=== PATIENT | male | born 1980 | race Caucasian/White ===

== ENCOUNTER 2017-11-06 16:05 | Emergency (ER) | payer SELFPAY ==
[2017-11-06] MEDS ORDERED: Lidocaine 1% 20 ML MDV INJECT ONE (16:51)
--- NOTE | 2017-11-06 16:56 | EDM.PDOC ---
ED HPI GENERAL MEDICAL PROBLEM - General Chief Complaint: Laceration Stated Complaint: CUT TO LEFT HAND Time Seen by Provider: 11/06/17 16:52 Source of Information: Reports: Patient History Limitations: Reports: No Limitations - History of Present Illness INITIAL COMMENTS - FREE TEXT/NARRATIVE: HISTORY AND PHYSICAL: []37-year-old male presenting with a laceration to the next finger on his left hand History of Present Illness: []This morning this patient was cutting something lacerated his finger there is a L flap. has full range of motion present. Gaping of wound is present when he has any movement Review of Systems: As per history of present illness and below otherwise all systems reviewed and negative. Past medical history: As per history of present illness and as reviewed below otherwise noncontributory. Surgical history: As per history of present illness and as reviewed below otherwise noncontributory. Social history: No reported history of drug or alcohol abuse. Family history: As per history of present illness and as reviewed below otherwise noncontributory. Physical exam: Alert and oriented. properly in full sentences without any shortness breath is nontoxic in appearance. HEENT: Atraumatic, normocehpalic, pupils reactive, negative for conjunctival pallor or scleral icterus, mucous membranes moist, throat clear, neck supple, nontender, trachea midline. Lungs: Clear to auscultation, breath sounds equal bilaterally, chest non tender. Heart: S1S2, regular, negative for clicks, rubs, or JVD. Abdomen: Soft, nondistended, nontender. Negative for masses or hepatossplenmegaly. Negative for costovertebral tenderness. Pelvis: Stable nontender. Genitourinary: Deferred. Rectal: Deferred Extremities: Atraumatic, negative for cords or calf pain. Neurovascular unremarkable. Neuro: Awake, alert, oriented. Cranial nerves II through XII unremarkable. Cerebellum unremarkable. Motor and sensory unremarkable throughout. Exam nonfocal. Diagnostics: [] Therapeutics: []Sutures placed Impression: []Laceration Plan: []Discharged home Keflex 500 3 times a day 7 days Sutures may be removed follow up with Dr. Mcgraw/ [facility] Building [address] [place] [address], [address] [place] [address] Definitive disposition and diagnosis as appropriate pending reevaluation and review of above. 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: Dressing(s) Left 2-Index finger Pain Score (Numeric/FACES): 9 - Related Data Allergies Allergy/AdvReac Type Severity Reaction Status Date / Time No Known Allergies Allergy Verified 11/06/17 16:17 Home Meds: Home Meds Cephalexin [Keflex] 500 mg PO Q8HR #21 capsule 11/06/17 [Rx] Past Medical History - Past Health History Medical/Surgical History: Denies Medical/Surgical History - Infectious Disease History Infectious Disease History: Reports: None Social & Family History - Family History Family Medical History: Noncontributory - Tobacco Use Smoking Status *Q: Current Every Day Smoker Years of Tobacco use: 20 Packs/Tins Daily: 1 - Caffeine Use Caffeine Use: Reports: None - Recreational Drug Use Recreational Drug Use: No ED ROS GENERAL - Review of Systems Review Of Systems: ROS reveals no pertinent complaints other than HPI. ED EXAM, SKIN/RASH Exam: See Below (See dictation) ED SKIN PROCEDURES - Laceration/Wound Repair Left Lateral Finger Lac/Wound length In cm: 3 Appearance: Subcutaneous, Mildly Contaminated Distal NVT: Neuro & Vascular Intact, No Tendon Injury Anesthetic Type: Local Local Anesthesia - Lidocaine (Xylocaine): 1% Plain Local Anesthetic Volume: Other (12) Skin Prep: Chlorhexidine (Hibiciens), Saline Exploration/Debridement/Repair: Wound Explored, Explored to Base Closed with: Sutures Suture Size: 4-0 # of Sutures: 8 Suture Type: Nylon, Interrupted, Simple Drain Placement: No Sterile Dressing Applied: Nurse Tetanus Status Addressed: Other (had 1 year ago) Complications: No Course - Vital Signs Last Recorded V/S: Last Vital Signs Temp 37.2 C 11/06/17 16:18 Pulse 105 H 11/06/17 16:18 Resp 16 11/06/17 16:18 BP 146/83 H 11/06/17 16:18 Pulse Ox 99 11/06/17 16:18 - Orders/Labs/Meds Meds: Medications Discontinued Medications Generic Name Dose Route Start Last Admin Trade Name Tata PRN Reason Stop Dose Admin Lidocaine HCl Confirm 11/06/17 16:57 Xylocaine-Mpf 1% Administered 11/06/17 16:58 Dose 15 mls @ as directed .ROUTE .STK-MED ONE Lidocaine HCl 20 ml 11/06/17 16:51 Xylocaine 1% INJECT 11/06/17 16:52 ONETIME ONE Lidocaine HCl 15 ml 11/06/17 16:59 Xylocaine-Mpf 1% INJECT 11/06/17 17:00 ONETIME ONE Departure - Departure Time of Disposition: 17:43 Disposition: Home, Self-Care 01 Condition: Good Clinical Impression: Laceration of finger of left hand Qualifiers: Encounter type: initial encounter Finger: index finger Damage to nail status: without damage Foreign body presence: unspecified Qualified Code(s): S61.211A - Laceration without foreign body of left index finger without damage to nail, initial encounter - Discharge Information Prescriptions: Cephalexin [Keflex] 500 mg PO Q8HR #21 capsule Instructions: Wound Care, Adult, Stitches, [place], or Adhesive Wound Closure, [id number] Referrals: PCP,None [Primary Care Provider] - Yancy Mcgraw MD [Physician] - Forms: ED Department Discharge Additional Instructions: The following information is given to patients seen in the emergency department who are being discharged to home. This information is to outline your options for follow-up care. We provide all patients seen in our emergency department with a follow-up referral. The need for follow-up, as well as the timing and circumstances, are variable depending upon the specifics of your emergency department visit. If you don't have a primary care physician on staff, we will provide you with a referral. We always advise you to contact your personal physician following an emergency department visit to inform them of the circumstance of the visit and for follow-up with them and/or the need for any referrals to a consulting specialist. The emergency department will also refer you to a specialist when appropriate. This referral assures that you have the opportunity for followup care with a specialist. All of these measure are taken in an effort to provide you with optimal care, which includes your followup. Under all circumstances we always encourage you to contact your private physician who remains a resource for coordinating your care. When calling for followup care, please make the office aware that this follow-up is from your recent emergency room visit. If for any reason you are refused follow-up, please contact the [facility] emergency department at and asked to speak to the emergency department charge nurse. Follow-up with Dr. Safia Felder for an appointment [facility] Professional [address], [address] [place] [address]
[2017-11-06] MEDS ORDERED: LIDOCAINE 1% ONE (16:57)
[2017-11-06] MEDS ORDERED: Bacitracin Oint 1 GM U/D Packet TOP ONE (17:43)
== END 2017-11-06 18:04 | disposition home or self-care (01) ==
LOC: MW.ED 16:05
DX: S61.211A Laceration without foreign body of left index finger without damage to nail, initial encounter (principal); F17.210 Nicotine dependence, cigarettes, uncomplicated; W26.9XXA Contact with unspecified sharp object(s), initial encounter
CPT/HCPCS: 99282

== ENCOUNTER 2021-03-16 22:01 | Inpatient (IN) | payer SELFPAY ==
[2021-03-16] MEDS ORDERED: Sodium Chloride 0.9% 1,000 ML IV SCH (23:30)
[2021-03-16 23:48] LABS: BLOOD UREA NITROGEN,BUN 8 mg/dL (7.0-18.0); CARBON DIOXIDE,CO2 33.1 mmol/L (21.0-32.0); CHLORIDE,CL 93 mmol/L (98-107); GLUCOSE RANDOM 109 mg/dL (74-106); POTASSIUM,K 5.4 mmol/L (3.5-5.1); SODIUM,NA 130 mmol/L (136-148)
[2021-03-16 23:49] LABS: ACETAMINOPHEN <2.0 ug/mL
[2021-03-17] MEDS ORDERED: Iopamidol 755 MG/ML 500 ML Multipack Bottle IVPUSH STA (00:22)
--- NOTE | 2021-03-17 01:19 | CT ---
Indication: Right upper quadrant pain and distension Technique: Contrast enhanced axial CT imaging through the abdomen and pelvis. 100 mL Isovue 370 contrast agent was administered intravenously. Sagittal and coronal reconstructions are provided. Comparison: None Findings: Hepatic cirrhosis. Moderate ascites. Splenomegaly. Gastric varices. Cholelithiasis. Unremarkable pancreas, adrenal glands, and kidneys. Patent portal vein, hepatic veins, IVC, and renal veins. Normal caliber abdominal aorta. No significant lymphadenopathy. Unremarkable stomach. Normal caliber small bowel. No colonic wall thickening. Normal appendix. Unremarkable urinary bladder. No significant osseous abnormality. Partially visualized left pleural effusion adjacent compressive atelectasis. Impression: 1. Hepatic cirrhosis with sequela of portal hypertension, including moderate ascites. 2. Partially visualized left pleural effusion. 3. Cholelithiasis. Please note that all CT scans at this facility use dose modulation, iterative reconstruction, and/or weight-based dosing when appropriate to reduce radiation dose to as low as reasonably achievable. Dictated by Johnny Valadez MD @ 03/17/2021 1:18:02 AM (Electronically Signed)
--- NOTE | 2021-03-17 04:10 | EDM.PDOC ---
ED HPI GENERAL MEDICAL PROBLEM - General Chief Complaint: Abdominal Pain Stated Complaint: ABDOMINAL PAIN, STOMACH FEELS HARD Time Seen by Provider: 03/16/21 23:07 - History of Present Illness INITIAL COMMENTS - FREE TEXT/NARRATIVE: CHIEF COMPLAINT(S): Abdominal distention HISTORY OF PRESENT ILLNESS: This is a 40-year-old man without any reported past medical history who comes to the emergency department with a chief complaint of abdominal distention. The patient states over the last 3 weeks he has noticed that his abdomen has gotten big and hard. He describes diffuse abdominal pain which is rated 2-3 out of 10. He denies any nausea, vomiting, diarrhea, melena, hematochezia, hematemesis or bilious emesis. He states that this is never happened before. He denies any chest pain, shortness of breath, fever or chills . He denies any dysuria hematuria. He denies any travel. He states that he has taken Marylou which did not help with the pain and denies any excessive alcohol use. REVIEW OF SYSTEMS: Constitutional: Denies fever, chills. Eyes: Denies eye pain Ears, Nose, Mouth, & Throat: Denies earache Cardiovascular: Denies chest pain Respiratory: Denies shortness of breath Gastrointestinal: Positive for abdominal pain and distention. Denies nausea, vomiting, diarrhea, hematochezia, hematemesis, bilious emesis Genitourinary: Denies hematuria Skin:Denies a rash MSK: Denies joint pain Neurological: Denies blurred vision Psychiatric: Denies depression PAST MEDICAL HISTORY: As per history of present illness and as reviewed below otherwise noncontributory. SURGICAL HISTORY: As per history of present illness and as reviewed below otherwise noncontributory. SOCIAL HISTORY: As per history of present illness and as reviewed below otherwise noncontributory. FAMILY HISTORY: As per history of present illness and as reviewed below otherwise noncontributory. EXAMINATION OF ORGAN SYSTEMS/BODY AREAS: Constitutional: Blood pressure is 135/79, heart rate 120, respiratory rate 20 with an oxygen saturation of 95% on room air. Temperature 36.8 General: Young man who does not appear to be in acute distress Psychiatric: Appropriate mood and affect. Eyes: Scleral icterus is present. No conjunctival erythema. Vertical or horizontal nystagmus is not present. Extraocular movements are intact. ENMT: Moist mucous membranes. No pharyngeal erythema Cardiovascular: Regular, rate, and rhythm. No gallops, murmurs, or rubs. Bilateral upper extremity pulses symmetric and intact. No peripheral edema. No JVD. Respiratory: Lungs clear to auscultation bilaterally. No wheezes, rales, or rhonchi. Gastrointestinal: Soft, distended, positive fluid wave, tenderness to palpation throughout the abdomen. No rebound or guarding. Normoactive bowel sounds Genitourinary: No suprapubic tenderness Musculoskeletal: Normal range of motion. Skin: Jaundice is present Neurological: Alert, GCS 15 MEDICAL DECISION MAKING AND COURSE IN THE ED WITH INTERPRETATION/REVIEW OF DIAGNOSTIC STUDIES: This is a 40-year-old man without any significant reported past medical history who comes to the emergency department with jaundice and diffuse abdominal pain and distention. At this time I did have a discussion w ith the patient regarding his alcohol use. He states that he has not had alcohol in the last 3 weeks. He states that prior to this he would drink every other day an unknown amount. He denies any history of alcohol withdraw or hepatitis or cirrhosis. At this time given his abdominal pain will obtain a CT abdomen pelvis with IV contrast for further evaluation. Will obtain labs including CBC, CMP, INR, serum drug screen including Tylenol and a Covid swab. We will provide the patient with 1 L of normal saline given the tachycardia and reevaluate after this. We did obtain an EKG which not reveal any acute signs of ischemia or peaked T waves. DDx includes: alcoholic hepatitis, liver failure, cholecystitis, choledocholithiasis. Laboratory: CBC reveals a leukocytosis 11.61, macrocytic anemia with an MCV of 102, hemoglobin of 12.7 and hematocrit of 35.5. Thrombocytopenia with a platelet count of 148. CMP reveals hyponatremia at 130, hyperkalemia at 5.4, hypochloremia at 93, metabolic alkalosis with a bicarbonate of 33.1 with a normal kidney function. Hyperglycemia at 109, hypocalcemia at 7.5, hypomagnesemia at 1.5, hyperbilirubinemia with a bilirubin of 8.2, AST of 154, ALT of 29 otherwise unremarkable. Albumin is low at 2.0. Serum alcohol, serum Tylenol and serum salicylates are negative. Covid is negative. The radiological images were viewed by myself along with reading the report from the radiologist. CT abdomen pelvis with contrast reveals hepatic cirrhosis with sequelae of portal hypertension including moderate ascites. Partially visualized left pleural effusion. Cholelithiasis. After imaging I did have a discussion with the patient. At this time on cardiac monitoring his pulse oximetry was 98% on room air and was sinus rhythm on the monitor at heart rate of 90. At this time given his abdominal pain, ascites I did discuss that I would like to perform a paracentesis to evaluate for spontaneous bacterial peritonitis. At this time the patient does not meet any septic criteria other than tachycardia the patient does not have a respiratory rate greater than 20 white blood cell count greater than 12, and the patient is not febrile or hypothermic. Written consent was obtained and placed in the chart. PARACENTESIS PROCEDURE NOTE Performed by: Myself Consent: Written consent obtained. Risks and benefits: risks, benefits and alternatives were discussed Consent given by: patient Patient understanding: patient states understanding of the procedure being performed Patient consent: the patient's understanding of the procedure matches consent given Procedure consent: procedure consent matches procedure scheduled Required items: required blood products, implants, devices, and special equipment available Patient identity confirmed: arm band and verbally with patient Time out: Immediately prior to procedure a "time out" was called to verify the correct patient, procedure, equipment, office support clerk and site/side marked as required. Utilizing ultrasound the best fluid pocket was identified as llq Preparation: Patient was prepped and draped in the usual sterile fashion. Local anesthesia used: yes Anesthesia: local infiltration Local anesthetic: lidocaine 1% without epinephrine Anesthetic total: 4 ml Patient sedated: no Patient tolerance: Patient tolerated the procedure well with no immediate complications. Comments: 2 liters removed without complication and studies were sent to lab. Laboratory: Fluid cell count reveals a white blood cell count of 158 with polymorphonuclear cells of 19, fluid glucose was 106 and total protein of 1.6. This does not indicate spontaneous bacterial peritonitis. Given the include liver failure I did discuss admission with the patient. I discussed that I would like to admit him to the hospital. He was amenable to this plan. I contacted Dr. Shoemaker who recommended consultation with GI specialist regarding further recommendations and possible transfer given his meld score. I contacted [facility] in [place] and spoke with Dr. Willson who stated that at this time he recommends supportive care. He recommends a serum CRP and if it is elevated to start antibiotics. He recommended vitamin K and she rechecking his INR. He states that he recommends getting a hepatitis panel and to evaluate for autoimmune hepatitis. In addition rule out other causes of infection. I ordered a chest x-ray and a urinalysis. I ordered a CRP. Laboratory: CRP is 6 and ammonia is 84. The radiological images were viewed by myself along with reading the report from the radiologist. Chest x-ray does not reveal any acute cardiopulmonary process. There is a tiny left pleural effusion. At this time given the elevated CRP I did obtain blood cultures and started the patient on Zosyn. The patient's had still not yet provided a urinalysis at this time. Therefore I contacted Dr. Shoemaker and she accepted the patient for admission. DISPOSITION: The patient was admitted to the hospital in stable condition CONDITION: Serious PROCEDURES: Cardiac monitoring interpretation, pulse oximetry interpretation, paracentesis FINAL IMPRESSION(S)/DIAGNOSES: 1. Acute liver failure secondary to alcoholic hepatitis 2. Acute alcoholic hepatitis 3. Acute thrombocytopenia likely secondary to #1 and #2. 4. Acute hyperammonemia likely secondary to #1 5. Acute hypoalbuminemia secondary to #1 Critical Care Procedure Note Authorized and performed by: Ricardo Grayson M.D. Critical Care Time: 85 minutes Due to a high probability of clinically significant, life threatening deterioration, the patient required my highest level of preparedness to intervene emergently and I personally spent this critical care time directly and personally managing the patient. This critical care time included obtaining a history, examining the patient, pulse oximetry; ordering and review of studies; arranging urgent treatment with development of a management plan; evaluation of a patients reponse to treatment; frequent assessment; and discussions with other providers. This critical care time was performed to assess and manage the high probability of imminent, life threatening deterioration that could result in mul tiorgan failure. It was exclusive of separate billable procedures and treating other patients. Please see MDM section and rest of the note for further information on patient assessment and treatment. Please see MDM section and rest of the note for further information on patient assessment and treatment. Ricardo Grayson M.D. Upper Abdomen Pain Score (Numeric/FACES): 6 - Related Data Allergies Allergy/AdvReac Type Severity Reaction Status Date / Time No Known Allergies Allergy Verified 03/16/21 22:50 Home Meds: Home Meds . [No Known Home Meds] 03/16/21 [History] Past Medical History - Past Health History Medical/Surgical History: Denies Medical/Surgical History Genitourinary History: Reports: Acute Renal Failure, Other (See Below) Other Genitourinary History: states was put on abx 4 or 5 yrs ago that put him in kidney failure Musculoskeletal History: Reports: Other (See Below) Other Musculoskeletal History: chronic left hip pain Endocrine/Metabolic History: Reports: Obesity/BMI 30+ Dermatologic History: Reports: Other (See Below) Other Dermatologic History: infection of left butt cheek several years ago and still drains - Infectious Disease History Infectious Disease History: Reports: Chicken Pox - Past Surgical History Dermatological Surgical History: Reports: Other (See Below) Social & Family History - Family History Family Medical History: No Pertinent Family History - Caffeine Use Caffeine Use: Reports: None - Recreational Drug Use Recreational Drug Use: No ED ROS GENERAL - Review of Systems Review Of Systems: See Below ED EXAM, GENERAL - Physical Exam Exam: See Below Course - Vital Signs Last Recorded V/S: Last Vital Signs Temp 36.8 C 03/16/21 22:47 Pulse 101 H 03/17/21 04:27 Resp 16 03/17/21 04:27 BP 109/61 03/17/21 04:27 Pulse Ox 94 L 03/17/21 04:27 - Orders/Labs/Meds Orders: Active Orders 24 hr Category Date Time Status Admission Status [Patient Status] [ADT] Stat ADT 03/17/21 05:16 Active Ambulate [RC] ASDIRECTED Care 03/17/21 05:20 Active Antiembolic Devices [RC] PER UNIT ROUTINE Care 03/17/21 05:21 Active CIWAA Assessment [RC] ASDIRECTED Care 03/17/21 05:31 Active Oxygen Therapy [RC] PRN Care 03/17/21 05:20 Active Pulse Oximetry [RC] PRN Care 03/17/21 05:20 Active RT Aerosol Therapy [RC] ASDIRECTED Care 03/17/21 05:21 Active VTE/DVT Education [RC] PER UNIT ROUTINE Care 03/17/21 05:20 Active Vital Signs [RC] Q4H Care 03/17/21 05:20 Active CULTURE BLOOD [BC] Stat Lab 03/17/21 04:33 Received CULTURE BLOOD [BC] Stat Lab 03/17/21 05:18 Received HEPATITIS PANEL (4) [REF] Stat Lab 03/17/21 03:55 Received MISCELLANEOUS CULT [MREF] Stat Lab 03/17/21 02:15 Received UA W/MAHOGANY RFLX IF INDICATED [URIN] Stat Lab 03/17/21 03:44 Ordered Albuterol/Ipratropium [DuoNeb 3.0-0.5 MG/3 ML] Med 03/17/21 05:20 Active 3 ml NEB Q4HRRT PRN LORazepam [Ativan] Med 03/17/21 05:31 Active See Protocol IVPUSH Q4H PRN Lactated Ringers [Ringers, Lactated] 1,000 ml Med 03/17/21 05:30 Active IV ASDIRECTED Ondansetron [Zofran] Med 03/17/21 05:20 Active 4 mg IVPUSH Q4H PRN Pantoprazole [ProTONIX IV] 40 mg Med 03/18/21 09:00 Active Sodium Chloride 0.9% [Normal Saline] 10 ml IV Q24H Piperacillin/Tazobactam [Piperacil-Tazobact] 3.375 gm Med 03/17/21 13:00 Active Sodium Chloride 0.9% [Normal Saline AdvBag] 50 ml IV Q8H Piperacillin/Tazobactam [Piperacil-Tazobact] 4.5 gm Med 03/17/21 04:34 Active Sodium Chloride 0.9% [Normal Saline AdvBag] 100 ml IV ONETIME Sodium Chloride 0.9% [Normal Saline] 1,000 ml Med 03/16/21 23:30 Active IV ASDIRECTED Spironolactone [Aldactone] Med 03/17/21 09:00 Active 25 mg PO DAILY Blood Culture x2 Reflex Set [OM.PC] Stat Oth 03/17/21 04:33 Ordered Sequential Compression Device [OM.PC] Per Unit Routine Oth 03/17/21 05:20 Ordered Resuscitation Status Routine Resus Stat 03/17/21 05:20 Ordered Medication Orders Albuterol/Ipratropium (Albuterol/Ipratropium 3.0-0.5 Mg/3 Ml Neb Soln) 3 ml NEB Q4HRRT PRN PRN Reason: Shortness Of Breath/wheezing Sodium Chloride (Normal Saline) 1,000 mls @ 999 mls/hr IV ASDIRECTED [facility] Last Admin: 03/17/21 00:28 Dose: 999 mls/hr Documented by: SEAGMIC Lactated Ringer's (Ringers, Lactated) 1,000 mls @ 125 mls/hr IV ASDIRECTED [facility] Pantoprazole Sodium 40 mg/ (Sodium Chloride) 10 mls @ 300 mls/hr IV Q24H GEORGE Piperacillin Sod/Tazobactam (Sod 3.375 gm/ Sodium Chloride) 50 mls @ 100 mls/hr IV Q8H GEORGE Lorazepam (Lorazepam 2 Mg/Ml Sdv) 0 mg IVPUSH Q4H PRN; Protocol PRN Reason: Withdrawal Symptoms Ondansetron HCl (Ondansetron 4 Mg/2 Ml Sdv) 4 mg IVPUSH Q4H PRN PRN Reason: Nausea/Vomiting Spironolactone (Spironolactone 25 Mg Tab) 25 mg PO DAILY [facility] Labs: Laboratory Tests 03/16/21 03/16/21 03/16/21 Range/Units 23:25 23:25 23:25 WBC 11.61 H (4.0-11.0) K/uL RBC 3.48 L (4.50-5.90) M/uL Hgb 12.7 L (13.0-17.0) g/dL Hct 35.5 L (38.0-50.0) % MCV 102.0 H (80.0-98.0) fL MCH 36.5 H (27.0-32.0) pg MCHC 35.8 (31.0-37.0) g/dL RDW Std Deviation 57.5 (28.0-62.0) fl RDW Coeff of Briseida 16 H (11.0-15.0) % Plt Count 148 L (150-400) K/uL MPV 12.50 H (7.40-12.00) fL Neut % (Auto) 74.9 (48.0-80.0) % Lymph % (Auto) 15.0 L (16.0-40.0) % Rhea % (Auto) 9.3 (0.0-15.0) % Eos % (Auto) 0.3 (0.0-7.0) % Baso % (Auto) 0.5 (0.0-1.5) % Neut # (Auto) 8.7 H (1.4-5.7) K/uL Lymph # (Auto) 1.7 (0.6-2.4) K/uL Rhea # (Auto) 1.1 H (0.0-0.8) K/uL Eos # (Auto) 0.0 (0.0-0.7) K/uL Baso # (Auto) 0.1 (0.0-0.1) K/uL Nucleated RBC % 0.0 /100WBC Nucleated RBCs # 0 K/uL INR 2.08 Sodium 130 L (136-148) mmol/L Potassium 5.4 H (3.5-5.1) mmol/L Chloride 93 L (98-107) mmol/L Carbon Dioxide 33.1 H (21.0-32.0) mmol/L BUN 8 (7.0-18.0) mg/dL Creatinine 0.8 (0.8-1.3) mg/dL Est Cr Clr Drug Dosing 152.20 mL/min Estimated GFR (MDRD) > 60.0 ml/min Glucose 109 H (74-106) mg/dL Lactic Acid (0.4-2.0) mmol/L Calcium 7.5 L (8.5-10.1) mg/dL Magnesium 1.5 L (1.8-2.4) mg/dL Total Bilirubin 8.2 H (0.2-1.0) mg/dL AST 154 H (15-37) IU/L ALT 29 (14-63) IU/L Alkaline Phosphatase 102 (46-116) U/L Ammonia (19-54) ug/dL Creatine Kinase 291 (26-308) U/L C-Reactive Protein (0.00-0.90) mg/dL Total Protein 8.9 H (6.4-8.2) g/dL Albumin 2.0 L (3.4-5.0) g/dL Globulin 6.9 H (2.6-4.0) g/dL Albumin/Globulin Ratio 0.3 L (0.9-1.6) Fluid Type Fluid Color Fluid Appearance Fluid WBC /uL Fluid RBC /uL Fluid Mononuclear Cell % Fl Polymorphonucl Cell % Fluid Glucose mg/dL Fluid Total Protein g/dL Salicylates (0-20) mg/dL Acetaminophen ug/mL Ethyl Alcohol <3 mg/dL Hep Bs Antigen Index (<1.0) INDEX Hep Bs Antibody Index mIU/mL Hep C Ab Index (LAURA) (<0.8) INDEX SARS-CoV-2 RNA (JESÚS) (NEGATIVE) 03/16/21 03/16/21 03/16/21 Range/Units 23:25 23:25 23:30 WBC (4.0-11.0) K/uL RBC (4.50-5.90) M/uL Hgb (13.0-17.0) g/dL Hct (38.0-50.0) % MCV (80.0-98.0) fL MCH (27.0-32.0) pg MCHC (31.0-37.0) g/dL RDW Std Deviation (28.0-62.0) fl RDW Coeff of Briseida (11.0-15.0) % Plt Count (150-400) K/uL MPV (7.40-12.00) fL Neut % (Auto) (48.0-80.0) % Lymph % (Auto) (16.0-40.0) % Rhea % (Auto) (0.0-15.0) % Eos % (Auto) (0.0-7.0) % Baso % (Auto) (0.0-1.5) % Neut # (Auto) (1.4-5.7) K/uL Lymph # (Auto) (0.6-2.4) K/uL Rhea # (Auto) (0.0-0.8) K/uL Eos # (Auto) (0.0-0.7) K/uL Baso # (Auto) (0.0-0.1) K/uL Nucleated RBC % /100WBC Nucleated RBCs # K/uL INR Sodium (136-148) mmol/L Potassium (3.5-5.1) mmol/L Chloride (98-107) mmol/L Carbon Dioxide (21.0-32.0) mmol/L BUN (7.0-18.0) mg/dL Creatinine (0.8-1.3) mg/dL Est Cr Clr Drug Dosing mL/min Estimated GFR (MDRD) ml/min Glucose (74-106) mg/dL Lactic Acid 1.6 (0.4-2.0) mmol/L Calcium (8.5-10.1) mg/dL Magnesium (1.8-2.4) mg/dL Total Bilirubin (0.2-1.0) mg/dL AST (15-37) IU/L ALT (14-63) IU/L Alkaline Phosphatase (46-116) U/L Ammonia (19-54) ug/dL Creatine Kinase (26-308) U/L C-Reactive Protein (0.00-0.90) mg/dL Total Protein (6.4-8.2) g/dL Albumin (3.4-5.0) g/dL Globulin (2.6-4.0) g/dL Albumin/Globulin Ratio (0.9-1.6) Fluid Type Fluid Color Fluid Appearance Fluid WBC /uL Fluid RBC /uL Fluid Mononuclear Cell % Fl Polymorphonucl Cell % Fluid Glucose mg/dL Fluid Total Protein g/dL Salicylates <0.2 (0-20) mg/dL Acetaminophen <2.0 ug/mL Ethyl Alcohol mg/dL Hep Bs Antigen Index (<1.0) INDEX Hep Bs Antibody Index mIU/mL Hep C Ab Index (LAURA) (<0.8) INDEX SARS-CoV-2 RNA (JESÚS) NEGATIVE (NEGATIVE) 03/17/21 03/17/21 03/17/21 Range/Units 02:15 02:47 03:55 WBC (4.0-11.0) K/uL RBC (4.50-5.90) M/uL Hgb (13.0-17.0) g/dL Hct (38.0-50.0) % MCV (80.0-98.0) fL MCH (27.0-32.0) pg MCHC (31.0-37.0) g/dL RDW Std Deviation (28.0-62.0) fl RDW Coeff of Briseida (11.0-15.0) % Plt Count (150-400) K/uL MPV (7.40-12.00) fL Neut % (Auto) (48.0-80.0) % Lymph % (Auto) (16.0-40.0) % Rhea % (Auto) (0.0-15.0) % Eos % (Auto) (0.0-7.0) % Baso % (Auto) (0.0-1.5) % Neut # (Auto) (1.4-5.7) K/uL Lymph # (Auto) (0.6-2.4) K/uL Rhea # (Auto) (0.0-0.8) K/uL Eos # (Auto) (0.0-0.7) K/uL Baso # (Auto) (0.0-0.1) K/uL Nucleated RBC % /100WBC Nucleated RBCs # K/uL INR Sodium (136-148) mmol/L Potassium (3.5-5.1) mmol/L Chloride (98-107) mmol/L Carbon Dioxide (21.0-32.0) mmol/L BUN (7.0-18.0) mg/dL Creatinine (0.8-1.3) mg/dL Est Cr Clr Drug Dosing mL/min Estimated GFR (MDRD) ml/min Glucose (74-106) mg/dL Lactic Acid (0.4-2.0) mmol/L Calcium (8.5-10.1) mg/dL Magnesium (1.8-2.4) mg/dL Total Bilirubin (0.2-1.0) mg/dL AST (15-37) IU/L ALT (14-63) IU/L Alkaline Phosphatase (46-116) U/L Ammonia 84 H (19-54) ug/dL Creatine Kinase (26-308) U/L C-Reactive Protein 6.00 H (0.00-0.90) mg/dL Total Protein (6.4-8.2) g/dL Albumin (3.4-5.0) g/dL Globulin (2.6-4.0) g/dL Albumin/Globulin Ratio (0.9-1.6) Fluid Type PER Fluid Color YELLOW Fluid Appearance CLEAR Fluid WBC 158 /uL Fluid RBC < 3000 /uL Fluid Mononuclear Cell 81 % Fl Polymorphonucl Cell 19 % Fluid Glucose 106 mg/dL Fluid Total Protein 1.6 g/dL Salicylates (0-20) mg/dL Acetaminophen ug/mL Ethyl Alcohol mg/dL Hep Bs Antigen Index 0.2 (<1.0) INDEX Hep Bs Antibody Index < 3.1 mIU/mL Hep C Ab Index (LAURA) 0.23 (<0.8) INDEX SARS-CoV-2 RNA (JESÚS) (NEGATIVE) Meds: Medications Generic Name Dose Route Start Last Admin Trade Name Tata PRN Reason Stop Dose Admin Albuterol/Ipratropium 3 ml 03/17/21 05:20 Albuterol/Ipratropium 3.0-0.5 Mg/3 Ml Neb Soln NEB Q4HRRT PRN Shortness Of Breath/wheezing Sodium Chloride 1,000 mls @ 999 mls/hr 03/16/21 23:30 03/17/21 00:28 Normal Saline IV 999 mls/hr ASDIRECTED GEORGE Administration Lactated Ringer's 1,000 mls @ 125 mls/hr 03/17/21 05:30 Ringers, Lactated IV ASDIRECTED GEORGE Pantoprazole Sodium 40 mg/ 10 mls @ 300 mls/hr 03/18/21 09:00 Sodium Chloride IV Q24H GEORGE Piperacillin Sod/Tazobactam 50 mls @ 100 mls/hr 03/17/21 13:00 Sod 3.375 gm/ Sodium Chloride IV Q8H GEORGE Lorazepam 0 mg 03/17/21 05:31 Lorazepam 2 Mg/Ml Sdv IVPUSH Q4H PRN Withdrawal Symptoms Protocol Ondansetron HCl 4 mg 03/17/21 05:20 Ondansetron 4 Mg/2 Ml Sdv IVPUSH Q4H PRN Nausea/Vomiting Spironolactone 25 mg 03/17/21 09:00 Spironolactone 25 Mg Tab PO DAILY GEORGE Discontinued Medications Generic Name Dose Route Start Last Admin Trade Name Tata PRN Reason Stop Dose Admin Piperacillin Sod/Tazobactam 100 mls @ 100 mls/hr 03/17/21 04:34 03/17/21 04:42 Sod 4.5 gm/ Sodium Chloride IV 03/17/21 05:33 100 mls/hr ONETIME ONE Administration Pantoprazole Sodium 80 mg/ 20 mls @ 420 mls/hr 03/17/21 05:15 Sodium Chloride IVPUSH 03/17/21 05:17 ONETIME ONE Iopamidol 100 ml 03/17/21 00:22 03/17/21 00:23 Iopamidol 755 Mg/Ml 500 Ml Multipack Bottle IVPUSH 03/17/21 00:23 100 ml ONETIME STA Administration Phytonadione 5 mg 03/17/21 05:15 Phytonadione 5 Mg Tab PO 03/17/21 05:16 ONETIME ONE Departure - Departure Time of Disposition: 05:16 Disposition: Admitted As Inpatient 67 Condition: Serious Clinical Impression: Liver failure, acute - Discharge Information Referrals: PCP,None [Primary Care Provider] - Forms: ED Department Discharge Sepsis Event Note (ED) - Evaluation Sepsis Screening Result: No Definite Risk - Focused Exam Vital Signs: Vital Signs Temp Pulse Resp BP Pulse Ox 03/17/21 04:27 101 H 16 109/61 94 L 03/17/21 02:37 104 H 18 126/61 95 03/17/21 00:28 104 H 19 127/72 96 03/16/21 22:47 36.8 C 120 H 20 135/79 95 - My Orders Last 24 Hours: My Active Orders 03/16/21 23:30 Sodium Chloride 0.9% [Normal Saline] 1,000 ml IV ASDIRECTED 03/17/21 02:15 MISCELLANEOUS CULT [MREF] Stat 03/17/21 03:44 UA W/MAHOGANY RFLX IF INDICATED [URIN] Stat 03/17/21 03:55 HEPATITIS PANEL (4) [REF] Stat 03/17/21 04:33 CULTURE BLOOD [BC] Stat Blood Culture x2 Reflex Set [OM.PC] Stat 03/17/21 05:16 Admission Status [Patient Status] [ADT] Stat 03/17/21 05:18 CULTURE BLOOD [BC] Stat - Assessment/Plan Last 24 Hours: My Active Orders 03/16/21 23:30 Sodium Chloride 0.9% [Normal Saline] 1,000 ml IV ASDIRECTED 03/17/21 02:15 MISCELLANEOUS CULT [MREF] Stat 03/17/21 03:44 UA W/MAHOGANY RFLX IF INDICATED [URIN] Stat 03/17/21 03:55 HEPATITIS PANEL (4) [REF] Stat 03/17/21 04:33 CULTURE BLOOD [BC] Stat Blood Culture x2 Reflex Set [OM.PC] Stat 03/17/21 05:16 Admission Status [Patient Status] [ADT] Stat 03/17/21 05:18 CULTURE BLOOD [BC] Stat
--- NOTE | 2021-03-17 04:11 | PCM.EKG ---
#1 Interpretation EKG Date: 03/17/21 Time: 03:21 Rhythm: NSR Rate (Beats/Min): 100 [place]: Normal P-Wave: Present QRS: Normal ST-T: Normal QT: Normal Comparison: NA - No Prior EKG EKG Interpretation Comments: Sinus Rhythm with nonspecific T wave inversions.
[2021-03-17] MEDS ORDERED: Piperacillin/Tazobactam 4.5 GM in Sodium Chloride 0.9% 100 ML IV ONE (04:34)
--- NOTE | 2021-03-17 05:13 | CR ---
HISTORY: Pleural effusion. COMPARISON: CT of the abdomen and pelvis from earlier today at 00 27 hours FINDINGS: A portable erect AP view of the chest was obtained at 0400 hours. A small left pleural effusion is seen, consistent with the appearance on CT. There is mild linear atelectasis in the left lateral lung base, similar in appearance to the previous CT. The rest of the chest is clear. The heart remains normal in size. The mediastinum is normal in appearance. The osseous structures are normal in appearance for the patient`s age. IMPRESSION: Tiny left pleural effusion, nearly is evident as on the previous CT. Mild linear atelectasis in the left lung base. Dictated by Fadi Sheehan MD @ 03/17/2021 5:12:31 AM (Electronically Signed)
[2021-03-17] MEDS ORDERED: Phytonadione 5 MG Tab PO ONE (05:15)
[2021-03-17] MEDS ORDERED: Pantoprazole 80 MG in Sodium Chloride 0.9% 20 ML IVPUSH ONE (05:15)
[2021-03-17] MEDS ORDERED: Ondansetron 4 MG/2 ML SDV IVPUSH PRN (05:20)
[2021-03-17] MEDS ORDERED: Albuterol/Ipratropium 3.0-0.5 MG/3 ML Neb Soln NEB PRN (05:20)
[2021-03-17] MEDS ORDERED: LORazepam 2 MG/ML SDV IVPUSH PRN (05:31)
[2021-03-17] MEDS: Lactated Ringers 1,000 ML IV SCH ×2 (07:54→17:25)
--- NOTE | 2021-03-17 08:09 | PCM.HP.2 ---
<Mirta Goddard - Last Filed: 03/17/21 19:31> H&P History of Present Illness - General Date of Service: 03/17/21 Admit Problem/Dx: Admission Diagnosis/Problem Admission Diagnosis/Problem Acute liver failure - History of Present Illness Initial Comments - Free Text/Narative: 40-year-old male with history of alcohol abuse presents to the ER complaining of abdominal distention. Patient states he has cut down on his alcohol use to 3 drinks per day from previously 7-10 drinks per day. As per patient, the distention has worsened over the last 3 weeks and is now become tense and diffuse. Patient has associated abdominal pain but denies exquisite tenderness. Denies fever, chills, nausea, vomiting, diarrhea, hematemesis. Patient denies previous episodes of ascites or SBP. No history of withdrawals or seizures. Denies history of alcoholic hepatitis or cirrhosis. ER course: Patient presents with scleral icterus, jaundice and pulse of 120. Distended, soft abdomen with positive fluid wave. Generalized tenderness throughout the abdomen. Negative for rebound. EKG was negative for ischemia. CXR negative for acute cardiopulmonary process. Tiny left pleural effusion. CT abdomen pelvis shows hepatic cirrhosis with sequelae of portal hypertension and moderate ascites. Left pleural effusion. Cholelithiasis. Paracentesis performed by ER physician, 2 L fluid removed, negative for SBP. Fluid cell count WBC 158 with PMN 19, glucose 106, protein 1.6. Patient was started on IV Zosyn. Patient blood work revealed WBC 11.6, Hgb 12.7, MCV 102, platelet count 148. INR 2.08. Sodium 130. Potassium 5.4. Chloride 93. Bicarb 33. BUN 8. Creatinine 0.8. Glucose 109. Magnesium 1.5. Total bili 8.2. AST 154. ALT 29. Alk phos 102. Creatine kinase 291. Total protein 8.9. Albumin 2.0. Lactic acid 1.6. Ammonia 84. CRP 6. EtOH level less than 3, salicylate less than 0.2, acetaminophen less than 2.0. Past medical history: Patient denies. Medications: None. Allergies: NKDA. Social History: Heavy alcohol use x5-6 years. 7-10 drinks daily of vodka. Last 1 month has used 3 drinks/day. Smokes 1/2 PPD. Denies illicit drug use. Patient is . He has 3 children. Upper Abdomen Pain Score (Numeric/FACES): 6 - Related Data Allergies/Adverse Reactions: Allergies Allergy/AdvReac Type Severity Reaction Status Date / Time No Known Allergies Allergy Verified 03/16/21 22:50 Home Medications: Home Meds . [No Known Home Meds] 03/16/21 [History] Past Medical History - Past Health History Medical/Surgical History: Denies Medical/Surgical History Genitourinary History: Reports: Acute Renal Failure, Other (See Below) Other Genitourinary History: states was put on abx 4 or 5 yrs ago that put him in kidney failure Musculoskeletal History: Reports: Other (See Below) Other Musculoskeletal History: chronic left hip pain Endocrine/Metabolic History: Reports: Obesity/BMI 30+ Dermatologic History: Reports: Other (See Below) Other Dermatologic History: infection of left butt cheek several years ago and still drains - Infectious Disease History Infectious Disease History: Reports: Chicken Pox - Past Surgical History Dermatological Surgical History: Reports: Other (See Below) Social & Family History - Family History Family Medical History: No Pertinent Family History - Tobacco Use Tobacco Use Status *Q: Current Every Day Tobacco User Years of Tobacco use: 25 Packs/Tins Daily: 0.5 - Caffeine Use Caffeine Use: Reports: Soda - Alcohol Use Days Per Week of Alcohol Use: 3 Number of Drinks Per Day: 2 Total Drinks Per Week: 6 - Recreational Drug Use Recreational Drug Use: No H&P Review of Systems - Review of Systems: Review Of Systems: See Below General: Reports: Malaise, Weakness. Denies: Fever, Chills HEENT: Denies: Vertigo, Visual Changes Pulmonary: Denies: Shortness of Breath, Wheezing, Cough, Hemoptysis Cardiovascular: Reports: Edema, Lightheadedness. Denies: Chest Pain, Palpitations, Syncope Gastrointestinal: Reports: Abdominal Pain, Anorexia, Decreased Appetite, Distension. Denies: Black Stool, Bloody Stool, Constipation, Diarrhea, Difficulty Swallowing, Hematemesis, Hematochezia, Melena, Nausea, Vomiting Genitourinary: Denies: Dysuria, Flank Pain Musculoskeletal: Denies: Leg Pain, Joint Swelling Skin: Reports: Jaundice Neurological: Reports: Headache. Denies: Confusion, Dizziness, Trouble Sp eaking, Gait Disturbance Exam - Exam Exam: See Below - Vital Signs Vital Signs: Last Vital Signs Temp 98.2 F 03/17/21 06:49 Pulse 96 03/17/21 06:49 Resp 18 03/17/21 06:49 BP 125/68 03/17/21 06:49 Pulse Ox 95 03/17/21 06:49 Weight: 103.419 kg - Exam General: Alert, Oriented, Cooperative HEENT: EOMI, Mucosa Moist & [place], Scleral Icterus Neck: Supple, Trachea Midline. No: JVD Lungs: Decreased Breath Sounds. No: Wheezing Cardiovascular: Regular Rate, Regular Rhythm GI/Abdominal Exam: Soft, Distended, Hepatomegaly. No: Guarding, Rigid, Rebound, Tender Back Exam: Normal Inspection. No: CVA Tenderness (L), CVA Tenderness (R) Extremities: Pedal Edema Peripheral Pulses: 2+: Dorsalis Pedis (L), Dorsalis Pedis (R) Skin: Other (Jaundice). No: Ecchymosis Neurological: No: Focal Deficit, Clonus Neuro Extensive - Mental Status: Alert, Oriented x3 - Patient Data Lab Results Last 24 hrs: Laboratory Results - last 24 hr 03/16/21 03/16/21 03/16/21 Range/Units 23:25 23:25 23:25 WBC 11.61 H (4.0-11.0) K/uL RBC 3.48 L (4.50-5.90) M/uL Hgb 12.7 L (13.0-17.0) g/dL Hct 35.5 L (38.0-50.0) % MCV 102.0 H (80.0-98.0) fL MCH 36.5 H (27.0-32.0) pg MCHC 35.8 (31.0-37.0) g/dL RDW Std Deviation 57.5 (28.0-62.0) fl RDW Coeff of Briseida 16 H (11.0-15.0) % Plt Count 148 L (150-400) K/uL MPV 12.50 H (7.40-12.00) fL Neut % (Auto) 74.9 (48.0-80.0) % Lymph % (Auto) 15.0 L (16.0-40.0) % [place] % (Auto) 9.3 (0.0-15.0) % Eos % (Auto) 0.3 (0.0-7.0) % Baso % (Auto) 0.5 (0.0-1.5) % Neut # (Auto) 8.7 H (1.4-5.7) K/uL Lymph # (Auto) 1.7 (0.6-2.4) K/uL [place] # (Auto) 1.1 H (0.0-0.8) K/uL Eos # (Auto) 0.0 (0.0-0.7) K/uL Baso # (Auto) 0.1 (0.0-0.1) K/uL Nucleated RBC % 0.0 /100WBC Nucleated RBCs # 0 K/uL INR 2.08 Sodium 130 L (136-148) mmol/L Potassium 5.4 H (3.5-5.1) mmol/L Chloride 93 L (98-107) mmol/L Carbon Dioxide 33.1 H (21.0-32.0) mmol/L BUN 8 (7.0-18.0) mg/dL Creatinine 0.8 (0.8-1.3) mg/dL Est Cr Clr Drug Dosing 152.20 mL/min Estimated GFR (MDRD) > 60.0 ml/min Glucose 109 H (74-106) mg/dL Lactic Acid (0.4-2.0) mmol/L Calcium 7.5 L (8.5-10.1) mg/dL Magnesium 1.5 L (1.8-2.4) mg/dL Total Bilirubin 8.2 H (0.2-1.0) mg/dL AST 154 H (15-37) IU/L ALT 29 (14-63) IU/L Alkaline Phosphatase 102 (46-116) U/L Ammonia (19-54) ug/dL Creatine Kinase 291 (26-308) U/L C-Reactive Protein (0.00-0.90) mg/dL Total Protein 8.9 H (6.4-8.2) g/dL Albumin 2.0 L (3.4-5.0) g/dL Globulin 6.9 H (2.6-4.0) g/dL Albumin/Globulin Ratio 0.3 L (0.9-1.6) Fluid Type Fluid Color Fluid Appearance Fluid WBC /uL Fluid RBC /uL Fluid Mononuclear Cell % Fl Polymorphonucl Cell % Fluid Glucose mg/dL Fluid Total Protein g/dL Salicylates (0-20) mg/dL Acetaminophen ug/mL Ethyl Alcohol <3 mg/dL Hep Bs Antigen Index (<1.0) INDEX Hep Bs Antibody Index mIU/mL Hep C Ab Index (LAURA) (<0.8) INDEX SARS-CoV-2 RNA (JESÚS) (NEGATIVE) 03/16/21 03/16/21 03/16/21 Range/Units 23:25 23:25 23:30 WBC (4.0-11.0) K/uL RBC (4.50-5.90) M/uL Hgb (13.0-17.0) g/dL Hct (38.0-50.0) % MCV (80.0-98.0) fL MCH (27.0-32.0) pg MCHC (31.0-37.0) g/dL RDW Std Deviation (28.0-62.0) fl RDW Coeff of Briseida (11.0-15.0) % Plt Count (150-400) K/uL MPV (7.40-12.00) fL Neut % (Auto) (48.0-80.0) % Lymph % (Auto) (16.0-40.0) % [place] % (Auto) (0.0-15.0) % Eos % (Auto) (0.0-7.0) % Baso % (Auto) (0.0-1.5) % Neut # (Auto) (1.4-5.7) K/uL Lymph # (Auto) (0.6-2.4) K/uL [place] # (Auto) (0.0-0.8) K/uL Eos # (Auto) (0.0-0.7) K/uL Baso # (Auto) (0.0-0.1) K/uL Nucleated RBC % /100WBC Nucleated RBCs # K/uL INR Sodium (136-148) mmol/L Potassium (3.5-5.1) mmol/L Chloride (98-107) mmol/L Carbon Dioxide (21.0-32.0) mmol/L BUN (7.0-18.0) mg/dL Creatinine (0.8-1.3) mg/dL Est Cr Clr Drug Dosing mL/min Estimated GFR (MDRD) ml/min Glucose (74-106) mg/dL Lactic Acid 1.6 (0.4-2.0) mmol/L Calcium (8.5-10.1) mg/dL Magnesium (1.8-2.4) mg/dL Total Bilirubin (0.2-1.0) mg/dL AST (15-37) IU/L ALT (14-63) IU/L Alkaline Phosphatase (46-116) U/L Ammonia (19-54) ug/dL Creatine Kinase (26-308) U/L C-Reactive Protein (0.00-0.90) mg/dL Total Protein (6.4-8.2) g/dL Albumin (3.4-5.0) g/dL Globulin (2.6-4.0) g/dL Albumin/Globulin Ratio (0.9-1.6) Fluid Type Fluid Color Fluid Appearance Fluid WBC /uL Fluid RBC /uL Fluid Mononuclear Cell % Fl Polymorphonucl Cell % Fluid Glucose mg/dL Fluid Total Protein g/dL Salicylates <0.2 (0-20) mg/dL Acetaminophen <2.0 ug/mL Ethyl Alcohol mg/dL Hep Bs Antigen Index (<1.0) INDEX Hep Bs Antibody Index mIU/mL Hep C Ab Index (LAURA) (<0.8) INDEX SARS-CoV-2 RNA (JESÚS) NEGATIVE (NEGATIVE) 03/17/21 03/17/21 03/17/21 Range/Units 02:15 02:47 03:55 WBC (4.0-11.0) K/uL RBC (4.50-5.90) M/uL Hgb (13.0-17.0) g/dL Hct (38.0-50.0) % MCV (80.0-98.0) fL MCH (27.0-32.0) pg MCHC (31.0-37.0) g/dL RDW Std Deviation (28.0-62.0) fl RDW Coeff of Briseida (11.0-15.0) % Plt Count (150-400) K/uL MPV (7.40-12.00) fL Neut % (Auto) (48.0-80.0) % Lymph % (Auto) (16.0-40.0) % [place] % (Auto) (0.0-15.0) % Eos % (Auto) (0.0-7.0) % Baso % (Auto) (0.0-1.5) % Neut # (Auto) (1.4-5.7) K/uL Lymph # (Auto) (0.6-2.4) K/uL [place] # (Auto) (0.0-0.8) K/uL Eos # (Auto) (0.0-0.7) K/uL Baso # (Auto) (0.0-0.1) K/uL Nucleated RBC % /100WBC Nucleated RBCs # K/uL INR Sodium (136-148) mmol/L Potassium (3.5-5.1) mmol/L Chloride (98-107) mmol/L Carbon Dioxide (21.0-32.0) mmol/L BUN (7.0-18.0) mg/dL Creatinine (0.8-1.3) mg/dL Est Cr Clr Drug Dosing mL/min Estimated GFR (MDRD) ml/min Glucose (74-106) mg/dL Lactic Acid (0.4-2.0) mmol/L Calcium (8.5-10.1) mg/dL Magnesium (1.8-2.4) mg/dL Total Bilirubin (0.2-1.0) mg/dL AST (15-37) IU/L ALT (14-63) IU/L Alkaline Phosphatase (46-116) U/L Ammonia 84 H (19-54) ug/dL Creatine Kinase (26-308) U/L C-Reactive Protein 6.00 H (0.00-0.90) mg/dL Total Protein (6.4-8.2) g/dL Albumin (3.4-5.0) g/dL Globulin (2.6-4.0) g/dL Albumin/Globulin Ratio (0.9-1.6) Fluid Type PER Fluid Color YELLOW Fluid Appearance CLEAR Fluid WBC 158 /uL Fluid RBC < 3000 /uL Fluid Mononuclear Cell 81 % Fl Polymorphonucl Cell 19 % Fluid Glucose 106 mg/dL Fluid Total Protein 1.6 g/dL Salicylates (0-20) mg/dL Acetaminophen ug/mL Ethyl Alcohol mg/dL Hep Bs Antigen Index 0.2 (<1.0) INDEX Hep Bs Antibody Index < 3.1 mIU/mL Hep C Ab Index (LAURA) 0.23 (<0.8) INDEX SARS-CoV-2 RNA (JESÚS) (NEGATIVE) Result Diagrams: 03/16/21 23:25 03/16/21 23:25 Sepsis Event Note - Evaluation Sepsis Screening Result: No Definite Risk - Focused Exam Vital Signs: Vital Signs Temp Pulse Resp BP Pulse Ox Pulse Ox 03/17/21 06:49 98.2 F 96 18 125/68 95 03/17/21 06:00 94 L 94 L 03/17/21 04:27 101 H 16 109/61 94 L 03/17/21 02:37 104 H 18 126/61 95 03/17/21 00:28 104 H 19 127/72 96 03/16/21 22:47 98.2 F 120 H 20 135/79 95 - Problem List (1) Ascites SNOMED Code(s): 021558270 ICD Code: R18.8 - OTHER ASCITES Status: Acute Current Visit: Yes (2) Alcohol abuse SNOMED Code(s): 22771182 ICD Code: F10.10 - ALCOHOL ABUSE, UNCOMPLICATED Status: Acute Current Visit: Yes (3) Alcoholic hepatitis SNOMED Code(s): 824365321 ICD Code: K70.10 - ALCOHOLIC HEPATITIS WITHOUT ASCITES Status: Acute Current Visit: Yes (4) Liver failure, acute SNOMED Code(s): 305613133 ICD Code: K72.00 - ACUTE AND SUBACUTE HEPATIC FAILURE WITHOUT COMA Status: Acute Current Visit: Yes Problem List Initiated/Reviewed/Updated: Yes Orders Last 24hrs: Active Orders 24 hr Category Date Time Status Admission Status [Patient Status] [ADT] Stat ADT 03/17/21 05:16 Active Ambulate [RC] ASDIRECTED Care 03/17/21 05:20 Active Antiembolic Devices [RC] PER UNIT ROUTINE Care 03/17/21 05:21 Active CIWAA Assessment [RC] Q4H Care 03/17/21 05:31 Active Oxygen Therapy [RC] PRN Care 03/17/21 05:20 Active Pulse Oximetry [RC] PRN Care 03/17/21 05:20 Active RT Aerosol Therapy [RC] ASDIRECTED Care 03/17/21 05:21 Active VTE/DVT Education [RC] PER UNIT ROUTINE Care 03/17/21 05:20 Active Vital Signs [RC] Q4H Care 03/17/21 05:20 Active CULTURE BLOOD [BC] Stat Lab 03/17/21 04:33 Received CULTURE BLOOD [BC] Stat Lab 03/17/21 05:18 Received HEPATITIS PANEL (4) [REF] Stat Lab 03/17/21 03:55 Received MISCELLANEOUS CULT [MREF] Stat Lab 03/17/21 02:15 Received UA W/MAHOGANY RFLX IF INDICATED [URIN] Stat Lab 03/17/21 03:44 Ordered Albuterol/Ipratropium [DuoNeb 3.0-0.5 MG/3 ML] Med 03/17/21 05:20 Active 3 ml NEB Q4HRRT PRN LORazepam [Ativan] Med 03/17/21 05:31 Active See Protocol IVPUSH Q4H PRN Lactated Ringers [Ringers, Lactated] 1,000 ml Med 03/17/21 05:30 Active IV ASDIRECTED Ondansetron [Zofran] Med 03/17/21 05:20 Active 4 mg IVPUSH Q4H PRN Pantoprazole [ProTONIX IV] 40 mg Med 03/18/21 09:00 Active Sodium Chloride 0.9% [Normal Saline] 10 ml IV Q24H Piperacillin/Tazobactam [Piperacil-Tazobact] 3.375 gm Med 03/17/21 13:00 Active Sodium Chloride 0.9% [Normal Saline AdvBag] 50 ml IV Q8H Sodium Chloride 0.9% [Normal Saline] 1,000 ml Med 03/16/21 23:30 Active IV ASDIRECTED Spironolactone [Aldactone] Med 03/17/21 09:00 Active 25 mg PO DAILY Blood Culture x2 Reflex Set [OM.PC] Stat Oth 03/17/21 04:33 Ordered Sequential Compression Device [OM.PC] Per Unit Routine Oth 03/17/21 05:20 Ordered Resuscitation Status Routine Resus Stat 03/17/21 05:20 Ordered Medication Orders Albuterol/Ipratropium (Albuterol/Ipratropium 3.0-0.5 Mg/3 Ml Neb Soln) 3 ml NEB Q4HRRT PRN PRN Reason: Shortness Of Breath/wheezing Sodium Chloride (Normal Saline) 1,000 mls @ 999 mls/hr IV ASDIRECTED GEORGE Last Admin: 03/17/21 00:28 Dose: 999 mls/hr Documented by: ROSI Lactated Ringer's (Ringers, Lactated) 1,000 mls @ 125 mls/hr IV ASDIRECTED GEORGE Last Admin: 03/17/21 07:54 Dose: 125 mls/hr Documented by: DEYSI Pantoprazole Sodium 40 mg/ (Sodium Chloride) 10 mls @ 300 mls/hr IV Q24H GEORGE Piperacillin Sod/Tazobactam (Sod 3.375 gm/ Sodium Chloride) 50 mls @ 100 mls/hr IV Q8H GEORGE Lorazepam (Lorazepam 2 Mg/Ml Sdv) 0 mg IVPUSH Q4H PRN; Protocol PRN Reason: Withdrawal Symptoms Ondansetron HCl (Ondansetron 4 Mg/2 Ml Sdv) 4 mg IVPUSH Q4H PRN PRN Reason: Nausea/Vomiting Spironolactone (Spironolactone 25 Mg Tab) 25 mg PO DAILY [facility] Assessment/Plan Comment:: Alcoholic Cirrhosis, Ascites: CIWA protocol for Ativan. Lactated Ringer's at 125 ml/h. Spironolactone 25 mg. IV Zosyn. Zofran. Protonix. Replete electrolytes as needed. Autoimmune hepatitis panel. Infectious hepatitis panel. <Chel Shoemaker - Last Filed: 03/22/21 16:41> H&P History of Present Illness - General Admit Problem/Dx: Admission Diagnosis/Problem Admission Diagnosis/Problem Acute liver failure Exam - Vital Signs Vital Signs: Last Vital Signs Temp 36.4 C 03/22/21 12:00 Pulse 100 03/22/21 12:00 Resp 17 03/22/21 12:00 BP 110/80 03/22/21 12:00 Pulse Ox 93 L 03/22/21 12:00 - Patient Data Lab Results Last 24 hrs: Laboratory Results - last 24 hr 03/18/21 03/18/21 03/18/21 Range/Units 05:50 05:50 05:50 WBC (4.0-11.0) K/uL RBC (4.50-5.90) M/uL Hgb (13.0-17.0) g/dL Hct (38.0-50.0) % MCV (80.0-98.0) fL MCH (27.0-32.0) pg MCHC (31.0-37.0) g/dL RDW Std Deviation (28.0-62.0) fl RDW Coeff of Briseida (11.0-15.0) % Plt Count (150-400) K/uL MPV (7.40-12.00) fL Neut % (Auto) (48.0-80.0) % Lymph % (Auto) (16.0-40.0) % [place] % (Auto) (0.0-15.0) % Eos % (Auto) (0.0-7.0) % Baso % (Auto) (0.0-1.5) % Neut # (Auto) (1.4-5.7) K/uL Lymph # (Auto) (0.6-2.4) K/uL [place] # (Auto) (0.0-0.8) K/uL Eos # (Auto) (0.0-0.7) K/uL Baso # (Auto) (0.0-0.1) K/uL Nucleated RBC % /100WBC Nucleated RBCs # K/uL Sodium (136-148) mmol/L Potassium (3.5-5.1) mmol/L Chloride (98-107) mmol/L Carbon Dioxide (21.0-32.0) mmol/L BUN (7.0-18.0) mg/dL Creatinine (0.8-1.3) mg/dL Est Cr Clr Drug Dosing mL/min Estimated GFR (MDRD) ml/min Glucose (74-106) mg/dL Calcium (8.5-10.1) mg/dL Total Bilirubin (0.2-1.0) mg/dL AST (15-37) IU/L ALT (14-63) IU/L Alkaline Phosphatase (46-116) U/L Total Protein (6.4-8.2) g/dL Albumin (3.4-5.0) g/dL Globulin (2.6-4.0) g/dL Albumin/Globulin Ratio (0.9-1.6) Fluid Type Fluid Color Fluid Appearance Fluid WBC /uL Fluid RBC /uL Fluid Mononuclear Cell % Fl Polymorphonucl Cell % Fluid Glucose mg/dL Fluid Total Protein g/dL Fluid Albumin g/dL Fluid LDH U/L Fluid Amylase U/L Fluid Triglycerides mg/dL PETAR Screen Negative (Negative) Double Strand DNA Ab 5 (0-9) IU/mL Anti-Smooth Muscle Ab 18 (0-19) Units 03/22/21 03/22/21 03/22/21 Range/Units 05:30 05:30 14:05 WBC 7.25 (4.0-11.0) K/uL RBC 3.31 L (4.50-5.90) M/uL Hgb 11.8 L (13.0-17.0) g/dL Hct 35.5 L (38.0-50.0) % MCV 107.3 H (80.0-98.0) fL MCH 35.6 H (27.0-32.0) pg MCHC 33.2 (31.0-37.0) g/dL RDW Std Deviation 62.9 H (28.0-62.0) fl RDW Coeff of Briseida 16 H (11.0-15.0) % Plt Count 122 L (150-400) K/uL MPV 10.80 (7.40-12.00) fL Neut % (Auto) 60.3 (48.0-80.0) % Lymph % (Auto) 24.8 (16.0-40.0) % [place] % (Auto) 12.7 (0.0-15.0) % Eos % (Auto) 1.2 (0.0-7.0) % Baso % (Auto) 1.0 (0.0-1.5) % Neut # (Auto) 4.4 (1.4-5.7) K/uL Lymph # (Auto) 1.8 (0.6-2.4) K/uL [place] # (Auto) 0.9 H (0.0-0.8) K/uL Eos # (Auto) 0.1 (0.0-0.7) K/uL Baso # (Auto) 0.1 (0.0-0.1) K/uL Nucleated RBC % 0.0 /100WBC Nucleated RBCs # 0 K/uL Sodium 136 (136-148) mmol/L Potassium 4.5 (3.5-5.1) mmol/L Chloride 99 (98-107) mmol/L Carbon Dioxide 33.3 H (21.0-32.0) mmol/L BUN 5 L (7.0-18.0) mg/dL Creatinine 1.1 (0.8-1.3) mg/dL Est Cr Clr Drug Dosing 110.69 mL/min Estimated GFR (MDRD) > 60.0 ml/min Glucose 97 (74-106) mg/dL Calcium 7.6 L (8.5-10.1) mg/dL Total Bilirubin 4.7 H (0.2-1.0) mg/dL AST 70 H (15-37) IU/L ALT 20 (14-63) IU/L Alkaline Phosphatase 83 (46-116) U/L Total Protein 8.0 (6.4-8.2) g/dL Albumin 1.9 L (3.4-5.0) g/dL Globulin 6.1 H (2.6-4.0) g/dL Albumin/Globulin Ratio 0.3 L (0.9-1.6) Fluid Type PER Fluid Color YELLOW Fluid Appearance CLEAR Fluid WBC 158 /uL Fluid RBC 0 /uL Fluid Mononuclear Cell 82 % Fl Polymorphonucl Cell 18 % Fluid Glucose 109 mg/dL Fluid Total Protein 1.6 g/dL Fluid Albumin 0.4 g/dL Fluid LDH 38 U/L Fluid Amylase 18 U/L Fluid Triglycerides 21 mg/dL PETAR Screen (Negative) Double Strand DNA Ab (0-9) IU/mL Anti-Smooth Muscle Ab (0-19) Units Result Diagrams: 03/22/21 05:30 03/22/21 05:30 [place] Results Last 24 hrs: Microbiology 03/17/21 02:15 Miscellaneous Reference Culture - Final Peritoneal Fluid Gram Stain - Final 03/17/21 05:18 Aerobic Blood Culture - Final Blood - Venous - Lab Draw NO GROWTH AFTER 5 DAYS Anaerobic Blood Culture - Final NO GROWTH AFTER 5 DAYS 03/16/21 23:35 Aerobic Blood Culture - Final Blood - Venous NO GROWTH AFTER 5 DAYS Anaerobic Blood Culture - Final NO GROWTH AFTER 5 DAYS Sepsis Event Note - Focused Exam Vital Signs: Vital Signs Temp Pulse Resp BP Pulse Ox Pulse Ox 03/22/21 12:00 36.4 C 100 17 110/80 93 L 03/22/21 08:00 36.2 C 97 15 120/66 93 L 03/22/21 06:00 94 L 94 L Orders Last 24hrs: Active Orders 24 hr Category Date Time Status Soft Diet [DIET] Diet 03/22/21 Lunch Active BODY FLUID, TOTAL BILIRUBIN Routine Lab 03/22/21 14:32 Ordered CBC WITH AUTO DIFF [HEME] AM Lab 03/23/21 05:11 Ordered CBC WITH AUTO DIFF [HEME] AM Lab 03/24/21 05:11 Ordered CMP [COMPREHENSIVE METABOLIC PN,CMP] [CHEM] AM Lab 03/23/21 05:11 Ordered CMP [COMPREHENSIVE METABOLIC PN,CMP] [CHEM] AM Lab 03/24/21 05:11 Ordered CULTURE AFB AND SMEAR [MREF] Routine Lab 03/22/21 14:22 Ordered MISCELLANEOUS CULT [MREF] Routine Lab 03/22/21 14:34 Ordered Medication Orders Acetaminophen (Acetaminophen 325 Mg Tab) 325 mg PO Q6H PRN PRN Reason: Pain Last Admin: 03/18/21 04:01 Dose: 325 mg Documented by: DEYSI Albuterol/Ipratropium (Albuterol/Ipratropium 3.0-0.5 Mg/3 Ml Neb Soln) 3 ml NEB Q4HRRT PRN PRN Reason: Shortness Of Breath/wheezing Furosemide (Furosemide 40 Mg/4 Ml Vial) 40 mg IVPUSH BID [facility] Last Admin: 03/22/21 09:03 Dose: 40 mg Documented by: SDAIE Cosigned by: KARYN Admin: 03/21/21 20:49 Dose: 40 mg Documented by: Admin: 03/21/21 09:34 Dose: 40 mg Documented by: Admin: 03/20/21 20:09 Dose: 40 mg Documented by: BRENDA Pantoprazole Sodium 40 mg/ (Sodium Chloride) 10 mls @ 300 mls/hr IV DAILY [facility] Last Admin: 03/22/21 09:04 Dose: 300 mls/hr Documented by: SADIE Cosigned by: KARYN Infusion: 03/21/21 09:35 Dose: 300 mls/hr Documented by: SADIE Jolleyigned by: KARYN Admin: 03/21/21 09:33 Dose: 300 mls/hr Documented by: Infusion: 03/20/21 08:49 Dose: 300 mls/hr Documented by: Admin: 03/20/21 08:47 Dose: 300 mls/hr Documented by: Infusion: 03/19/21 09:03 Dose: 300 mls/hr Documented by: Admin: 03/19/21 09:01 Dose: 300 mls/hr Documented by: Infusion: 03/18/21 09:59 Dose: 300 mls/hr Documented by: Admin: 03/18/21 09:57 Dose: 300 mls/hr Documented by: Infusion: 03/17/21 10:02 Dose: 300 mls/hr Documented by: Admin: 03/17/21 10:00 Dose: 300 mls/hr Documented by: [email or web address] Cosigned by: [id number] Piperacillin Sod/Tazobactam (Sod 3.375 gm/ Sodium Chloride) 50 mls @ 100 mls/hr IV Q8H [facility] Admin: 03/22/21 12:23 Dose: 100 mls/hr Documented by: Infusion: 03/22/21 04:41 Dose: 100 mls/hr Documented by: Admin: 03/22/21 04:11 Dose: 100 mls/hr Documented by: Infusion: 03/21/21 21:20 Dose: 100 mls/hr Documented by: Admin: 03/21/21 20:50 Dose: 100 mls/hr Documented by: Infusion: 03/21/21 13:30 Dose: 100 mls/hr Documented by: Admin: 03/21/21 13:00 Dose: 100 mls/hr Documented by: Infusion: 03/21/21 05:00 Dose: 100 mls/hr Documented by: Admin: 03/21/21 04:30 Dose: 100 mls/hr Documented by: Infusion: 03/20/21 20:33 Dose: 100 mls/hr Documented by: Admin: 03/20/21 20:03 Dose: 100 mls/hr Documented by: Infusion: 03/20/21 13:17 Dose: 100 mls/hr Documented by: Admin: 03/20/21 12:47 Dose: 100 mls/hr Documented by: Infusion: 03/20/21 05:34 Dose: 100 mls/hr Documented by: Admin: 03/20/21 05:04 Dose: 100 mls/hr Documented by: Infusion: 03/19/21 21:53 Dose: 100 mls/hr Documented by: Admin: 03/19/21 21:23 Dose: 100 mls/hr Documented by: Infusion: 03/19/21 12:40 Dose: 100 mls/hr Documented by: Admin: 03/19/21 12:10 Dose: 100 mls/hr Documented by: Infusion: 03/19/21 05:50 Dose: 100 mls/hr Documented by: Admin: 03/19/21 05:20 Dose: 100 mls/hr Documented by: Infusion: 03/18/21 21:31 Dose: 100 mls/hr Documented by: Admin: 03/18/21 21:01 Dose: 100 mls/hr Documented by: Infusion: 03/18/21 13:46 Dose: 100 mls/hr Documented by: Admin: 03/18/21 13:16 Dose: 100 mls/hr Documented by: Infusion: 03/18/21 04:32 Dose: 100 mls/hr Documented by: Admin: 03/18/21 04:02 Dose: 100 mls/hr Documented by: Infusion: 03/17/21 20:47 Dose: 100 mls/hr Documented by: Admin: 03/17/21 20:17 Dose: 100 mls/hr Documented by: Infusion: 03/17/21 14:21 Dose: 100 mls/hr Documented by: Admin: 03/17/21 13:51 Dose: 100 mls/hr Documented by: [email or web address] Lactulose (Lactulose Soln 10 Gm/15 Ml 15 Ml Ud Cup) 10 gm PO BID GEORGE Last Admin: 03/22/21 12:43 Dose: Not Given Documented by: Admin: 03/21/21 20:49 Dose: 10 gm Documented by: Admin: 03/21/21 09:34 Dose: 10 gm Documented by: Admin: 03/20/21 20:01 Dose: 10 gm Documented by: Admin: 03/20/21 08:48 Dose: 10 gm Documented by: Admin: 03/19/21 21:24 Dose: 10 gm Documented by: Admin: 03/19/21 10:51 Dose: 10 gm Documented by: YADY Lorazepam (Lorazepam 2 Mg/Ml Sdv) 0 mg IVPUSH Q4H PRN; Protocol PRN Reason: Withdrawal Symptoms Ondansetron HCl (Ondansetron 4 Mg/2 Ml Sdv) 4 mg IVPUSH Q4H PRN PRN Reason: Nausea/Vomiting Oxycodone HCl (Oxycodone 5 Mg Tab) 5 mg PO Q6H PRN PRN Reason: Pain Last Admin: 03/22/21 15:14 Dose: 5 mg Documented by: Admin: 03/22/21 09:02 Dose: 5 mg Documented by: SADIE Cosigned by: KARYN Admin: 03/21/21 23:25 Dose: 5 mg Documented by: Admin: 03/21/21 17:15 Dose: 5 mg Documented by: Admin: 03/21/21 11:06 Dose: 5 mg Documented by: Admin: 03/21/21 04:28 Dose: 5 mg Documented by: Admin: 03/20/21 22:16 Dose: 5 mg Documented by: Admin: 03/20/21 16:02 Dose: 5 mg Documented by: Admin: 03/20/21 08:48 Dose: 5 mg Documented by: Admin: 03/19/21 23:46 Dose: 5 mg Documented by: Admin: 03/19/21 17:26 Dose: 5 mg Documented by: Admin: 03/19/21 08:28 Dose: 5 mg Documented by: Admin: 03/18/21 21:02 Dose: 5 mg Documented by: [email or web address] Potassium Chloride (Potassium Chloride 20 Meq Tab.Er) 40 meq PO BID GEORGE Last Admin: 03/22/21 12:43 Dose: Not Given Documented by: Admin: 03/21/21 20:49 Dose: 40 meq Documented by: Admin: 03/21/21 09:34 Dose: 40 meq Documented by: Admin: 03/20/21 20:01 Dose: 40 meq Documented by: Admin: 03/20/21 08:48 Dose: 40 meq Documented by: Admin: 03/19/21 21:24 Dose: 40 meq Documented by: Admin: 03/19/21 10:51 Dose: 40 meq Documented by: YADY Spironolactone (Spironolactone 25 Mg Tab) 25 mg PO DAILY [facility] Last Admin: 03/22/21 09:02 Dose: 25 mg Documented by: SADIE Cosigned by: KARYN Admin: 03/21/21 09:34 Dose: 25 mg Documented by: Admin: 03/20/21 08:48 Dose: 25 mg Documented by: Admin: 03/19/21 09:01 Dose: 25 mg Documented by: Admin: 03/18/21 09:57 Dose: 25 mg Documented by: Admin: 03/17/21 09:57 Dose: 25 mg Documented by: VINCENZO Cosigned by: DAVID Thiamine HCl (Thiamine 100 Mg Tab) 100 mg PO BEDTIME [facility] Admin: 03/21/21 20:50 Dose: 100 mg Documented by: Admin: 03/20/21 20:08 Dose: 100 mg Documented by: Admin: 03/19/21 21:24 Dose: 100 mg Documented by: BRENDA Assessment/Plan Comment:: I performed a history and physical exam of the patient and discussed management with resident. I have reviewed the residents note and agree with documented findings and plan unless otherwise specified in my note.
[2021-03-17] MEDS: Spironolactone 25 MG Tab PO SCH (09:57)
[2021-03-17] MEDS: Pantoprazole 40 MG in Sodium Chloride 0.9% 10 ML IV SCH (10:00)
[2021-03-17] MEDS: Piperacillin/Tazobactam 3.375 GM in Sodium Chloride 0.9% 50 ML IV SCH ×2 (13:51→20:17)
[2021-03-17] MEDS ORDERED: Magnesium Sulfate/Water 2 GM in Premix Bag 1 BAG IV ONE (20:11)
[2021-03-18] MEDS ORDERED: Acetaminophen 325 MG Tab PO PRN (03:50)
[2021-03-18] MEDS: Piperacillin/Tazobactam 3.375 GM in Sodium Chloride 0.9% 50 ML IV SCH ×3 (04:02→21:01)
[2021-03-18 06:43] LABS: BLOOD UREA NITROGEN,BUN 6 mg/dL (7.0-18.0); CARBON DIOXIDE,CO2 30.7 mmol/L (21.0-32.0); CHLORIDE,CL 96 mmol/L (98-107); GLUCOSE RANDOM 107 mg/dL (74-106); POTASSIUM,K 2.7 mmol/L (3.5-5.1); SODIUM,NA 135 mmol/L (136-148)
--- NOTE | 2021-03-18 07:04 | PCM.PN ---
- General Info Date of Service: 03/18/21 Admission Dx/Problem (Free Text): Admission Diagnosis/Problem Admission Diagnosis/Problem Acute liver failure Subjective Update: Patient seen at bedside this morning. Complains of abdominal discomfort from the ascites. Denies tenderness. Patient did not sleep well last night. Denies diaphoresis, tremors, hallucinations. Patient has an appetite and ordered breakfast. Patient denies fever, chills, nausea, vomiting, diarrhea, chest pain, palpitations, dizziness, confusion, headaches, or difficulty ambulating. - Review of Systems General: Reports: Weakness, Fatigue. Denies: Fever HEENT: Denies: Headaches, Visual Changes Pulmonary: Denies: Shortness of Breath, Pleuritic Chest Pain, Cough, Sputum, Hemoptysis Cardiovascular: Reports: Edema. Denies: Chest Pain, Palpitations Gastrointestinal: Reports: Abdominal Pain. Denies: Constipation, Decreased Appetite, Diarrhea, Hematochezia, Melena, Nausea, Vomiting Genitourinary: Denies: Dysuria Musculoskeletal: Denies: Leg Pain Skin: Reports: Jaundice Neurological: Reports: Weakness. Denies: Confusion, Dizziness, Seizure, Tingl ing, Tremors - Patient Data Vitals - Most Recent: Last Vital Signs Temp 97.7 F 03/18/21 04:00 Pulse 83 03/18/21 04:00 Resp 18 03/18/21 04:00 BP 123/64 03/18/21 04:00 Pulse Ox 92 L 03/18/21 06:00 Weight - Most Recent: 228 lb I&O - Last 24 Hours: Intake & Output 03/17/21 03/18/21 03/18/21 22:59 06:59 14:59 Intake Total 1204 680 Output Total 450 750 Balance 754 -70 Lab Results Last 24 Hours: Laboratory Results - last 24 hr 03/17/21 03/18/21 03/18/21 Range/Units 12:40 05:50 05:50 WBC 7.44 (4.0-11.0) K/uL RBC 3.09 L (4.50-5.90) M/uL Hgb 11.1 L (13.0-17.0) g/dL Hct 31.8 L (38.0-50.0) % MCV 102.9 H (80.0-98.0) fL MCH 35.9 H (27.0-32.0) pg MCHC 34.9 (31.0-37.0) g/dL RDW Std Deviation 59.2 (28.0-62.0) fl RDW Coeff of Briseida 16 H (11.0-15.0) % Plt Count 147 L (150-400) K/uL MPV 9.90 (7.40-12.00) fL Neut % (Auto) 63.0 (48.0-80.0) % Lymph % (Auto) 24.2 (16.0-40.0) % Beckham % (Auto) 10.8 (0.0-15.0) % Eos % (Auto) 1.3 (0.0-7.0) % Baso % (Auto) 0.7 (0.0-1.5) % Neut # (Auto) 4.7 (1.4-5.7) K/uL Lymph # (Auto) 1.8 (0.6-2.4) K/uL Beckham # (Auto) 0.8 (0.0-0.8) K/uL Eos # (Auto) 0.1 (0.0-0.7) K/uL Baso # (Auto) 0.1 (0.0-0.1) K/uL Nucleated RBC % 0.0 /100WBC Nucleated RBCs # 0 K/uL INR Sodium 135 L (136-148) mmol/L Potassium 2.7 L (3.5-5.1) mmol/L Chloride 96 L (98-107) mmol/L Carbon Dioxide 30.7 (21.0-32.0) mmol/L BUN 6 L (7.0-18.0) mg/dL Creatinine 1.0 (0.8-1.3) mg/dL Est Cr Clr Drug Dosing 121.76 mL/min Estimated GFR (MDRD) > 60.0 ml/min Glucose 107 H (74-106) mg/dL Calcium 7.4 L (8.5-10.1) mg/dL Phosphorus 2.6 (2.6-4.7) mg/dL Magnesium 1.7 L (1.8-2.4) mg/dL Total Bilirubin 7.4 H (0.2-1.0) mg/dL AST 62 H (15-37) IU/L ALT 18 (14-63) IU/L Alkaline Phosphatase 84 (46-116) U/L Ammonia (19-54) ug/dL Total Protein 7.3 (6.4-8.2) g/dL Albumin 1.8 L (3.4-5.0) g/dL Globulin 5.5 H (2.6-4.0) g/dL Albumin/Globulin Ratio 0.3 L (0.9-1.6) Urine Color DARK YELLOW Urine Appearance CLEAR Urine pH 5.5 (5.0-8.0) Ur Specific [place] 1.010 (1.001-1.035) Urine Protein NEGATIVE (NEGATIVE) mg/dL Urine Glucose (UA) NEGATIVE (NEGATIVE) mg/dL Urine Ketones 15 H (NEGATIVE) mg/dL Urine Occult Blood NEGATIVE (NEGATIVE) Urine Nitrite NEGATIVE (NEGATIVE) Urine Bilirubin MODERATE H (NEGATIVE) Urine Ictotest POSITIVE Urine Urobilinogen >=8.0 H (<2.0) EU/dL Ur Leukocyte Esterase TRACE H (NEGATIVE) Urine RBC NONE SEEN (0-2/HPF) Urine WBC 0-5 (0-5/HPF) Ur Epithelial Cells RARE (NONE-FEW) Urine Bacteria NOT SEEN (NEGATIVE) 03/18/21 03/18/21 Range/Units 05:50 05:50 WBC (4.0-11.0) K/uL RBC (4.50-5.90) M/uL Hgb (13.0-17.0) g/dL Hct (38.0-50.0) % MCV (80.0-98.0) fL MCH (27.0-32.0) pg MCHC (31.0-37.0) g/dL RDW Std Deviation (28.0-62.0) fl RDW Coeff of Briseida (11.0-15.0) % Plt Count (150-400) K/uL MPV (7.40-12.00) fL Neut % (Auto) (48.0-80.0) % Lymph % (Auto) (16.0-40.0) % Beckham % (Auto) (0.0-15.0) % Eos % (Auto) (0.0-7.0) % Baso % (Auto) (0.0-1.5) % Neut # (Auto) (1.4-5.7) K/uL Lymph # (Auto) (0.6-2.4) K/uL Beckham # (Auto) (0.0-0.8) K/uL Eos # (Auto) (0.0-0.7) K/uL Baso # (Auto) (0.0-0.1) K/uL Nucleated RBC % /100WBC Nucleated RBCs # K/uL INR 1.75 Sodium (136-148) mmol/L Potassium (3.5-5.1) mmol/L Chloride (98-107) mmol/L Carbon Dioxide (21.0-32.0) mmol/L BUN (7.0-18.0) mg/dL Creatinine (0.8-1.3) mg/dL Est Cr Clr Drug Dosing mL/min Estimated GFR (MDRD) ml/min Glucose (74-106) mg/dL Calcium (8.5-10.1) mg/dL Phosphorus (2.6-4.7) mg/dL Magnesium (1.8-2.4) mg/dL Total Bilirubin (0.2-1.0) mg/dL AST (15-37) IU/L ALT (14-63) IU/L Alkaline Phosphatase (46-116) U/L Ammonia 68 H (19-54) ug/dL Total Protein (6.4-8.2) g/dL Albumin (3.4-5.0) g/dL Globulin (2.6-4.0) g/dL Albumin/Globulin Ratio (0.9-1.6) Urine Color Urine Appearance Urine pH (5.0-8.0) Ur Specific [place] (1.001-1.035) Urine Protein (NEGATIVE) mg/dL Urine Glucose (UA) (NEGATIVE) mg/dL Urine Ketones (NEGATIVE) mg/dL Urine Occult Blood (NEGATIVE) Urine Nitrite (NEGATIVE) Urine Bilirubin (NEGATIVE) Urine Ictotest Urine Urobilinogen (<2.0) EU/dL Ur Leukocyte Esterase (NEGATIVE) Urine RBC (0-2/HPF) Urine WBC (0-5/HPF) Ur Epithelial Cells (NONE-FEW) Urine Bacteria (NEGATIVE) [place] Results Last 24 Hours: Microbiology 03/17/21 05:18 Aerobic Blood Culture - Preliminary Blood - Venous - Lab Draw NO GROWTH AFTER 1 DAY Anaerobic Blood Culture - Preliminary NO GROWTH AFTER 1 DAY 03/16/21 23:35 Aerobic Blood Culture - Preliminary Blood - Venous NO GROWTH AFTER 1 DAY Anaerobic Blood Culture - Preliminary NO GROWTH AFTER 1 DAY Med Orders - Current: Current Medications Acetaminophen (Acetaminophen 325 Mg Tab) 325 mg PO Q6H PRN PRN Reason: Pain Last Admin: 03/18/21 04:01 Dose: 325 mg Documented by: Albuterol/Ipratropium (Albuterol/Ipratropium 3.0-0.5 Mg/3 Ml Neb Soln) 3 ml NEB Q4HRRT PRN PRN Reason: Shortness Of Breath/wheezing Sodium Chloride (Normal Saline) 1,000 mls @ 999 mls/hr IV ASDIRECTED [facility] Last Admin: 03/17/21 00:28 Dose: 999 mls/hr Documented by: Pantoprazole Sodium 40 mg/ (Sodium Chloride) 10 mls @ 300 mls/hr IV DAILY [facility] Last Admin: 03/17/21 10:00 Dose: 300 mls/hr Documented by: Piperacillin Sod/Tazobactam (Sod 3.375 gm/ Sodium Chloride) 50 mls @ 100 mls/hr IV Q8H [facility] Last Admin: 03/18/21 04:02 Dose: 100 mls/hr Documented by: Lorazepam (Lorazepam 2 Mg/Ml Sdv) 0 mg IVPUSH Q4H PRN; Protocol PRN Reason: Withdrawal Symptoms Ondansetron HCl (Ondansetron 4 Mg/2 Ml Sdv) 4 mg IVPUSH Q4H PRN PRN Reason: Nausea/Vomiting Spironolactone (Spironolactone 25 Mg Tab) 25 mg PO DAILY [facility] Last Admin: 03/17/21 09:57 Dose: 25 mg Documented by: Discontinued Medications Piperacillin Sod/Tazobactam (Sod 4.5 gm/ Sodium Chloride) 100 mls @ 100 mls/hr IV ONETIME ONE Stop: 03/17/21 05:33 Last Admin: 03/17/21 04:42 Dose: 100 mls/hr Documented by: Pantoprazole Sodium 80 mg/ (Sodium Chloride) 20 mls @ 420 mls/hr IVPUSH ONETIME ONE Stop: 03/17/21 05:17 Last Admin: 03/17/21 06:26 Dose: 420 mls/hr Documented by: Lactated Ringer's (Ringers, Lactated) 1,000 mls @ 125 mls/hr IV ASDIRECTED [facility] Stop: 03/17/21 23:00 Last Admin: 03/17/21 17:25 Dose: 125 mls/hr Documented by: Magnesium Sulfate 2 gm/ Premix 50 mls @ 200 mls/hr IV ONETIME ONE Stop: 03/17/21 20:25 Last Admin: 03/17/21 20:17 Dose: 200 mls/hr Documented by: Iopamidol (Iopamidol 755 Mg/Ml 500 Ml Multipack Bottle) 100 ml IVPUSH ONETIME [facility] Stop: 03/17/21 00:23 Last Admin: 03/17/21 00:23 Dose: 100 ml Documented by: Phytonadione (Phytonadione 5 Mg Tab) 5 mg PO ONETIME ONE Stop: 03/17/21 05:16 Last Admin: 03/17/21 07:34 Dose: Not Given Documented by: Phytonadione (Phytonadione 10 Mg/1 Ml Amp) 5 mg PO ONETIME ONE Stop: 03/17/21 07:16 Last Admin: 03/17/21 07:32 Dose: 5 mg Documented by: Phytonadione (Phytonadione 10 Mg/1 Ml Amp) 5 mg PO ONETIME ONE Stop: 03/18/21 09:01 - Exam General: Alert, Oriented, Cooperative, No Acute Distress HEENT: Scleral Icterus Neck: Supple Lungs: Decreased Breath Sounds. No: Crackles Cardiovascular: Regular Rate, Regular Rhythm GI/Abdominal Exam: Distended. No: Guarding, Rigid, Rebound, Tender Extremities: Normal Inspection. No: Ramirez's Sign, Leg Pain Peripheral Pulses: 2+: Dorsalis Pedis (L), Dorsalis Pedis (R) Neurological: No New Focal Deficit - Patient Data Lab Results Last 24 hrs: Laboratory Results - last 24 hr 03/17/21 03/18/21 03/18/21 Range/Units 12:40 05:50 05:50 WBC 7.44 (4.0-11.0) K/uL RBC 3.09 L (4.50-5.90) M/uL Hgb 11.1 L (13.0-17.0) g/dL Hct 31.8 L (38.0-50.0) % MCV 102.9 H (80.0-98.0) fL MCH 35.9 H (27.0-32.0) pg MCHC 34.9 (31.0-37.0) g/dL RDW Std Deviation 59.2 (28.0-62.0) fl RDW Coeff of Briseida 16 H (11.0-15.0) % Plt Count 147 L (150-400) K/uL MPV 9.90 (7.40-12.00) fL Neut % (Auto) 63.0 (48.0-80.0) % Lymph % (Auto) 24.2 (16.0-40.0) % Beckham % (Auto) 10.8 (0.0-15.0) % Eos % (Auto) 1.3 (0.0-7.0) % Baso % (Auto) 0.7 (0.0-1.5) % Neut # (Auto) 4.7 (1.4-5.7) K/uL Lymph # (Auto) 1.8 (0.6-2.4) K/uL Beckham # (Auto) 0.8 (0.0-0.8) K/uL Eos # (Auto) 0.1 (0.0-0.7) K/uL Baso # (Auto) 0.1 (0.0-0.1) K/uL Nucleated RBC % 0.0 /100WBC Nucleated RBCs # 0 K/uL INR Sodium 135 L (136-148) mmol/L Potassium 2.7 L (3.5-5.1) mmol/L Chloride 96 L (98-107) mmol/L Carbon Dioxide 30.7 (21.0-32.0) mmol/L BUN 6 L (7.0-18.0) mg/dL Creatinine 1.0 (0.8-1.3) mg/dL Est Cr Clr Drug Dosing 121.76 mL/min Estimated GFR (MDRD) > 60.0 ml/min Glucose 107 H (74-106) mg/dL Calcium 7.4 L (8.5-10.1) mg/dL Phosphorus 2.6 (2.6-4.7) mg/dL Magnesium 1.7 L (1.8-2.4) mg/dL Total Bilirubin 7.4 H (0.2-1.0) mg/dL AST 62 H (15-37) IU/L ALT 18 (14-63) IU/L Alkaline Phosphatase 84 (46-116) U/L Ammonia (19-54) ug/dL Total Protein 7.3 (6.4-8.2) g/dL Albumin 1.8 L (3.4-5.0) g/dL Globulin 5.5 H (2.6-4.0) g/dL Albumin/Globulin Ratio 0.3 L (0.9-1.6) Urine Color DARK YELLOW Urine Appearance CLEAR Urine pH 5.5 (5.0-8.0) Ur Specific [place] 1.010 (1.001-1.035) Urine Protein NEGATIVE (NEGATIVE) mg/dL Urine Glucose (UA) NEGATIVE (NEGATIVE) mg/dL Urine Ketones 15 H (NEGATIVE) mg/dL Urine Occult Blood NEGATIVE (NEGATIVE) Urine Nitrite NEGATIVE (NEGATIVE) Urine Bilirubin MODERATE H (NEGATIVE) Urine Ictotest POSITIVE Urine Urobilinogen >=8.0 H (<2.0) EU/dL Ur Leukocyte Esterase TRACE H (NEGATIVE) Urine RBC NONE SEEN (0-2/HPF) Urine WBC 0-5 (0-5/HPF) Ur Epithelial Cells RARE (NONE-FEW) Urine Bacteria NOT SEEN (NEGATIVE) 03/18/21 03/18/21 Range/Units 05:50 05:50 WBC (4.0-11.0) K/uL RBC (4.50-5.90) M/uL Hgb (13.0-17.0) g/dL Hct (38.0-50.0) % MCV (80.0-98.0) fL MCH (27.0-32.0) pg MCHC (31.0-37.0) g/dL RDW Std Deviation (28.0-62.0) fl RDW Coeff of Briseida (11.0-15.0) % Plt Count (150-400) K/uL MPV (7.40-12.00) fL Neut % (Auto) (48.0-80.0) % Lymph % (Auto) (16.0-40.0) % Beckham % (Auto) (0.0-15.0) % Eos % (Auto) (0.0-7.0) % Baso % (Auto) (0.0-1.5) % Neut # (Auto) (1.4-5.7) K/uL Lymph # (Auto) (0.6-2.4) K/uL [place] # (Auto) (0.0-0.8) K/uL Eos # (Auto) (0.0-0.7) K/uL Baso # (Auto) (0.0-0.1) K/uL Nucleated RBC % /100WBC Nucleated RBCs # K/uL INR 1.75 Sodium (136-148) mmol/L Potassium (3.5-5.1) mmol/L Chloride (98-107) mmol/L Carbon Dioxide (21.0-32.0) mmol/L BUN (7.0-18.0) mg/dL Creatinine (0.8-1.3) mg/dL Est Cr Clr Drug Dosing mL/min Estimated GFR (MDRD) ml/min Glucose (74-106) mg/dL Calcium (8.5-10.1) mg/dL Phosphorus (2.6-4.7) mg/dL Magnesium (1.8-2.4) mg/dL Total Bilirubin (0.2-1.0) mg/dL AST (15-37) IU/L ALT (14-63) IU/L Alkaline Phosphatase (46-116) U/L Ammonia 68 H (19-54) ug/dL Total Protein (6.4-8.2) g/dL Albumin (3.4-5.0) g/dL Globulin (2.6-4.0) g/dL Albumin/Globulin Ratio (0.9-1.6) Urine Color Urine Appearance Urine pH (5.0-8.0) Ur Specific [place] (1.001-1.035) Urine Protein (NEGATIVE) mg/dL Urine Glucose (UA) (NEGATIVE) mg/dL Urine Ketones (NEGATIVE) mg/dL Urine Occult Blood (NEGATIVE) Urine Nitrite (NEGATIVE) Urine Bilirubin (NEGATIVE) Urine Ictotest Urine Urobilinogen (<2.0) EU/dL Ur Leukocyte Esterase (NEGATIVE) Urine RBC (0-2/HPF) Urine WBC (0-5/HPF) Ur Epithelial Cells (NONE-FEW) Urine Bacteria (NEGATIVE) Result Diagrams: 03/18/21 05:50 03/18/21 05:50 [place]ilan Results Last 24 hrs: Microbiology 03/17/21 05:18 Aerobic Blood Culture - Preliminary Blood - Venous - Lab Draw NO GROWTH AFTER 1 DAY Anaerobic Blood Culture - Preliminary NO GROWTH AFTER 1 DAY 03/16/21 23:35 Aerobic Blood Culture - Preliminary Blood - Venous NO GROWTH AFTER 1 DAY Anaerobic Blood Culture - Preliminary NO GROWTH AFTER 1 DAY Sepsis Event Note - Evaluation Sepsis Screening Result: No Definite Risk - Focused Exam Vital Signs: Vital Signs Temp Pulse Resp BP Pulse Ox Pulse Ox 03/18/21 06:00 92 L 92 L 03/18/21 04:00 97.7 F 83 18 123/64 92 L 03/18/21 00:00 96.9 F 90 18 117/67 92 L 03/17/21 20:00 98.1 F 90 20 111/58 L 94 L - Problem List & Annotations (1) Ascites SNOMED Code(s): 232334362 Code(s): R18.8 - OTHER ASCITES Status: Acute Current Visit: Yes (2) Alcohol abuse SNOMED Code(s): 35449910 Code(s): F10.10 - ALCOHOL ABUSE, UNCOMPLICATED Status: Acute Current Visit: Yes (3) Alcoholic hepatitis SNOMED Code(s): 735413701 Code(s): K70.10 - ALCOHOLIC HEPATITIS WITHOUT ASCITES Status: Acute Current Visit: Yes (4) Liver failure, acute SNOMED Code(s): 389861559 Code(s): K72.00 - ACUTE AND SUBACUTE HEPATIC FAILURE WITHOUT COMA Status: Acute Current Visit: Yes - Problem List Review Problem List Initiated/Reviewed/Updated: Yes - My Orders Last 24 Hours: My Active Orders 03/17/21 Dinner Regular Diet [DIET] - Plan Plan:: Alcoholic Cirrhosis, Ascites: [facility] protocol for Ativan. Lactated Ringer's at 125 ml/h. Ammonia levels improving. Ammonia 68. INR 1.75. Total bili 1.75. Hepatitis B negative. Hepatitis C negative. Repleted potassium IV n.p.o. Repleted magnesium. Spironolactone 25 mg. IV Zosyn. Zofran. Protonix.
[2021-03-18] MEDS ORDERED: Potassium Chloride 20 MEQ Tab.ER PO ONE ×3 (08:26→21:00)
[2021-03-18] MEDS ORDERED: Potassium Chloride Riders 40 MEQ in Premix Bag 1 BAG IV ONE (08:26)
[2021-03-18] MEDS ORDERED: Magnesium Oxide 400 MG Tab PO ONE (08:28)
[2021-03-18] MEDS ORDERED: Sodium Chloride 0.9% with KCl 1,000 ML IV ONE (09:45)
[2021-03-18] MEDS: Pantoprazole 40 MG in Sodium Chloride 0.9% 10 ML IV SCH (09:57)
[2021-03-18] MEDS: Spironolactone 25 MG Tab PO SCH (09:57)
[2021-03-18] MEDS ORDERED: oxyCODONE 5 MG Tab PO PRN (12:29)
[2021-03-18 20:03] LABS: BLOOD UREA NITROGEN,BUN 6 mg/dL (7.0-18.0); CARBON DIOXIDE,CO2 28.7 mmol/L (21.0-32.0); CHLORIDE,CL 97 mmol/L (98-107); GLUCOSE RANDOM 149 mg/dL (74-106); POTASSIUM,K 3.3 mmol/L (3.5-5.1); SODIUM,NA 133 mmol/L (136-148)
[2021-03-18] MEDS: oxyCODONE 5 MG Tab PO PRN (21:02)
[2021-03-19] MEDS ORDERED: Magnesium Sulfate/Water 2 GM/50 ML Premix Bag IV ONE (00:19)
[2021-03-19] MEDS ORDERED: Potassium Chloride 20 MEQ Tab.ER PO ONE (00:19)
[2021-03-19] MEDS ORDERED: Magnesium Sulfate/Water 50 ML IV ONE (00:30)
[2021-03-19] MEDS: Piperacillin/Tazobactam 3.375 GM in Sodium Chloride 0.9% 50 ML IV SCH ×3 (05:20→21:23)
--- NOTE | 2021-03-19 07:09 | PCM.PN ---
- General Info Date of Service: 03/19/21 Admission Dx/Problem (Free Text): Admission Diagnosis/Problem Admission Diagnosis/Problem Acute liver failure Subjective Update: Patient seen at bedside this morning. Ascites increased slightly. Patient complains of abdominal discomfort from the ascites, controlled by oxycodone. Denies tenderness. Denies diaphoresis, tremors, hallucinations. Patient had a yogurt this morning. Tolerating small amounts of food. Patient denies fever, chills, nausea, vomiting, diarrhea, chest pain, palpitations, dizziness, confusion, headaches, or difficulty ambulating. - Review of Systems General: Reports: Weakness, Fatigue. Denies: Fever, Chills HEENT: Denies: Visual Changes Pulmonary: Denies: Shortness of Breath, Pleuritic Chest Pain, Cough Cardiovascular: Denies: Chest Pain, Palpitations, Dyspnea on Exertion, L ightheadedness Gastrointestinal: Reports: Abdominal Pain, Decreased Appetite, Flatus. Denies: Constipation, Diarrhea, Difficulty Swallowing, Hematochezia, Melena, Nausea, Vom iting Genitourinary: Denies: Dysuria Musculoskeletal: Denies: Arm Pain, Leg Pain Skin: Reports: Jaundice Neurological: Denies: Confusion, Dizziness, Headache, Numbness, Paresthesia - Patient Data Vitals - Most Recent: Last Vital Signs Temp 97.1 F 03/19/21 04:00 Pulse 89 03/19/21 04:00 Resp 17 03/19/21 04:00 BP 116/63 03/19/21 04:00 Pulse Ox 92 L 03/19/21 04:00 Weight - Most Recent: 228 lb I&O - Last 24 Hours: Intake & Output 03/18/21 03/19/21 03/19/21 22:59 06:59 14:59 Intake Total 910 640 Output Total 700 350 Balance 210 290 Lab Results Last 24 Hours: Laboratory Results - last 24 hr 03/18/21 Range/Units 19:36 Sodium 133 L (136-148) mmol/L Potassium 3.3 L (3.5-5.1) mmol/L Chloride 97 L (98-107) mmol/L Carbon Dioxide 28.7 (21.0-32.0) mmol/L BUN 6 L (7.0-18.0) mg/dL Creatinine 0.9 (0.8-1.3) mg/dL Est Cr Clr Drug Dosing 135.29 mL/min Estimated GFR (MDRD) > 60.0 ml/min Glucose 149 H (74-106) mg/dL Calcium 6.9 L (8.5-10.1) mg/dL Magnesium 1.5 L (1.8-2.4) mg/dL [place] Results Last 24 Hours: Microbiology 03/17/21 05:18 Aerobic Blood Culture - Preliminary Blood - Venous - Lab Draw NO GROWTH AFTER 2 DAYS Anaerobic Blood Culture - Preliminary NO GROWTH AFTER 2 DAYS 03/16/21 23:35 Aerobic Blood Culture - Preliminary Blood - Venous NO GROWTH AFTER 2 DAYS Anaerobic Blood Culture - Preliminary NO GROWTH AFTER 2 DAYS 03/17/21 02:15 Gram Stain - Final Peritoneal Fluid Med Orders - Current: Current Medications Acetaminophen (Acetaminophen 325 Mg Tab) 325 mg PO Q6H PRN PRN Reason: Pain Last Admin: 03/18/21 04:01 Dose: 325 mg Documented by: Albuterol/Ipratropium (Albuterol/Ipratropium 3.0-0.5 Mg/3 Ml Neb Soln) 3 ml NEB Q4HRRT PRN PRN Reason: Shortness Of Breath/wheezing Pantoprazole Sodium 40 mg/ (Sodium Chloride) 10 mls @ 300 mls/hr IV DAILY [facility] Last Admin: 03/18/21 09:57 Dose: 300 mls/hr Documented by: Piperacillin Sod/Tazobactam (Sod 3.375 gm/ Sodium Chloride) 50 mls @ 100 mls/hr IV Q8H [facility] Last Admin: 03/19/21 05:20 Dose: 100 mls/hr Documented by: Lorazepam (Lorazepam 2 Mg/Ml Sdv) 0 mg IVPUSH Q4H PRN; Protocol PRN Reason: Withdrawal Symptoms Ondansetron HCl (Ondansetron 4 Mg/2 Ml Sdv) 4 mg IVPUSH Q4H PRN PRN Reason: Nausea/Vomiting Oxycodone HCl (Oxycodone 5 Mg Tab) 5 mg PO Q6H PRN PRN Reason: Pain Last Admin: 03/18/21 21:02 Dose: 5 mg Documented by: Spironolactone (Spironolactone 25 Mg Tab) 25 mg PO DAILY [facility] Last Admin: 03/18/21 09:57 Dose: 25 mg Documented by: Discontinued Medications Sodium Chloride (Normal Saline) 1,000 mls @ 999 mls/hr IV ASDIRECTED [facility] Last Admin: 03/17/21 00:28 Dose: 999 mls/hr Documented by: Piperacillin Sod/Tazobactam (Sod 4.5 gm/ Sodium Chloride) 100 mls @ 100 mls/hr IV ONETIME ONE Stop: 03/17/21 05:33 Last Admin: 03/17/21 04:42 Dose: 100 mls/hr Documented by: Pantoprazole Sodium 80 mg/ (Sodium Chloride) 20 mls @ 420 mls/hr IVPUSH ONETIME ONE Stop: 03/17/21 05:17 Last Admin: 03/17/21 06:26 Dose: 420 mls/hr Documented by: Lactated Ringer's (Ringers, Lactated) 1,000 mls @ 125 mls/hr IV ASDIRECTED [facility] Stop: 03/17/21 23:00 Last Admin: 03/17/21 17:25 Dose: 125 mls/hr Documented by: Magnesium Sulfate 2 gm/ Premix 50 mls @ 200 mls/hr IV ONETIME ONE Stop: 03/17/21 20:25 Last Admin: 03/17/21 20:17 Dose: 200 mls/hr Documented by: Potassium Chloride/Sodium Chloride (Normal Saline With 40 Meq Kcl) 1,000 mls @ 250 mls/hr IV ONETIME ONE Stop: 03/18/21 13:44 Last Admin: 03/18/21 10:15 Dose: 250 mls/hr Documented by: Magnesium Sulfate (Magnesium Sulfate In Water 2 Gm/50 Ml) 50 mls @ 50 mls/hr IV NOW ONE Stop: 03/19/21 01:29 Last Admin: 03/19/21 00:52 Dose: 50 mls/hr Documented by: Iopamidol (Iopamidol 755 Mg/Ml 500 Ml Multipack Bottle) 100 ml IVPUSH ONETIME [facility] Stop: 03/17/21 00:23 Last Admin: 03/17/21 00:23 Dose: 100 ml Documented by: Magnesium Oxide (Magnesium Oxide 400 Mg Tab) 800 mg PO ONETIME ONE Stop: 03/18/21 08:29 Last Admin: 03/18/21 09:58 Dose: 800 mg Documented by: Magnesium Sulfate (Magnesium Sulfate/Water 2 Gm/50 Ml Premix Bag) 2 gm IV ONETIME ONE Stop: 03/19/21 00:20 Oxycodone HCl (Oxycodone 5 Mg Tab) 5 mg PO Q8H PRN PRN Reason: Pain Last Admin: 03/18/21 13:16 Dose: 5 mg Documented by: Phytonadione (Phytonadione 5 Mg Tab) 5 mg PO ONETIME ONE Stop: 03/17/21 05:16 Last Admin: 03/17/21 07:34 Dose: Not Given Documented by: Phytonadione (Phytonadione 10 Mg/1 Ml Amp) 5 mg PO ONETIME ONE Stop: 03/17/21 07:16 Last Admin: 03/17/21 07:32 Dose: 5 mg Documented by: Phytonadione (Phytonadione 10 Mg/1 Ml Amp) 5 mg PO ONETIME ONE Stop: 03/18/21 09:01 Potassium Chloride (Potassium Chloride 20 Meq Tab.Er) 40 meq PO ONETIME ONE Stop: 03/18/21 08:27 Last Admin: 03/18/21 09:57 Dose: 40 meq Documented by: Potassium Chloride (Potassium Chloride 20 Meq Tab.Er) 40 meq PO ONETIME ONE Stop: 03/18/21 11:01 Last Admin: 03/18/21 11:37 Dose: Not Given Documented by: Potassium Chloride (Potassium Chloride 20 Meq Tab.Er) 40 meq PO ONETIME ONE Stop: 03/18/21 21:01 Last Admin: 03/18/21 21:01 Dose: 40 meq Documented by: Potassium Chloride (Potassium Chloride 20 Meq Tab.Er) 40 meq PO ONETIME ONE Stop: 03/19/21 00:20 Last Admin: 03/19/21 01:21 Dose: Not Given Documented by: - Exam Quality Assessment: No: Supplemental Oxygen General: Alert, Oriented, Cooperative, Mild Distress HEENT: Pupils Equal, Scleral Icterus Neck: Supple, Trachea Midline, No JVD Lungs: Clear to Auscultation Cardiovascular: Regular Rate, Regular Rhythm GI/Abdominal Exam: Soft, Distended. No: Guarding, Rigid, Rebound, Tender Back Exam: Normal Inspection Extremities: Normal Inspection, No Pedal Edema. No: Ramirez's Sign Peripheral Pulses: 2+: Dorsalis Pedis (L), Dorsalis Pedis (R) Neurological: No New Focal Deficit - Patient Data Lab Results Last 24 hrs: Laboratory Results - last 24 hr 03/18/21 Range/Units 19:36 Sodium 133 L (136-148) mmol/L Potassium 3.3 L (3.5-5.1) mmol/L Chloride 97 L (98-107) mmol/L Carbon Dioxide 28.7 (21.0-32.0) mmol/L BUN 6 L (7.0-18.0) mg/dL Creatinine 0.9 (0.8-1.3) mg/dL Est Cr Clr Drug Dosing 135.29 mL/min Estimated GFR (MDRD) > 60.0 ml/min Glucose 149 H (74-106) mg/dL Calcium 6.9 L (8.5-10.1) mg/dL Magnesium 1.5 L (1.8-2.4) mg/dL Result Diagrams: 03/19/21 06:21 03/19/21 06:21 [place] Results Last 24 hrs: Microbiology 03/17/21 05:18 Aerobic Blood Culture - Preliminary Blood - Venous - Lab Draw NO GROWTH AFTER 2 DAYS Anaerobic Blood Culture - Preliminary NO GROWTH AFTER 2 DAYS 03/16/21 23:35 Aerobic Blood Culture - Preliminary Blood - Venous NO GROWTH AFTER 2 DAYS Anaerobic Blood Culture - Preliminary NO GROWTH AFTER 2 DAYS 03/17/21 02:15 Gram Stain - Final Peritoneal Fluid Sepsis Event Note - Evaluation Sepsis Screening Result: No Definite Risk - Focused Exam Vital Signs: Vital Signs Temp Pulse Resp BP Pulse Ox 03/19/21 04:00 97.1 F 89 17 116/63 92 L 03/19/21 00:00 97.7 F 84 19 113/64 95 03/18/21 20:00 98.6 F 93 17 91 L - Problem List & Annotations (1) Ascites SNOMED Code(s): 845547046 Code(s): R18.8 - OTHER ASCITES Status: Acute Current Visit: Yes (2) Alcohol abuse SNOMED Code(s): 69979800 Code(s): F10.10 - ALCOHOL ABUSE, UNCOMPLICATED Status: Acute Current Visit: Yes (3) Alcoholic hepatitis SNOMED Code(s): 761877240 Code(s): K70.10 - ALCOHOLIC HEPATITIS WITHOUT ASCITES Status: Acute Current Visit: Yes (4) Liver failure, acute SNOMED Code(s): 984381897 Code(s): K72.00 - ACUTE AND SUBACUTE HEPATIC FAILURE WITHOUT COMA Status: Acute Current Visit: Yes - Problem List Review Problem List Initiated/Reviewed/Updated: Yes - My Orders Last 24 Hours: My Active Orders 03/19/21 05:11 CBC W/O DIFF,HEMOGRAM [HEME] AM COMPREHENSIVE METABOLIC PN,CMP [CHEM] AM MAGNESIUM [CHEM] AM PHOSPHORUS [CHEM] AM 03/20/21 05:11 CBC W/O DIFF,HEMOGRAM [HEME] AM COMPREHENSIVE METABOLIC PN,CMP [CHEM] AM MAGNESIUM [CHEM] AM PHOSPHORUS [CHEM] AM - Plan Plan:: Alcoholic Cirrhosis, Ascites: [facility] protocol for Ativan. Total bilirubin improving. Abdominal distention worsening., Remains soft and nontender. Repleted potassium. Repleted magnesium. Lactulose. Spironolactone 25 mg. IV Zosyn. Zofran. Protonix.
[2021-03-19 08:04] LABS: BLOOD UREA NITROGEN,BUN 6 mg/dL (7.0-18.0); CHLORIDE,CL 98 mmol/L (98-107); GLUCOSE RANDOM 92 mg/dL (74-106); POTASSIUM,K 3.5 mmol/L (3.5-5.1); SODIUM,NA 133 mmol/L (136-148)
[2021-03-19] MEDS: oxyCODONE 5 MG Tab PO PRN ×3 (08:28→23:46)
[2021-03-19] MEDS: Spironolactone 25 MG Tab PO SCH (09:01)
[2021-03-19] MEDS: Pantoprazole 40 MG in Sodium Chloride 0.9% 10 ML IV SCH (09:01)
[2021-03-19] MEDS ORDERED: Furosemide 40 MG/4 ML VIAL IVPUSH ONE (09:52)
[2021-03-19] MEDS: Lactulose Soln 10 GM/15 ML 15 ML UD Cup PO SCH ×2 (10:51→21:24)
[2021-03-19] MEDS: Phosphorus #1 250 MG Tab PO SCH ×4 (10:51→23:46)
[2021-03-19] MEDS: Potassium Chloride 20 MEQ Tab.ER PO SCH ×2 (10:51→21:24)
[2021-03-19] MEDS: Thiamine 100 MG Tab PO SCH (21:24)
[2021-03-20] MEDS: Piperacillin/Tazobactam 3.375 GM in Sodium Chloride 0.9% 50 ML IV SCH ×3 (05:04→20:03)
[2021-03-20] MEDS: Phosphorus #1 250 MG Tab PO SCH ×4 (05:08→23:38)
[2021-03-20 07:05] LABS: BLOOD UREA NITROGEN,BUN 6 mg/dL (7.0-18.0); CARBON DIOXIDE,CO2 32.3 mmol/L (21.0-32.0); CHLORIDE,CL 98 mmol/L (98-107); GLUCOSE RANDOM 95 mg/dL (74-106); POTASSIUM,K 3.9 mmol/L (3.5-5.1); SODIUM,NA 134 mmol/L (136-148)
[2021-03-20] MEDS: Pantoprazole 40 MG in Sodium Chloride 0.9% 10 ML IV SCH (08:47)
[2021-03-20] MEDS: Spironolactone 25 MG Tab PO SCH (08:48)
[2021-03-20] MEDS: oxyCODONE 5 MG Tab PO PRN ×3 (08:48→22:16)
[2021-03-20] MEDS: Lactulose Soln 10 GM/15 ML 15 ML UD Cup PO SCH ×2 (08:48→20:01)
[2021-03-20] MEDS: Potassium Chloride 20 MEQ Tab.ER PO SCH ×2 (08:48→20:01)
[2021-03-20] MEDS ORDERED: Magnesium Sulfate/Water 2 GM/50 ML Premix Bag IV ONE (10:24)
[2021-03-20] MEDS ORDERED: Magnesium Sulfate/Water 2 GM in Premix Bag 1 BAG IV ONE (10:45)
--- NOTE | 2021-03-20 13:00 | PCM.PN ---
- General Info Date of Service: 03/20/21 - Review of Systems Systems Review Comment:: reports abdominal distention, no fevers, - Patient Data Vitals - Most Recent: Last Vital Signs Temp 36.6 C 03/20/21 12:00 Pulse 101 H 03/20/21 12:00 Resp 19 03/20/21 12:00 BP 129/71 03/20/21 12:00 Pulse Ox 92 L 03/20/21 12:00 Weight - Most Recent: 103.419 kg I&O - Last 24 Hours: Intake & Output 03/19/21 03/20/21 03/20/21 22:59 06:59 14:59 Intake Total 750 950 Output Total 1300 0 Balance -550 950 Lab Results Last 24 Hours: Laboratory Results - last 24 hr 03/17/21 03/20/21 03/20/21 Range/Units 03:55 06:10 06:10 WBC 7.42 (4.0-11.0) K/uL RBC 3.23 L (4.50-5.90) M/uL Hgb 11.6 L (13.0-17.0) g/dL Hct 34.1 L (38.0-50.0) % MCV 105.6 H (80.0-98.0) fL MCH 35.9 H (27.0-32.0) pg MCHC 34.0 (31.0-37.0) g/dL RDW Std Deviation 62.0 (28.0-62.0) fl RDW Coeff of Briseida 16 H (11.0-15.0) % Plt Count 129 L (150-400) K/uL MPV 10.60 (7.40-12.00) fL Nucleated RBC % 0.0 /100WBC Nucleated RBCs # 0 K/uL INR 1.65 Sodium (136-148) mmol/L Potassium (3.5-5.1) mmol/L Chloride (98-107) mmol/L Carbon Dioxide (21.0-32.0) mmol/L BUN (7.0-18.0) mg/dL Creatinine (0.8-1.3) mg/dL Est Cr Clr Drug Dosing mL/min Estimated GFR (MDRD) ml/min Glucose (74-106) mg/dL Calcium (8.5-10.1) mg/dL Phosphorus (2.6-4.7) mg/dL Magnesium (1.8-2.4) mg/dL Total Bilirubin (0.2-1.0) mg/dL AST (15-37) IU/L ALT (14-63) IU/L Alkaline Phosphatase (46-116) U/L Total Protein (6.4-8.2) g/dL Albumin (3.4-5.0) g/dL Globulin (2.6-4.0) g/dL Albumin/Globulin Ratio (0.9-1.6) Hepatitis A IgM Ab Negative (Negative) Hep Bs Antigen Negative (Negative) Hep B Core IgM Ab Negative (Negative) Hepatitis C Antibody 0.2 (0.0-0.9) s/co ratio 03/20/21 Range/Units 06:10 WBC (4.0-11.0) K/uL RBC (4.50-5.90) M/uL Hgb (13.0-17.0) g/dL Hct (38.0-50.0) % MCV (80.0-98.0) fL MCH (27.0-32.0) pg MCHC (31.0-37.0) g/dL RDW Std Deviation (28.0-62.0) fl RDW Coeff of Briseida (11.0-15.0) % Plt Count (150-400) K/uL MPV (7.40-12.00) fL Nucleated RBC % /100WBC Nucleated RBCs # K/uL INR Sodium 134 L (136-148) mmol/L Potassium 3.9 (3.5-5.1) mmol/L Chloride 98 (98-107) mmol/L Carbon Dioxide 32.3 H (21.0-32.0) mmol/L BUN 6 L (7.0-18.0) mg/dL Creatinine 1.0 (0.8-1.3) mg/dL Est Cr Clr Drug Dosing 121.76 mL/min Estimated GFR (MDRD) > 60.0 ml/min Glucose 95 (74-106) mg/dL Calcium 7.5 L (8.5-10.1) mg/dL Phosphorus 3.3 (2.6-4.7) mg/dL Magnesium 1.6 L (1.8-2.4) mg/dL Total Bilirubin 4.9 H (0.2-1.0) mg/dL AST 73 H (15-37) IU/L ALT 20 (14-63) IU/L Alkaline Phosphatase 83 (46-116) U/L Total Protein 7.6 (6.4-8.2) g/dL Albumin 1.7 L (3.4-5.0) g/dL Globulin 5.9 H (2.6-4.0) g/dL Albumin/Globulin Ratio 0.3 L (0.9-1.6) Hepatitis A IgM Ab (Negative) Hep Bs Antigen (Negative) Hep B Core IgM Ab (Negative) Hepatitis C Antibody (0.0-0.9) s/co ratio [place]ilan Results Last 24 Hours: Microbiology 03/17/21 12:40 Urine Culture - Final Urine 03/17/21 05:18 Aerobic Blood Culture - Preliminary Blood - Venous - Lab Draw NO GROWTH AFTER 3 DAYS Anaerobic Blood Culture - Preliminary NO GROWTH AFTER 3 DAYS 03/16/21 23:35 Aerobic Blood Culture - Preliminary Blood - Venous NO GROWTH AFTER 3 DAYS Anaerobic Blood Culture - Preliminary NO GROWTH AFTER 3 DAYS 03/17/21 02:15 Miscellaneous Reference Culture - Preliminary Peritoneal Fluid Gram Stain - Final Med Orders - Current: Current Medications Acetaminophen (Acetaminophen 325 Mg Tab) 325 mg PO Q6H PRN PRN Reason: Pain Last Admin: 03/18/21 04:01 Dose: 325 mg Documented by: Albuterol/Ipratropium (Albuterol/Ipratropium 3.0-0.5 Mg/3 Ml Neb Soln) 3 ml NEB Q4HRRT PRN PRN Reason: Shortness Of Breath/wheezing Furosemide (Furosemide 40 Mg/4 Ml Vial) 40 mg IVPUSH BID [facility] Pantoprazole Sodium 40 mg/ (Sodium Chloride) 10 mls @ 300 mls/hr IV DAILY [facility] Last Admin: 03/20/21 08:47 Dose: 300 mls/hr Documented by: Piperacillin Sod/Tazobactam (Sod 3.375 gm/ Sodium Chloride) 50 mls @ 100 mls/hr IV Q8H [facility] Last Admin: 03/20/21 12:47 Dose: 100 mls/hr Documented by: Lactulose (Lactulose Soln 10 Gm/15 Ml 15 Ml Ud Cup) 10 gm PO BID [facility] Last Admin: 03/20/21 08:48 Dose: 10 gm Documented by: Lorazepam (Lorazepam 2 Mg/Ml Sdv) 0 mg IVPUSH Q4H PRN; Protocol PRN Reason: Withdrawal Symptoms Ondansetron HCl (Ondansetron 4 Mg/2 Ml Sdv) 4 mg IVPUSH Q4H PRN PRN Reason: Nausea/Vomiting Oxycodone HCl (Oxycodone 5 Mg Tab) 5 mg PO Q6H PRN PRN Reason: Pain Last Admin: 03/20/21 08:48 Dose: 5 mg Documented by: Potassium Chloride (Potassium Chloride 20 Meq Tab.Er) 40 meq PO BID [facility] Last Admin: 03/20/21 08:48 Dose: 40 meq Documented by: Sodium Phosphate (Phosphorus #1 250 Mg Tab) 250 mg PO QID [facility] Stop: 03/21/21 09:00 Last Admin: 03/20/21 12:31 Dose: 250 mg Documented by: Spironolactone (Spironolactone 25 Mg Tab) 25 mg PO DAILY [facility] Last Admin: 03/20/21 08:48 Dose: 25 mg Documented by: Thiamine HCl (Thiamine 100 Mg Tab) 100 mg PO BEDTIME [facility] Last Admin: 03/19/21 21:24 Dose: 100 mg Documented by: Discontinued Medications Furosemide (Furosemide 40 Mg/4 Ml Vial) 40 mg IVPUSH NOW ONE Stop: 03/19/21 09:53 Last Admin: 03/19/21 10:51 Dose: 40 mg Documented by: Sodium Chloride (Normal Saline) 1,000 mls @ 999 mls/hr IV ASDIRECTED [facility] Last Admin: 03/17/21 00:28 Dose: 999 mls/hr Documented by: Piperacillin Sod/Tazobactam (Sod 4.5 gm/ Sodium Chloride) 100 mls @ 100 mls/hr IV ONETIME ONE Stop: 03/17/21 05:33 Last Admin: 03/17/21 04:42 Dose: 100 mls/hr Documented by: Pantoprazole Sodium 80 mg/ (Sodium Chloride) 20 mls @ 420 mls/hr IVPUSH ONETIME ONE Stop: 03/17/21 05:17 Last Admin: 03/17/21 06:26 Dose: 420 mls/hr Documented by: Lactated Ringer's (Ringers, Lactated) 1,000 mls @ 125 mls/hr IV ASDIRECTED [facility] Stop: 03/17/21 23:00 Last Admin: 03/17/21 17:25 Dose: 125 mls/hr Documented by: Magnesium Sulfate 2 gm/ Premix 50 mls @ 200 mls/hr IV ONETIME ONE Stop: 03/17/21 20:25 Last Admin: 03/17/21 20:17 Dose: 200 mls/hr Documented by: Potassium Chloride/Sodium Chloride (Normal Saline With 40 Meq Kcl) 1,000 mls @ 250 mls/hr IV ONETIME ONE Stop: 03/18/21 13:44 Last Admin: 03/18/21 10:15 Dose: 250 mls/hr Documented by: Magnesium Sulfate (Magnesium Sulfate In Water 2 Gm/50 Ml) 50 mls @ 50 mls/hr IV NOW ONE Stop: 03/19/21 01:29 Last Admin: 03/19/21 00:52 Dose: 50 mls/hr Documented by: Magnesium Sulfate 2 gm/ Premix 50 mls @ 25 mls/hr IV ONETIME ONE Stop: 03/20/21 12:44 Last Admin: 03/20/21 10:49 Dose: 25 mls/hr Documented by: Iopamidol (Iopamidol 755 Mg/Ml 500 Ml Multipack Bottle) 100 ml IVPUSH ONETIME STA Stop: 03/17/21 00:23 Last Admin: 03/17/21 00:23 Dose: 100 ml Documented by: Magnesium Oxide (Magnesium Oxide 400 Mg Tab) 800 mg PO ONETIME ONE Stop: 03/18/21 08:29 Last Admin: 03/18/21 09:58 Dose: 800 mg Documented by: Magnesium Sulfate (Magnesium Sulfate/Water 2 Gm/50 Ml Premix Bag) 2 gm IV ONETIME ONE Stop: 03/19/21 00:20 Oxycodone HCl (Oxycodone 5 Mg Tab) 5 mg PO Q8H PRN PRN Reason: Pain Last Admin: 03/18/21 13:16 Dose: 5 mg Documented by: Phytonadione (Phytonadione 5 Mg Tab) 5 mg PO ONETIME ONE Stop: 03/17/21 05:16 Last Admin: 03/17/21 07:34 Dose: Not Given Documented by: Phytonadione (Phytonadione 10 Mg/1 Ml Amp) 5 mg PO ONETIME ONE Stop: 03/17/21 07:16 Last Admin: 03/17/21 07:32 Dose: 5 mg Documented by: Phytonadione (Phytonadione 10 Mg/1 Ml Amp) 5 mg PO ONETIME ONE Stop: 03/18/21 09:01 Potassium Chloride (Potassium Chloride 20 Meq Tab.Er) 40 meq PO ONETIME ONE Stop: 03/18/21 08:27 Last Admin: 03/18/21 09:57 Dose: 40 meq Documented by: Potassium Chloride (Potassium Chloride 20 Meq Tab.Er) 40 meq PO ONETIME ONE Stop: 03/18/21 11:01 Last Admin: 03/18/21 11:37 Dose: Not Given Documented by: Potassium Chloride (Potassium Chloride 20 Meq Tab.Er) 40 meq PO ONETIME ONE Stop: 03/18/21 21:01 Last Admin: 03/18/21 21:01 Dose: 40 meq Documented by: Potassium Chloride (Potassium Chloride 20 Meq Tab.Er) 40 meq PO ONETIME ONE Stop: 03/19/21 00:20 Last Admin: 03/19/21 01:21 Dose: Not Given Documented by: - Exam General: Alert, Oriented Lungs: Clear to Auscultation, Normal Respiratory Effort Cardiovascular: Regular Rate, Regular Rhythm GI/Abdominal Exam: Normal Bowel Sounds, Soft, Non-Tender Extremities: Non-Tender, No Pedal Edema Skin: Warm, Dry, Intact Neurological: No New Focal Deficit - Patient Data Lab Results Last 24 hrs: Laboratory Results - last 24 hr 03/17/21 03/20/21 03/20/21 Range/Units 03:55 06:10 06:10 WBC 7.42 (4.0-11.0) K/uL RBC 3.23 L (4.50-5.90) M/uL Hgb 11.6 L (13.0-17.0) g/dL Hct 34.1 L (38.0-50.0) % MCV 105.6 H (80.0-98.0) fL MCH 35.9 H (27.0-32.0) pg MCHC 34.0 (31.0-37.0) g/dL RDW Std Deviation 62.0 (28.0-62.0) fl RDW Coeff of Briseida 16 H (11.0-15.0) % Plt Count 129 L (150-400) K/uL MPV 10.60 (7.40-12.00) fL Nucleated RBC % 0.0 /100WBC Nucleated RBCs # 0 K/uL INR 1.65 Sodium (136-148) mmol/L Potassium (3.5-5.1) mmol/L Chloride (98-107) mmol/L Carbon Dioxide (21.0-32.0) mmol/L BUN (7.0-18.0) mg/dL Creatinine (0.8-1.3) mg/dL Est Cr Clr Drug Dosing mL/min Estimated GFR (MDRD) ml/min Glucose (74-106) mg/dL Calcium (8.5-10.1) mg/dL Phosphorus (2.6-4.7) mg/dL Magnesium (1.8-2.4) mg/dL Total Bilirubin (0.2-1.0) mg/dL AST (15-37) IU/L ALT (14-63) IU/L Alkaline Phosphatase (46-116) U/L Total Protein (6.4-8.2) g/dL Albumin (3.4-5.0) g/dL Globulin (2.6-4.0) g/dL Albumin/Globulin Ratio (0.9-1.6) Hepatitis A IgM Ab Negative (Negative) Hep Bs Antigen Negative (Negative) Hep B Core IgM Ab Negative (Negative) Hepatitis C Antibody 0.2 (0.0-0.9) s/co ratio 03/20/21 Range/Units 06:10 WBC (4.0-11.0) K/uL RBC (4.50-5.90) M/uL Hgb (13.0-17.0) g/dL Hct (38.0-50.0) % MCV (80.0-98.0) fL MCH (27.0-32.0) pg MCHC (31.0-37.0) g/dL RDW Std Deviation (28.0-62.0) fl RDW Coeff of Briseida (11.0-15.0) % Plt Count (150-400) K/uL MPV (7.40-12.00) fL Nucleated RBC % /100WBC Nucleated RBCs # K/uL INR Sodium 134 L (136-148) mmol/L Potassium 3.9 (3.5-5.1) mmol/L Chloride 98 (98-107) mmol/L Carbon Dioxide 32.3 H (21.0-32.0) mmol/L BUN 6 L (7.0-18.0) mg/dL Creatinine 1.0 (0.8-1.3) mg/dL Est Cr Clr Drug Dosing 121.76 mL/min Estimated GFR (MDRD) > 60.0 ml/min Glucose 95 (74-106) mg/dL Calcium 7.5 L (8.5-10.1) mg/dL Phosphorus 3.3 (2.6-4.7) mg/dL Magnesium 1.6 L (1.8-2.4) mg/dL Total Bilirubin 4.9 H (0.2-1.0) mg/dL AST 73 H (15-37) IU/L ALT 20 (14-63) IU/L Alkaline Phosphatase 83 (46-116) U/L Total Protein 7.6 (6.4-8.2) g/dL Albumin 1.7 L (3.4-5.0) g/dL Globulin 5.9 H (2.6-4.0) g/dL Albumin/Globulin Ratio 0.3 L (0.9-1.6) Hepatitis A IgM Ab (Negative) Hep Bs Antigen (Negative) Hep B Core IgM Ab (Negative) Hepatitis C Antibody (0.0-0.9) s/co ratio Result Diagrams: 03/20/21 06:10 03/20/21 06:10 [place] Results Last 24 hrs: Microbiology 03/17/21 12:40 Urine Culture - Final Urine 03/17/21 05:18 Aerobic Blood Culture - Preliminary Blood - Venous - Lab Draw NO GROWTH AFTER 3 DAYS Anaerobic Blood Culture - Preliminary NO GROWTH AFTER 3 DAYS 03/16/21 23:35 Aerobic Blood Culture - Preliminary Blood - Venous NO GROWTH AFTER 3 DAYS Anaerobic Blood Culture - Preliminary NO GROWTH AFTER 3 DAYS 03/17/21 02:15 Miscellaneous Reference Culture - Preliminary Peritoneal Fluid Gram Stain - Final Sepsis Event Note - Evaluation Sepsis Screening Result: No Definite Risk - Focused Exam Vital Signs: Vital Signs Temp Pulse Resp BP Pulse Ox 03/20/21 12:00 36.6 C 101 H 19 129/71 92 L 03/20/21 08:00 36.4 C 92 18 118/63 94 L 03/20/21 03:32 36.6 C 92 16 109/62 93 L - Problem List Review Problem List Initiated/Reviewed/Updated: Yes - My Orders Last 24 Hours: My Active Orders 03/20/21 Lunch Fluid Restriction [DIET] 03/20/21 21:00 Furosemide [Lasix] 40 mg IVPUSH BID - Plan Plan:: Alcoholic Cirrhosis, Ascites: [facility] protocol for Ativan. Total bilirubin improving. abdomen not tense, nontender Will increase lasix to BID, continue potassium replacement Spironolactone 25 mg. IV Zosyn. Zofran. Protonix. anticipate discharge home tomorrow.
[2021-03-20] MEDS: Thiamine 100 MG Tab PO SCH (20:08)
[2021-03-20] MEDS: Furosemide 40 MG/4 ML VIAL IVPUSH SCH (20:09)
[2021-03-21] MEDS: oxyCODONE 5 MG Tab PO PRN ×4 (04:28→23:25)
[2021-03-21] MEDS: Piperacillin/Tazobactam 3.375 GM in Sodium Chloride 0.9% 50 ML IV SCH ×3 (04:30→20:50)
[2021-03-21] MEDS: Phosphorus #1 250 MG Tab PO SCH (05:28)
[2021-03-21 06:35] LABS: BLOOD UREA NITROGEN,BUN 5 mg/dL (7.0-18.0); CHLORIDE,CL 98 mmol/L (98-107); GLUCOSE RANDOM 86 mg/dL (74-106); POTASSIUM,K 3.7 mmol/L (3.5-5.1); SODIUM,NA 136 mmol/L (136-148)
[2021-03-21] MEDS: Pantoprazole 40 MG in Sodium Chloride 0.9% 10 ML IV SCH (09:33)
[2021-03-21] MEDS: Potassium Chloride 20 MEQ Tab.ER PO SCH ×2 (09:34→20:49)
[2021-03-21] MEDS: Spironolactone 25 MG Tab PO SCH (09:34)
[2021-03-21] MEDS: Lactulose Soln 10 GM/15 ML 15 ML UD Cup PO SCH ×2 (09:34→20:49)
[2021-03-21] MEDS: Furosemide 40 MG/4 ML VIAL IVPUSH SCH ×2 (09:34→20:49)
[2021-03-21] MEDS ORDERED: Magnesium Sulfate/Water 4 GM in Premix Bag 1 BAG IV ONE (14:42)
--- NOTE | 2021-03-21 15:18 | PCM.PN ---
<Cristo Abarca - Last Filed: 03/21/21 15:13> - General Info Date of Service: 03/21/21 Subjective Update: The patient is a 40-year-old male, on day 5 of service, with a significant past medical history of obesity with a BMI over 30, who was admitted due to alcoholic cirrhosis with ascites. Upon interview with the patient today he has diffuse abdominal pain in all quadrants which is 8 out of 10 in intensity, gnawing and pressure-like in nature, and nonradiating. He admits that the pain significantly decreases with oxycodone pain medication however he must lay on his back otherwise the pain is aggravated with movement and lying on his side. Over the past couple days the patient's bilirubin levels have been improving and are 4.5 today. The patient is also complaining of sleep dis turbances due to the pain and admits he gets an hour to two here and there when he does receive pain medication. Due to the patient's worsening pain we will have a CT of the abdomen with and without contrast done today for better visualization of his internal structures. The patient has no other complaints at this time. - Review of Systems General: Reports: Fatigue. Denies: Fever HEENT: Denies: Headaches Pulmonary: Denies: Shortness of Breath, Pleuritic Chest Pain, Cough Cardiovascular: Denies: Chest Pain, Palpitations Gastrointestinal: Reports: Abdominal Pain. Denies: Nausea, Vomiting Genitourinary: Denies: Dysuria - Patient Data Vitals - Most Recent: Last Vital Signs Temp 97.5 F 03/21/21 12:00 Pulse 91 03/21/21 12:00 Resp 16 03/21/21 12:00 BP 122/63 03/21/21 12:00 Pulse Ox 94 L 03/21/21 12:00 Weight - Most Recent: 103.419 kg I&O - Last 24 Hours: Intake & Output 03/21/21 03/21/21 03/21/21 06:59 14:59 22:59 Intake Total 650 Output Total 850 Balance -200 Lab Results Last 24 Hours: Laboratory Results - last 24 hr 03/21/21 03/21/21 Range/Units 05:05 05:05 WBC 6.75 (4.0-11.0) K/uL RBC 3.25 L (4.50-5.90) M/uL Hgb 11.4 L (13.0-17.0) g/dL Hct 34.8 L (38.0-50.0) % MCV 107.1 H (80.0-98.0) fL MCH 35.1 H (27.0-32.0) pg MCHC 32.8 (31.0-37.0) g/dL RDW Std Deviation 63.3 H (28.0-62.0) fl RDW Coeff of Briseida 16 H (11.0-15.0) % Plt Count 132 L (150-400) K/uL MPV 11.00 (7.40-12.00) fL Neut % (Auto) 61.2 (48.0-80.0) % Lymph % (Auto) 25.3 (16.0-40.0) % Sutter % (Auto) 11.0 (0.0-15.0) % Eos % (Auto) 1.6 (0.0-7.0) % Baso % (Auto) 0.9 (0.0-1.5) % Neut # (Auto) 4.1 (1.4-5.7) K/uL Lymph # (Auto) 1.7 (0.6-2.4) K/uL Sutter # (Auto) 0.7 (0.0-0.8) K/uL Eos # (Auto) 0.1 (0.0-0.7) K/uL Baso # (Auto) 0.1 (0.0-0.1) K/uL Nucleated RBC % 0.0 /100WBC Nucleated RBCs # 0 K/uL Sodium 136 (136-148) mmol/L Potassium 3.7 (3.5-5.1) mmol/L Chloride 98 (98-107) mmol/L Carbon Dioxide 33.0 H (21.0-32.0) mmol/L BUN 5 L (7.0-18.0) mg/dL Creatinine 1.0 (0.8-1.3) mg/dL Est Cr Clr Drug Dosing 121.76 mL/min Estimated GFR (MDRD) > 60.0 ml/min Glucose 86 (74-106) mg/dL Calcium 7.2 L (8.5-10.1) mg/dL Phosphorus 3.2 (2.6-4.7) mg/dL Magnesium 1.6 L (1.8-2.4) mg/dL Total Bilirubin 4.5 H (0.2-1.0) mg/dL AST 71 H (15-37) IU/L ALT 21 (14-63) IU/L Alkaline Phosphatase 84 (46-116) U/L Total Protein 7.8 (6.4-8.2) g/dL Albumin 1.8 L (3.4-5.0) g/dL Globulin 6.0 H (2.6-4.0) g/dL Albumin/Globulin Ratio 0.3 L (0.9-1.6) Froilan Results Last 24 Hours: Microbiology 03/17/21 05:18 Aerobic Blood Culture - Preliminary Blood - Venous - Lab Draw NO GROWTH AFTER 4 DAYS Anaerobic Blood Culture - Preliminary NO GROWTH AFTER 4 DAYS 03/16/21 23:35 Aerobic Blood Culture - Preliminary Blood - Venous NO GROWTH AFTER 4 DAYS Anaerobic Blood Culture - Preliminary NO GROWTH AFTER 4 DAYS Med Orders - Current: Current Medications Acetaminophen (Acetaminophen 325 Mg Tab) 325 mg PO Q6H PRN PRN Reason: Pain Last Admin: 03/18/21 04:01 Dose: 325 mg Documented by: Albuterol/Ipratropium (Albuterol/Ipratropium 3.0-0.5 Mg/3 Ml Neb Soln) 3 ml NEB Q4HRRT PRN PRN Reason: Shortness Of Breath/wheezing Furosemide (Furosemide 40 Mg/4 Ml Vial) 40 mg IVPUSH BID [facility] Last Admin: 03/21/21 09:34 Dose: 40 mg Documented by: Pantoprazole Sodium 40 mg/ (Sodium Chloride) 10 mls @ 300 mls/hr IV DAILY [facility] Last Admin: 03/21/21 09:33 Dose: 300 mls/hr Documented by: Piperacillin Sod/Tazobactam (Sod 3.375 gm/ Sodium Chloride) 50 mls @ 100 mls/hr IV Q8H [facility] Last Admin: 03/21/21 13:00 Dose: 100 mls/hr Documented by: Magnesium Sulfate 4 gm/ Premix 100 mls @ 50 mls/hr IV ONETIME ONE Stop: 03/21/21 16:41 Lactulose (Lactulose Soln 10 Gm/15 Ml 15 Ml Ud Cup) 10 gm PO BID [facility] Last Admin: 03/21/21 09:34 Dose: 10 gm Documented by: Lorazepam (Lorazepam 2 Mg/Ml Sdv) 0 mg IVPUSH Q4H PRN; Protocol PRN Reason: Withdrawal Symptoms Ondansetron HCl (Ondansetron 4 Mg/2 Ml Sdv) 4 mg IVPUSH Q4H PRN PRN Reason: Nausea/Vomiting Oxycodone HCl (Oxycodone 5 Mg Tab) 5 mg PO Q6H PRN PRN Reason: Pain Last Admin: 03/21/21 11:06 Dose: 5 mg Documented by: Potassium Chloride (Potassium Chloride 20 Meq Tab.Er) 40 meq PO BID [facility] Last Admin: 03/21/21 09:34 Dose: 40 meq Documented by: Spironolactone (Spironolactone 25 Mg Tab) 25 mg PO DAILY [facility] Last Admin: 03/21/21 09:34 Dose: 25 mg Documented by: Thiamine HCl (Thiamine 100 Mg Tab) 100 mg PO BEDTIME [facility] Last Admin: 03/20/21 20:08 Dose: 100 mg Documented by: Discontinued Medications Furosemide (Furosemide 40 Mg/4 Ml Vial) 40 mg IVPUSH NOW ONE Stop: 03/19/21 09:53 Last Admin: 03/19/21 10:51 Dose: 40 mg Documented by: Sodium Chloride (Normal Saline) 1,000 mls @ 999 mls/hr IV ASDIRECTED [facility] Last Admin: 03/17/21 00:28 Dose: 999 mls/hr Documented by: Piperacillin Sod/Tazobactam (Sod 4.5 gm/ Sodium Chloride) 100 mls @ 100 mls/hr IV ONETIME ONE Stop: 03/17/21 05:33 Last Admin: 03/17/21 04:42 Dose: 100 mls/hr Documented by: Pantoprazole Sodium 80 mg/ (Sodium Chloride) 20 mls @ 420 mls/hr IVPUSH ONETIME ONE Stop: 03/17/21 05:17 Last Admin: 03/17/21 06:26 Dose: 420 mls/hr Documented by: Lactated Ringer's (Ringers, Lactated) 1,000 mls @ 125 mls/hr IV ASDIRECTED [facility] Stop: 03/17/21 23:00 Last Admin: 03/17/21 17:25 Dose: 125 mls/hr Documented by: Magnesium Sulfate 2 gm/ Premix 50 mls @ 200 mls/hr IV ONETIME ONE Stop: 03/17/21 20:25 Last Admin: 03/17/21 20:17 Dose: 200 mls/hr Documented by: Potassium Chloride/Sodium Chloride (Normal Saline With 40 Meq Kcl) 1,000 mls @ 250 mls/hr IV ONETIME ONE Stop: 03/18/21 13:44 Last Admin: 03/18/21 10:15 Dose: 250 mls/hr Documented by: Magnesium Sulfate (Magnesium Sulfate In Water 2 Gm/50 Ml) 50 mls @ 50 mls/hr IV NOW ONE Stop: 03/19/21 01:29 Last Admin: 03/19/21 00:52 Dose: 50 mls/hr Documented by: Magnesium Sulfate 2 gm/ Premix 50 mls @ 25 mls/hr IV ONETIME ONE Stop: 03/20/21 12:44 Last Admin: 03/20/21 10:49 Dose: 25 mls/hr Documented by: Iopamidol (Iopamidol 755 Mg/Ml 500 Ml Multipack Bottle) 100 ml IVPUSH ONETIME STA Stop: 03/17/21 00:23 Last Admin: 03/17/21 00:23 Dose: 100 ml Documented by: Magnesium Oxide (Magnesium Oxide 400 Mg Tab) 800 mg PO ONETIME ONE Stop: 03/18/21 08:29 Last Admin: 03/18/21 09:58 Dose: 800 mg Documented by: Magnesium Sulfate (Magnesium Sulfate/Water 2 Gm/50 Ml Premix Bag) 2 gm IV ONETIME ONE Stop: 03/19/21 00:20 Oxycodone HCl (Oxycodone 5 Mg Tab) 5 mg PO Q8H PRN PRN Reason: Pain Last Admin: 03/18/21 13:16 Dose: 5 mg Documented by: Phytonadione (Phytonadione 5 Mg Tab) 5 mg PO ONETIME ONE Stop: 03/17/21 05:16 Last Admin: 03/17/21 07:34 Dose: Not Given Documented by: Phytonadione (Phytonadione 10 Mg/1 Ml Amp) 5 mg PO ONETIME ONE Stop: 03/17/21 07:16 Last Admin: 03/17/21 07:32 Dose: 5 mg Documented by: Phytonadione (Phytonadione 10 Mg/1 Ml Amp) 5 mg PO ONETIME ONE Stop: 03/18/21 09:01 Potassium Chloride (Potassium Chloride 20 Meq Tab.Er) 40 meq PO ONETIME ONE Stop: 03/18/21 08:27 Last Admin: 03/18/21 09:57 Dose: 40 meq Documented by: Potassium Chloride (Potassium Chloride 20 Meq Tab.Er) 40 meq PO ONETIME ONE Stop: 03/18/21 11:01 Last Admin: 03/18/21 11:37 Dose: Not Given Documented by: Potassium Chloride (Potassium Chloride 20 Meq Tab.Er) 40 meq PO ONETIME ONE Stop: 03/18/21 21:01 Last Admin: 03/18/21 21:01 Dose: 40 meq Documented by: Potassium Chloride (Potassium Chloride 20 Meq Tab.Er) 40 meq PO ONETIME ONE Stop: 03/19/21 00:20 Last Admin: 03/19/21 01:21 Dose: Not Given Documented by: Sodium Phosphate (Phosphorus #1 250 Mg Tab) 250 mg PO QID [facility] Stop: 03/21/21 09:00 Last Admin: 03/21/21 05:28 Dose: 250 mg Documented by: - Exam General: Alert, Oriented, Cooperative HEENT: Other (Dry mucous membranes). No: Scleral Icterus Neck: No: Lymphadenopathy Lungs: Clear to Auscultation, Normal Respiratory Effort Cardiovascular: Regular Rate, Regular Rhythm GI/Abdominal Exam: Distended, Tender - Patient Data Lab Results Last 24 hrs: Laboratory Results - last 24 hr 03/21/21 03/21/21 Range/Units 05:05 05:05 WBC 6.75 (4.0-11.0) K/uL RBC 3.25 L (4.50-5.90) M/uL Hgb 11.4 L (13.0-17.0) g/dL Hct 34.8 L (38.0-50.0) % MCV 107.1 H (80.0-98.0) fL MCH 35.1 H (27.0-32.0) pg MCHC 32.8 (31.0-37.0) g/dL RDW Std Deviation 63.3 H (28.0-62.0) fl RDW Coeff of Briseida 16 H (11.0-15.0) % Plt Count 132 L (150-400) K/uL MPV 11.00 (7.40-12.00) fL Neut % (Auto) 61.2 (48.0-80.0) % Lymph % (Auto) 25.3 (16.0-40.0) % Sutter % (Auto) 11.0 (0.0-15.0) % Eos % (Auto) 1.6 (0.0-7.0) % Baso % (Auto) 0.9 (0.0-1.5) % Neut # (Auto) 4.1 (1.4-5.7) K/uL Lymph # (Auto) 1.7 (0.6-2.4) K/uL Sutter # (Auto) 0.7 (0.0-0.8) K/uL Eos # (Auto) 0.1 (0.0-0.7) K/uL Baso # (Auto) 0.1 (0.0-0.1) K/uL Nucleated RBC % 0.0 /100WBC Nucleated RBCs # 0 K/uL Sodium 136 (136-148) mmol/L Potassium 3.7 (3.5-5.1) mmol/L Chloride 98 (98-107) mmol/L Carbon Dioxide 33.0 H (21.0-32.0) mmol/L BUN 5 L (7.0-18.0) mg/dL Creatinine 1.0 (0.8-1.3) mg/dL Est Cr Clr Drug Dosing 121.76 mL/min Estimated GFR (MDRD) > 60.0 ml/min Glucose 86 (74-106) mg/dL Calcium 7.2 L (8.5-10.1) mg/dL Phosphorus 3.2 (2.6-4.7) mg/dL Magnesium 1.6 L (1.8-2.4) mg/dL Total Bilirubin 4.5 H (0.2-1.0) mg/dL AST 71 H (15-37) IU/L ALT 21 (14-63) IU/L Alkaline Phosphatase 84 (46-116) U/L Total Protein 7.8 (6.4-8.2) g/dL Albumin 1.8 L (3.4-5.0) g/dL Globulin 6.0 H (2.6-4.0) g/dL Albumin/Globulin Ratio 0.3 L (0.9-1.6) Result Diagrams: 03/21/21 05:05 03/21/21 05:05 Froilan Results Last 24 hrs: Microbiology 03/17/21 05:18 Aerobic Blood Culture - Preliminary Blood - Venous - Lab Draw NO GROWTH AFTER 4 DAYS Anaerobic Blood Culture - Preliminary NO GROWTH AFTER 4 DAYS 03/16/21 23:35 Aerobic Blood Culture - Preliminary Blood - Venous NO GROWTH AFTER 4 DAYS Anaerobic Blood Culture - Preliminary NO GROWTH AFTER 4 DAYS Sepsis Event Note - Evaluation Sepsis Screening Result: No Definite Risk - Focused Exam Vital Signs: Vital Signs Temp Pulse Resp BP Pulse Ox 03/21/21 12:00 97.5 F 91 16 122/63 94 L 03/21/21 08:00 97.2 F 91 16 112/62 91 L 03/21/21 04:33 97.2 F 90 17 110/63 93 L - Problem List & Annotations (1) Alcoholic cirrhosis SNOMED Code(s): 348038916 Code(s): K70.30 - ALCOHOLIC CIRRHOSIS OF LIVER WITHOUT ASCITES Status: Acute Current Visit: Yes (2) Alcohol abuse SNOMED Code(s): 72074638 Code(s): F10.10 - ALCOHOL ABUSE, UNCOMPLICATED Status: Acute Current Visit: Yes (3) Ascites SNOMED Code(s): 151647097 Code(s): R18.8 - OTHER ASCITES Status: Acute Current Visit: Yes - Problem List Review Problem List Initiated/Reviewed/Updated: Yes - My Orders Last 24 Hours: My Active Orders 03/21/21 15:01 LIPASE [CHEM] Routine 03/21/21 15:06 CTA Abdomen W & W/O Contrast [Ang Abdomen] [CT] Routine 03/22/21 05:11 CBC WITH AUTO DIFF [HEME] AM CMP [COMPREHENSIVE METABOLIC PN,CMP] [CHEM] AM 03/23/21 05:11 CBC WITH AUTO DIFF [HEME] AM CMP [COMPREHENSIVE METABOLIC PN,CMP] [CHEM] AM 03/24/21 05:11 CBC WITH AUTO DIFF [HEME] AM CMP [COMPREHENSIVE METABOLIC PN,CMP] [CHEM] AM - Plan Plan:: 1. Alcoholic cirrhosis with ascites -The patient initially had a paracentesis procedure done this past Sunday which revealed 2 L of fluid, we are arranging an additional paracentesis procedure with the interventional radiologist team here in [place]. If they are able to fit this patient into their schedule the procedure will happen eit her tomorrow or Sunday, March 22 or . If this is not an option the patient may need to be transferred to [place] or [place] to have the procedure done. -Due to ongoing pain in the patient's abdomen we have ordered a CT abdomen with and without contrast for better visualization of the abdominal structures including the pancreas. -We have ordered a lipase level, and will continue with daily CBC and CMP draws to give us information about blood parameters, electrolytes, LFTs, RFT's, and bi lirubin. -We will continue the patient on IV Zosyn, lactulose, spironolactone, Protonix, Zofran, thiamine, and Lasix. -We will continue with CIWA protocol for withdrawal symptoms with Ativan. -For pain we will continue with oxycodone 5 mg every 6 hours as needed. <Cehl Shoemaker - Last Filed: 03/22/21 16:40> - Patient Data Vitals - Most Recent: Last Vital Signs Temp 36.4 C 03/22/21 12:00 Pulse 100 03/22/21 12:00 Resp 17 03/22/21 12:00 BP 110/80 03/22/21 12:00 Pulse Ox 93 L 03/22/21 12:00 I&O - Last 24 Hours: Intake & Output 03/22/21 03/22/21 03/22/21 06:59 14:59 22:59 Intake Total 340 Balance 340 Lab Results Last 24 Hours: Laboratory Results - last 24 hr 03/18/21 03/18/21 03/18/21 Range/Units 05:50 05:50 05:50 WBC (4.0-11.0) K/uL RBC (4.50-5.90) M/uL Hgb (13.0-17.0) g/dL Hct (38.0-50.0) % MCV (80.0-98.0) fL MCH (27.0-32.0) pg MCHC (31.0-37.0) g/dL RDW Std Deviation (28.0-62.0) fl RDW Coeff of Briseida (11.0-15.0) % Plt Count (150-400) K/uL MPV (7.40-12.00) fL Neut % (Auto) (48.0-80.0) % Lymph % (Auto) (16.0-40.0) % Sutter % (Auto) (0.0-15.0) % Eos % (Auto) (0.0-7.0) % Baso % (Auto) (0.0-1.5) % Neut # (Auto) (1.4-5.7) K/uL Lymph # (Auto) (0.6-2.4) K/uL Sutter # (Auto) (0.0-0.8) K/uL Eos # (Auto) (0.0-0.7) K/uL Baso # (Auto) (0.0-0.1) K/uL Nucleated RBC % /100WBC Nucleated RBCs # K/uL Sodium (136-148) mmol/L Potassium (3.5-5.1) mmol/L Chloride (98-107) mmol/L Carbon Dioxide (21.0-32.0) mmol/L BUN (7.0-18.0) mg/dL Creatinine (0.8-1.3) mg/dL Est Cr Clr Drug Dosing mL/min Estimated GFR (MDRD) ml/min Glucose (74-106) mg/dL Calcium (8.5-10.1) mg/dL Total Bilirubin (0.2-1.0) mg/dL AST (15-37) IU/L ALT (14-63) IU/L Alkaline Phosphatase (46-116) U/L Total Protein (6.4-8.2) g/dL Albumin (3.4-5.0) g/dL Globulin (2.6-4.0) g/dL Albumin/Globulin Ratio (0.9-1.6) Fluid Type Fluid Color Fluid Appearance Fluid WBC /uL Fluid RBC /uL Fluid Mononuclear Cell % Fl Polymorphonucl Cell % Fluid Glucose mg/dL Fluid Total Protein g/dL Fluid Albumin g/dL Fluid LDH U/L Fluid Amylase U/L Fluid Triglycerides mg/dL PETAR Screen Negative (Negative) Double Strand DNA Ab 5 (0-9) IU/mL Anti-Smooth Muscle Ab 18 (0-19) Units 03/22/21 03/22/21 03/22/21 Range/Units 05:30 05:30 14:05 WBC 7.25 (4.0-11.0) K/uL RBC 3.31 L (4.50-5.90) M/uL Hgb 11.8 L (13.0-17.0) g/dL Hct 35.5 L (38.0-50.0) % MCV 107.3 H (80.0-98.0) fL MCH 35.6 H (27.0-32.0) pg MCHC 33.2 (31.0-37.0) g/dL RDW Std Deviation 62.9 H (28.0-62.0) fl RDW Coeff of Briseida 16 H (11.0-15.0) % Plt Count 122 L (150-400) K/uL MPV 10.80 (7.40-12.00) fL Neut % (Auto) 60.3 (48.0-80.0) % Lymph % (Auto) 24.8 (16.0-40.0) % Sutter % (Auto) 12.7 (0.0-15.0) % Eos % (Auto) 1.2 (0.0-7.0) % Baso % (Auto) 1.0 (0.0-1.5) % Neut # (Auto) 4.4 (1.4-5.7) K/uL Lymph # (Auto) 1.8 (0.6-2.4) K/uL Sutter # (Auto) 0.9 H (0.0-0.8) K/uL Eos # (Auto) 0.1 (0.0-0.7) K/uL Baso # (Auto) 0.1 (0.0-0.1) K/uL Nucleated RBC % 0.0 /100WBC Nucleated RBCs # 0 K/uL Sodium 136 (136-148) mmol/L Potassium 4.5 (3.5-5.1) mmol/L Chloride 99 (98-107) mmol/L Carbon Dioxide 33.3 H (21.0-32.0) mmol/L BUN 5 L (7.0-18.0) mg/dL Creatinine 1.1 (0.8-1.3) mg/dL Est Cr Clr Drug Dosing 110.69 mL/min Estimated GFR (MDRD) > 60.0 ml/min Glucose 97 (74-106) mg/dL Calcium 7.6 L (8.5-10.1) mg/dL Total Bilirubin 4.7 H (0.2-1.0) mg/dL AST 70 H (15-37) IU/L ALT 20 (14-63) IU/L Alkaline Phosphatase 83 (46-116) U/L Total Protein 8.0 (6.4-8.2) g/dL Albumin 1.9 L (3.4-5.0) g/dL Globulin 6.1 H (2.6-4.0) g/dL Albumin/Globulin Ratio 0.3 L (0.9-1.6) Fluid Type PER Fluid Color YELLOW Fluid Appearance CLEAR Fluid WBC 158 /uL Fluid RBC 0 /uL Fluid Mononuclear Cell 82 % Fl Polymorphonucl Cell 18 % Fluid Glucose 109 mg/dL Fluid Total Protein 1.6 g/dL Fluid Albumin 0.4 g/dL Fluid LDH 38 U/L Fluid Amylase 18 U/L Fluid Triglycerides 21 mg/dL PETAR Screen (Negative) Double Strand DNA Ab (0-9) IU/mL Anti-Smooth Muscle Ab (0-19) Units Froilan Results Last 24 Hours: Microbiology 03/17/21 02:15 Miscellaneous Reference Culture - Final Peritoneal Fluid Gram Stain - Final 03/17/21 05:18 Aerobic Blood Culture - Final Blood - Venous - Lab Draw NO GROWTH AFTER 5 DAYS Anaerobic Blood Culture - Final NO GROWTH AFTER 5 DAYS 03/16/21 23:35 Aerobic Blood Culture - Final Blood - Venous NO GROWTH AFTER 5 DAYS Anaerobic Blood Culture - Final NO GROWTH AFTER 5 DAYS Med Orders - Current: Current Medications Acetaminophen (Acetaminophen 325 Mg Tab) 325 mg PO Q6H PRN PRN Reason: Pain Last Admin: 03/18/21 04:01 Dose: 325 mg Documented by: Albuterol/Ipratropium (Albuterol/Ipratropium 3.0-0.5 Mg/3 Ml Neb Soln) 3 ml NEB Q4HRRT PRN PRN Reason: Shortness Of Breath/wheezing Furosemide (Furosemide 40 Mg/4 Ml Vial) 40 mg IVPUSH BID [facility] Last Admin: 03/22/21 09:03 Dose: 40 mg Documented by: Pantoprazole Sodium 40 mg/ (Sodium Chloride) 10 mls @ 300 mls/hr IV DAILY [facility] Last Admin: 03/22/21 09:04 Dose: 300 mls/hr Documented by: Piperacillin Sod/Tazobactam (Sod 3.375 gm/ Sodium Chloride) 50 mls @ 100 mls/hr IV Q8H [facility] Last Admin: 03/22/21 12:23 Dose: 100 mls/hr Documented by: Lactulose (Lactulose Soln 10 Gm/15 Ml 15 Ml Ud Cup) 10 gm PO BID [facility] Last Admin: 03/22/21 12:43 Dose: Not Given Documented by: Lorazepam (Lorazepam 2 Mg/Ml Sdv) 0 mg IVPUSH Q4H PRN; Protocol PRN Reason: Withdrawal Symptoms Ondansetron HCl (Ondansetron 4 Mg/2 Ml Sdv) 4 mg IVPUSH Q4H PRN PRN Reason: Nausea/Vomiting Oxycodone HCl (Oxycodone 5 Mg Tab) 5 mg PO Q6H PRN PRN Reason: Pain Last Admin: 03/22/21 15:14 Dose: 5 mg Documented by: Potassium Chloride (Potassium Chloride 20 Meq Tab.Er) 40 meq PO BID [facility] Last Admin: 03/22/21 12:43 Dose: Not Given Documented by: Spironolactone (Spironolactone 25 Mg Tab) 25 mg PO DAILY [facility] Last Admin: 03/22/21 09:02 Dose: 25 mg Documented by: Thiamine HCl (Thiamine 100 Mg Tab) 100 mg PO BEDTIME [facility] Last Admin: 03/21/21 20:50 Dose: 100 mg Documented by: Discontinued Medications Furosemide (Furosemide 40 Mg/4 Ml Vial) 40 mg IVPUSH NOW ONE Stop: 03/19/21 09:53 Last Admin: 03/19/21 10:51 Dose: 40 mg Documented by: Sodium Chloride (Normal Saline) 1,000 mls @ 999 mls/hr IV ASDIRECTED [facility] Last Admin: 03/17/21 00:28 Dose: 999 mls/hr Documented by: Piperacillin Sod/Tazobactam (Sod 4.5 gm/ Sodium Chloride) 100 mls @ 100 mls/hr IV ONETIME ONE Stop: 03/17/21 05:33 Last Admin: 03/17/21 04:42 Dose: 100 mls/hr Documented by: Pantoprazole Sodium 80 mg/ (Sodium Chloride) 20 mls @ 420 mls/hr IVPUSH ONETIME ONE Stop: 03/17/21 05:17 Last Admin: 03/17/21 06:26 Dose: 420 mls/hr Documented by: Lactated Ringer's (Ringers, Lactated) 1,000 mls @ 125 mls/hr IV ASDIRECTED [facility] Stop: 03/17/21 23:00 Last Admin: 03/17/21 17:25 Dose: 125 mls/hr Documented by: Magnesium Sulfate 2 gm/ Premix 50 mls @ 200 mls/hr IV ONETIME ONE Stop: 03/17/21 20:25 Last Admin: 03/17/21 20:17 Dose: 200 mls/hr Documented by: Potassium Chloride/Sodium Chloride (Normal Saline With 40 Meq Kcl) 1,000 mls @ 250 mls/hr IV ONETIME ONE Stop: 03/18/21 13:44 Last Admin: 03/18/21 10:15 Dose: 250 mls/hr Documented by: Magnesium Sulfate (Magnesium Sulfate In Water 2 Gm/50 Ml) 50 mls @ 50 mls/hr IV NOW ONE Stop: 03/19/21 01:29 Last Admin: 03/19/21 00:52 Dose: 50 mls/hr Documented by: Magnesium Sulfate 2 gm/ Premix 50 mls @ 25 mls/hr IV ONETIME ONE Stop: 03/20/21 12:44 Last Admin: 03/20/21 10:49 Dose: 25 mls/hr Documented by: Magnesium Sulfate 4 gm/ Premix 100 mls @ 50 mls/hr IV ONETIME ONE Stop: 03/21/21 16:41 Last Admin: 03/21/21 15:11 Dose: 50 mls/hr Documented by: Iopamidol (Iopamidol 755 Mg/Ml 500 Ml Multipack Bottle) 100 ml IVPUSH ONETIME STA Stop: 03/17/21 00:23 Last Admin: 03/17/21 00:23 Dose: 100 ml Documented by: Iopamidol (Iopamidol 755 Mg/Ml 500 Ml Multipack Bottle) 100 ml IVPUSH ONETIME STA Stop: 03/21/21 15:58 Last Admin: 03/22/21 00:25 Dose: Not Given Documented by: Iopamidol (Iopamidol 755 Mg/Ml 500 Ml Multipack Bottle) 100 ml IVPUSH ONETIME STA Stop: 03/21/21 15:59 Last Admin: 03/21/21 15:58 Dose: 100 ml Documented by: Magnesium Oxide (Magnesium Oxide 400 Mg Tab) 800 mg PO ONETIME ONE Stop: 03/18/21 08:29 Last Admin: 03/18/21 09:58 Dose: 800 mg Documented by: Magnesium Sulfate (Magnesium Sulfate/Water 2 Gm/50 Ml Premix Bag) 2 gm IV ONETIME ONE Stop: 03/19/21 00:20 Oxycodone HCl (Oxycodone 5 Mg Tab) 5 mg PO Q8H PRN PRN Reason: Pain Last Admin: 03/18/21 13:16 Dose: 5 mg Documented by: Phytonadione (Phytonadione 5 Mg Tab) 5 mg PO ONETIME ONE Stop: 03/17/21 05:16 Last Admin: 03/17/21 07:34 Dose: Not Given Documented by: Phytonadione (Phytonadione 10 Mg/1 Ml Amp) 5 mg PO ONETIME ONE Stop: 03/17/21 07:16 Last Admin: 03/17/21 07:32 Dose: 5 mg Documented by: Phytonadione (Phytonadione 10 Mg/1 Ml Amp) 5 mg PO ONETIME ONE Stop: 03/18/21 09:01 Potassium Chloride (Potassium Chloride 20 Meq Tab.Er) 40 meq PO ONETIME ONE Stop: 03/18/21 08:27 Last Admin: 03/18/21 09:57 Dose: 40 meq Documented by: Potassium Chloride (Potassium Chloride 20 Meq Tab.Er) 40 meq PO ONETIME ONE Stop: 03/18/21 11:01 Last Admin: 03/18/21 11:37 Dose: Not Given Documented by: Potassium Chloride (Potassium Chloride 20 Meq Tab.Er) 40 meq PO ONETIME ONE Stop: 03/18/21 21:01 Last Admin: 03/18/21 21:01 Dose: 40 meq Documented by: Potassium Chloride (Potassium Chloride 20 Meq Tab.Er) 40 meq PO ONETIME ONE Stop: 03/19/21 00:20 Last Admin: 03/19/21 01:21 Dose: Not Given Documented by: Sodium Phosphate (Phosphorus #1 250 Mg Tab) 250 mg PO QID GEORGE Stop: 03/21/21 09:00 Last Admin: 03/21/21 05:28 Dose: 250 mg Documented by: - Patient Data Lab Results Last 24 hrs: Laboratory Results - last 24 hr 10/29/21 10/29/21 10/29/21 Range/Units 05:50 05:50 05:50 WBC (4.0-11.0) K/uL RBC (4.50-5.90) M/uL Hgb (13.0-17.0) g/dL Hct (38.0-50.0) % MCV (80.0-98.0) fL MCH (27.0-32.0) pg MCHC (31.0-37.0) g/dL RDW Std Deviation (28.0-62.0) fl RDW Coeff of Briseida (11.0-15.0) % Plt Count (150-400) K/uL MPV (7.40-12.00) fL Neut % (Auto) (48.0-80.0) % Lymph % (Auto) (16.0-40.0) % Sutter % (Auto) (0.0-15.0) % Eos % (Auto) (0.0-7.0) % Baso % (Auto) (0.0-1.5) % Neut # (Auto) (1.4-5.7) K/uL Lymph # (Auto) (0.6-2.4) K/uL Sutter # (Auto) (0.0-0.8) K/uL Eos # (Auto) (0.0-0.7) K/uL Baso # (Auto) (0.0-0.1) K/uL Nucleated RBC % /100WBC Nucleated RBCs # K/uL Sodium (136-148) mmol/L Potassium (3.5-5.1) mmol/L Chloride (98-107) mmol/L Carbon Dioxide (21.0-32.0) mmol/L BUN (7.0-18.0) mg/dL Creatinine (0.8-1.3) mg/dL Est Cr Clr Drug Dosing mL/min Estimated GFR (MDRD) ml/min Glucose (74-106) mg/dL Calcium (8.5-10.1) mg/dL Total Bilirubin (0.2-1.0) mg/dL AST (15-37) IU/L ALT (14-63) IU/L Alkaline Phosphatase (46-116) U/L Total Protein (6.4-8.2) g/dL Albumin (3.4-5.0) g/dL Globulin (2.6-4.0) g/dL Albumin/Globulin Ratio (0.9-1.6) Fluid Type Fluid Color Fluid Appearance Fluid WBC /uL Fluid RBC /uL Fluid Mononuclear Cell % Fl Polymorphonucl Cell % Fluid Glucose mg/dL Fluid Total Protein g/dL Fluid Albumin g/dL Fluid LDH U/L Fluid Amylase U/L Fluid Triglycerides mg/dL PETAR Screen Negative (Negative) Double Strand DNA Ab 5 (0-9) IU/mL Anti-Smooth Muscle Ab 18 (0-19) Units 03/22/21 03/22/21 03/22/21 Range/Units 05:30 05:30 14:05 WBC 7.25 (4.0-11.0) K/uL RBC 3.31 L (4.50-5.90) M/uL Hgb 11.8 L (13.0-17.0) g/dL Hct 35.5 L (38.0-50.0) % MCV 107.3 H (80.0-98.0) fL MCH 35.6 H (27.0-32.0) pg MCHC 33.2 (31.0-37.0) g/dL RDW Std Deviation 62.9 H (28.0-62.0) fl RDW Coeff of Briseida 16 H (11.0-15.0) % Plt Count 122 L (150-400) K/uL MPV 10.80 (7.40-12.00) fL Neut % (Auto) 60.3 (48.0-80.0) % Lymph % (Auto) 24.8 (16.0-40.0) % Sutter % (Auto) 12.7 (0.0-15.0) % Eos % (Auto) 1.2 (0.0-7.0) % Baso % (Auto) 1.0 (0.0-1.5) % Neut # (Auto) 4.4 (1.4-5.7) K/uL Lymph # (Auto) 1.8 (0.6-2.4) K/uL Sutter # (Auto) 0.9 H (0.0-0.8) K/uL Eos # (Auto) 0.1 (0.0-0.7) K/uL Baso # (Auto) 0.1 (0.0-0.1) K/uL Nucleated RBC % 0.0 /100WBC Nucleated RBCs # 0 K/uL Sodium 136 (136-148) mmol/L Potassium 4.5 (3.5-5.1) mmol/L Chloride 99 (98-107) mmol/L Carbon Dioxide 33.3 H (21.0-32.0) mmol/L BUN 5 L (7.0-18.0) mg/dL Creatinine 1.1 (0.8-1.3) mg/dL Est Cr Clr Drug Dosing 110.69 mL/min Estimated GFR (MDRD) > 60.0 ml/min Glucose 97 (74-106) mg/dL Calcium 7.6 L (8.5-10.1) mg/dL Total Bilirubin 4.7 H (0.2-1.0) mg/dL AST 70 H (15-37) IU/L ALT 20 (14-63) IU/L Alkaline Phosphatase 83 (46-116) U/L Total Protein 8.0 (6.4-8.2) g/dL Albumin 1.9 L (3.4-5.0) g/dL Globulin 6.1 H (2.6-4.0) g/dL Albumin/Globulin Ratio 0.3 L (0.9-1.6) Fluid Type PER Fluid Color YELLOW Fluid Appearance CLEAR Fluid WBC 158 /uL Fluid RBC 0 /uL Fluid Mononuclear Cell 82 % Fl Polymorphonucl Cell 18 % Fluid Glucose 109 mg/dL Fluid Total Protein 1.6 g/dL Fluid Albumin 0.4 g/dL Fluid LDH 38 U/L Fluid Amylase 18 U/L Fluid Triglycerides 21 mg/dL PETAR Screen (Negative) Double Strand DNA Ab (0-9) IU/mL Anti-Smooth Muscle Ab (0-19) Units Result Diagrams: 03/22/21 05:30 03/22/21 05:30 [place] Results Last 24 hrs: Microbiology 03/17/21 02:15 Miscellaneous Reference Culture - Final Peritoneal Fluid Gram Stain - Final 03/17/21 05:18 Aerobic Blood Culture - Final Blood - Venous - Lab Draw NO GROWTH AFTER 5 DAYS Anaerobic Blood Culture - Final NO GROWTH AFTER 5 DAYS 03/16/21 23:35 Aerobic Blood Culture - Final Blood - Venous NO GROWTH AFTER 5 DAYS Anaerobic Blood Culture - Final NO GROWTH AFTER 5 DAYS Sepsis Event Note - Focused Exam Vital Signs: Vital Signs Temp Pulse Resp BP Pulse Ox Pulse Ox 03/22/21 12:00 36.4 C 100 17 110/80 93 L 03/22/21 08:00 36.2 C 97 15 120/66 93 L 03/22/21 06:00 94 L 94 L - My Orders Last 24 Hours: My Active Orders 03/22/21 Lunch Soft Diet [DIET] 03/22/21 14:22 CULTURE AFB AND SMEAR [MREF] Routine 03/22/21 14:32 BODY FLUID, TOTAL BILIRUBIN Routine 03/22/21 14:34 MISCELLANEOUS CULT [MREF] Routine - Plan Plan:: I have seen and evaluated the patient and agree with the residents note unless specified in my note
[2021-03-21] MEDS ORDERED: Iopamidol 755 MG/ML 500 ML Multipack Bottle IVPUSH STA ×2 (15:57→15:58)
--- NOTE | 2021-03-21 16:52 | CT ---
INDICATION: Abdominal distention. History of ascites. TECHNIQUE: Volumetric helical scanning of the abdomen and pelvis was performed with 100 cc of Isovue 370 contrast material IV. Coronal and sagittal reconstructions were obtained. COMPARISON: Abdomen/pelvis CT of 03/17/2021. FINDINGS: Large volume ascites is again demonstrated. A number of distended small bowel loops containing air-fluid levels are noted no transition point is evident. The colon is normal in caliber. The stomach is collapsed. A cirrhotic liver is again demonstrated. Gallstones are again noted. Bile ducts are unremarkable. Moderate splenomegaly is again demonstrated. The adrenal glands, kidneys and pancreas are negative. No lymphadenopathy is demonstrated. Prostate is unremarkable. A small left pleural effusion is demonstrated lung with passive atelectasis in the left lower lobe base. The heart size is normal. IMPRESSION: 1. Large volume ascites. 2. Distended small bowel loops containing air-fluid levels but without transition point. Question gastroenteritis. 3. Cirrhosis and portal venous hypertension manifested not only his ascites but moderate splenomegaly. 4. Cholelithiasis. 5. Small left pleural effusion and passive atelectasis in the left lower lobe base. Please note that all CT scans at this facility use dose modulation, iterative reconstruction, and/or weight-based dosing when appropriate to reduce radiation dose to as low as reasonably achievable. Dictated by Guicho Johnson MD @ 03/21/2021 4:50:34 PM (Electronically Signed)
[2021-03-21] MEDS: Thiamine 100 MG Tab PO SCH (20:50)
[2021-03-22] MEDS: Piperacillin/Tazobactam 3.375 GM in Sodium Chloride 0.9% 50 ML IV SCH ×3 (04:11→20:45)
[2021-03-22 07:24] LABS: BLOOD UREA NITROGEN,BUN 5 mg/dL (7.0-18.0); CARBON DIOXIDE,CO2 33.3 mmol/L (21.0-32.0); CHLORIDE,CL 99 mmol/L (98-107); GLUCOSE RANDOM 97 mg/dL (74-106); POTASSIUM,K 4.5 mmol/L (3.5-5.1); SODIUM,NA 136 mmol/L (136-148)
[2021-03-22] MEDS: Spironolactone 25 MG Tab PO SCH (09:02)
[2021-03-22] MEDS: oxyCODONE 5 MG Tab PO PRN ×3 (09:02→20:43)
[2021-03-22] MEDS: Furosemide 40 MG/4 ML VIAL IVPUSH SCH ×2 (09:03→20:45)
[2021-03-22] MEDS: Pantoprazole 40 MG in Sodium Chloride 0.9% 10 ML IV SCH (09:04)
--- NOTE | 2021-03-22 11:25 | PCM.PN ---
<Cristo Abarca - Last Filed: 03/22/21 11:20> - General Info Date of Service: 03/22/21 Subjective Update: The patient is a 40-year-old male, on day 6 of service, with a significant past medical history of obesity with a BMI over 30, who was admitted due to alcoholic cirrhosis with ascites. Upon interview with the patient today he continues to have diffuse abdominal pain in all quadrants which is 6 out of 10 in intensity, and gnawing and pressure-like in nature. He was complaining that he did not receive his pain medication this morning and as a result oxycodone 5 mg per oral route was given to him. I had a chance to speak with Cam from radiology today who has arranged a paracentesis procedure for the patient with the [facility] interventional radiologist Dr. Hall sometime after 1 PM on 03/22/2021. In the meantime we will keep the patient n.p.o. in prep for the procedure to remove his ascites fluid. He has no other complaints at this time. - Review of Systems General: Denies: Fever, Fatigue, Chills HEENT: Denies: Headaches, Sore Throat Pulmonary: Denies: Shortness of Breath, Cough Cardiovascular: Denies: Chest Pain, Palpitations Gastrointestinal: Reports: Abdominal Pain. Denies: Nausea, Vomiting Genitourinary: Denies: Dysuria - Patient Data Vitals - Most Recent: Last Vital Signs Temp 97.2 F 03/22/21 08:00 Pulse 97 03/22/21 08:00 Resp 15 03/22/21 08:00 BP 120/66 03/22/21 08:00 Pulse Ox 93 L 03/22/21 08:00 Weight - Most Recent: 103.419 kg I&O - Last 24 Hours: Intake & Output 03/21/21 03/22/21 03/22/21 22:59 06:59 14:59 Intake Total 1160 340 Output Total 800 Balance 360 340 Lab Results Last 24 Hours: Laboratory Results - last 24 hr 03/21/21 03/22/21 03/22/21 Range/Units 15:01 05:30 05:30 WBC 7.25 (4.0-11.0) K/uL RBC 3.31 L (4.50-5.90) M/uL Hgb 11.8 L (13.0-17.0) g/dL Hct 35.5 L (38.0-50.0) % MCV 107.3 H (80.0-98.0) fL MCH 35.6 H (27.0-32.0) pg MCHC 33.2 (31.0-37.0) g/dL RDW Std Deviation 62.9 H (28.0-62.0) fl RDW Coeff of Briseida 16 H (11.0-15.0) % Plt Count 122 L (150-400) K/uL MPV 10.80 (7.40-12.00) fL Neut % (Auto) 60.3 (48.0-80.0) % Lymph % (Auto) 24.8 (16.0-40.0) % [place] % (Auto) 12.7 (0.0-15.0) % Eos % (Auto) 1.2 (0.0-7.0) % Baso % (Auto) 1.0 (0.0-1.5) % Neut # (Auto) 4.4 (1.4-5.7) K/uL Lymph # (Auto) 1.8 (0.6-2.4) K/uL [place] # (Auto) 0.9 H (0.0-0.8) K/uL Eos # (Auto) 0.1 (0.0-0.7) K/uL Baso # (Auto) 0.1 (0.0-0.1) K/uL Nucleated RBC % 0.0 /100WBC Nucleated RBCs # 0 K/uL Sodium 136 (136-148) mmol/L Potassium 4.5 (3.5-5.1) mmol/L Chloride 99 (98-107) mmol/L Carbon Dioxide 33.3 H (21.0-32.0) mmol/L BUN 5 L (7.0-18.0) mg/dL Creatinine 1.1 (0.8-1.3) mg/dL Est Cr Clr Drug Dosing 110.69 mL/min Estimated GFR (MDRD) > 60.0 ml/min Glucose 97 (74-106) mg/dL Calcium 7.6 L (8.5-10.1) mg/dL Total Bilirubin 4.7 H (0.2-1.0) mg/dL AST 70 H (15-37) IU/L ALT 20 (14-63) IU/L Alkaline Phosphatase 83 (46-116) U/L Total Protein 8.0 (6.4-8.2) g/dL Albumin 1.9 L (3.4-5.0) g/dL Globulin 6.1 H (2.6-4.0) g/dL Albumin/Globulin Ratio 0.3 L (0.9-1.6) Lipase 334 (73-393) U/L Froilan Results Last 24 Hours: Microbiology 03/17/21 02:15 Miscellaneous Reference Culture - Final Peritoneal Fluid Gram Stain - Final 03/17/21 05:18 Aerobic Blood Culture - Final Blood - Venous - Lab Draw NO GROWTH AFTER 5 DAYS Anaerobic Blood Culture - Final NO GROWTH AFTER 5 DAYS 03/16/21 23:35 Aerobic Blood Culture - Final Blood - Venous NO GROWTH AFTER 5 DAYS Anaerobic Blood Culture - Final NO GROWTH AFTER 5 DAYS Med Orders - Current: Current Medications Acetaminophen (Acetaminophen 325 Mg Tab) 325 mg PO Q6H PRN PRN Reason: Pain Last Admin: 03/18/21 04:01 Dose: 325 mg Documented by: Albuterol/Ipratropium (Albuterol/Ipratropium 3.0-0.5 Mg/3 Ml Neb Soln) 3 ml NEB Q4HRRT PRN PRN Reason: Shortness Of Breath/wheezing Furosemide (Furosemide 40 Mg/4 Ml Vial) 40 mg IVPUSH BID [facility] Last Admin: 03/22/21 09:03 Dose: 40 mg Documented by: Pantoprazole Sodium 40 mg/ (Sodium Chloride) 10 mls @ 300 mls/hr IV DAILY [facility] Last Admin: 03/22/21 09:04 Dose: 300 mls/hr Documented by: Piperacillin Sod/Tazobactam (Sod 3.375 gm/ Sodium Chloride) 50 mls @ 100 mls/hr IV Q8H [facility] Last Admin: 03/22/21 04:11 Dose: 100 mls/hr Documented by: Lactulose (Lactulose Soln 10 Gm/15 Ml 15 Ml Ud Cup) 10 gm PO BID [facility] Last Admin: 03/21/21 20:49 Dose: 10 gm Documented by: Lorazepam (Lorazepam 2 Mg/Ml Sdv) 0 mg IVPUSH Q4H PRN; Protocol PRN Reason: Withdrawal Symptoms Ondansetron HCl (Ondansetron 4 Mg/2 Ml Sdv) 4 mg IVPUSH Q4H PRN PRN Reason: Nausea/Vomiting Oxycodone HCl (Oxycodone 5 Mg Tab) 5 mg PO Q6H PRN PRN Reason: Pain Last Admin: 03/22/21 09:02 Dose: 5 mg Documented by: Potassium Chloride (Potassium Chloride 20 Meq Tab.Er) 40 meq PO BID [facility] Last Admin: 03/21/21 20:49 Dose: 40 meq Documented by: Spironolactone (Spironolactone 25 Mg Tab) 25 mg PO DAILY [facility] Last Admin: 03/22/21 09:02 Dose: 25 mg Documented by: Thiamine HCl (Thiamine 100 Mg Tab) 100 mg PO BEDTIME [facility] Last Admin: 03/21/21 20:50 Dose: 100 mg Documented by: Discontinued Medications Furosemide (Furosemide 40 Mg/4 Ml Vial) 40 mg IVPUSH NOW ONE Stop: 03/19/21 09:53 Last Admin: 03/19/21 10:51 Dose: 40 mg Documented by: Sodium Chloride (Normal Saline) 1,000 mls @ 999 mls/hr IV ASDIRECTED [facility] Last Admin: 03/17/21 00:28 Dose: 999 mls/hr Documented by: Piperacillin Sod/Tazobactam (Sod 4.5 gm/ Sodium Chloride) 100 mls @ 100 mls/hr IV ONETIME ONE Stop: 03/17/21 05:33 Last Admin: 03/17/21 04:42 Dose: 100 mls/hr Documented by: Pantoprazole Sodium 80 mg/ (Sodium Chloride) 20 mls @ 420 mls/hr IVPUSH ONETIME ONE Stop: 03/17/21 05:17 Last Admin: 03/17/21 06:26 Dose: 420 mls/hr Documented by: Lactated Ringer's (Ringers, Lactated) 1,000 mls @ 125 mls/hr IV ASDIRECTED [facility] Stop: 03/17/21 23:00 Last Admin: 03/17/21 17:25 Dose: 125 mls/hr Documented by: Magnesium Sulfate 2 gm/ Premix 50 mls @ 200 mls/hr IV ONETIME ONE Stop: 03/17/21 20:25 Last Admin: 03/17/21 20:17 Dose: 200 mls/hr Documented by: Potassium Chloride/Sodium Chloride (Normal Saline With 40 Meq Kcl) 1,000 mls @ 250 mls/hr IV ONETIME ONE Stop: 03/18/21 13:44 Last Admin: 03/18/21 10:15 Dose: 250 mls/hr Documented by: Magnesium Sulfate (Magnesium Sulfate In Water 2 Gm/50 Ml) 50 mls @ 50 mls/hr IV NOW ONE Stop: 03/19/21 01:29 Last Admin: 03/19/21 00:52 Dose: 50 mls/hr Documented by: Magnesium Sulfate 2 gm/ Premix 50 mls @ 25 mls/hr IV ONETIME ONE Stop: 03/20/21 12:44 Last Admin: 03/20/21 10:49 Dose: 25 mls/hr Documented by: Magnesium Sulfate 4 gm/ Premix 100 mls @ 50 mls/hr IV ONETIME ONE Stop: 03/21/21 16:41 Last Admin: 03/21/21 15:11 Dose: 50 mls/hr Documented by: Iopamidol (Iopamidol 755 Mg/Ml 500 Ml Multipack Bottle) 100 ml IVPUSH ONETIME STA Stop: 03/17/21 00:23 Last Admin: 03/17/21 00:23 Dose: 100 ml Documented by: Iopamidol (Iopamidol 755 Mg/Ml 500 Ml Multipack Bottle) 100 ml IVPUSH ONETIME STA Stop: 03/21/21 15:58 Last Admin: 03/22/21 00:25 Dose: Not Given Documented by: Iopamidol (Iopamidol 755 Mg/Ml 500 Ml Multipack Bottle) 100 ml IVPUSH ONETIME STA Stop: 03/21/21 15:59 Last Admin: 03/21/21 15:58 Dose: 100 ml Documented by: Magnesium Oxide (Magnesium Oxide 400 Mg Tab) 800 mg PO ONETIME ONE Stop: 03/18/21 08:29 Last Admin: 03/18/21 09:58 Dose: 800 mg Documented by: Magnesium Sulfate (Magnesium Sulfate/Water 2 Gm/50 Ml Premix Bag) 2 gm IV ONETIME ONE Stop: 03/19/21 00:20 Oxycodone HCl (Oxycodone 5 Mg Tab) 5 mg PO Q8H PRN PRN Reason: Pain Last Admin: 03/18/21 13:16 Dose: 5 mg Documented by: Phytonadione (Phytonadione 5 Mg Tab) 5 mg PO ONETIME ONE Stop: 03/17/21 05:16 Last Admin: 03/17/21 07:34 Dose: Not Given Documented by: Phytonadione (Phytonadione 10 Mg/1 Ml Amp) 5 mg PO ONETIME ONE Stop: 03/17/21 07:16 Last Admin: 03/17/21 07:32 Dose: 5 mg Documented by: Phytonadione (Phytonadione 10 Mg/1 Ml Amp) 5 mg PO ONETIME ONE Stop: 03/18/21 09:01 Potassium Chloride (Potassium Chloride 20 Meq Tab.Er) 40 meq PO ONETIME ONE Stop: 03/18/21 08:27 Last Admin: 03/18/21 09:57 Dose: 40 meq Documented by: Potassium Chloride (Potassium Chloride 20 Meq Tab.Er) 40 meq PO ONETIME ONE Stop: 03/18/21 11:01 Last Admin: 03/18/21 11:37 Dose: Not Given Documented by: Potassium Chloride (Potassium Chloride 20 Meq Tab.Er) 40 meq PO ONETIME ONE Stop: 03/18/21 21:01 Last Admin: 03/18/21 21:01 Dose: 40 meq Documented by: Potassium Chloride (Potassium Chloride 20 Meq Tab.Er) 40 meq PO ONETIME ONE Stop: 03/19/21 00:20 Last Admin: 03/19/21 01:21 Dose: Not Given Documented by: Sodium Phosphate (Phosphorus #1 250 Mg Tab) 250 mg PO QID GEORGE Stop: 03/21/21 09:00 Last Admin: 03/21/21 05:28 Dose: 250 mg Documented by: - Exam General: Alert, Oriented, Cooperative HEENT: Mucous Membr. Moist/[place] Neck: No: Lymphadenopathy Lungs: Clear to Auscultation, Normal Respiratory Effort Cardiovascular: Regular Rate, Regular Rhythm GI/Abdominal Exam: Tender - Patient Data Lab Results Last 24 hrs: Laboratory Results - last 24 hr 03/21/21 03/22/21 03/22/21 Range/Units 15:01 05:30 05:30 WBC 7.25 (4.0-11.0) K/uL RBC 3.31 L (4.50-5.90) M/uL Hgb 11.8 L (13.0-17.0) g/dL Hct 35.5 L (38.0-50.0) % MCV 107.3 H (80.0-98.0) fL MCH 35.6 H (27.0-32.0) pg MCHC 33.2 (31.0-37.0) g/dL RDW Std Deviation 62.9 H (28.0-62.0) fl RDW Coeff of Briseida 16 H (11.0-15.0) % Plt Count 122 L (150-400) K/uL MPV 10.80 (7.40-12.00) fL Neut % (Auto) 60.3 (48.0-80.0) % Lymph % (Auto) 24.8 (16.0-40.0) % [place] % (Auto) 12.7 (0.0-15.0) % Eos % (Auto) 1.2 (0.0-7.0) % Baso % (Auto) 1.0 (0.0-1.5) % Neut # (Auto) 4.4 (1.4-5.7) K/uL Lymph # (Auto) 1.8 (0.6-2.4) K/uL [place] # (Auto) 0.9 H (0.0-0.8) K/uL Eos # (Auto) 0.1 (0.0-0.7) K/uL Baso # (Auto) 0.1 (0.0-0.1) K/uL Nucleated RBC % 0.0 /100WBC Nucleated RBCs # 0 K/uL Sodium 136 (136-148) mmol/L Potassium 4.5 (3.5-5.1) mmol/L Chloride 99 (98-107) mmol/L Carbon Dioxide 33.3 H (21.0-32.0) mmol/L BUN 5 L (7.0-18.0) mg/dL Creatinine 1.1 (0.8-1.3) mg/dL Est Cr Clr Drug Dosing 110.69 mL/min Estimated GFR (MDRD) > 60.0 ml/min Glucose 97 (74-106) mg/dL Calcium 7.6 L (8.5-10.1) mg/dL Total Bilirubin 4.7 H (0.2-1.0) mg/dL AST 70 H (15-37) IU/L ALT 20 (14-63) IU/L Alkaline Phosphatase 83 (46-116) U/L Total Protein 8.0 (6.4-8.2) g/dL Albumin 1.9 L (3.4-5.0) g/dL Globulin 6.1 H (2.6-4.0) g/dL Albumin/Globulin Ratio 0.3 L (0.9-1.6) Lipase 334 (73-393) U/L Result Diagrams: 03/22/21 05:30 03/22/21 05:30 Froilan Results Last 24 hrs: Microbiology 03/17/21 02:15 Miscellaneous Reference Culture - Final Peritoneal Fluid Gram Stain - Final 03/17/21 05:18 Aerobic Blood Culture - Final Blood - Venous - Lab Draw NO GROWTH AFTER 5 DAYS Anaerobic Blood Culture - Final NO GROWTH AFTER 5 DAYS 03/16/21 23:35 Aerobic Blood Culture - Final Blood - Venous NO GROWTH AFTER 5 DAYS Anaerobic Blood Culture - Final NO GROWTH AFTER 5 DAYS Sepsis Event Note - Evaluation Sepsis Screening Result: Possible Sepsis Risk - Focused Exam Vital Signs: Vital Signs Temp Pulse Resp BP Pulse Ox Pulse Ox 03/22/21 08:00 97.2 F 97 15 120/66 93 L 03/22/21 06:00 94 L 94 L 03/22/21 04:00 96.6 F L 95 14 129/72 94 L 03/21/21 23:26 97.1 F 100 18 120/64 92 L - Problem List & Annotations (1) Alcoholic cirrhosis SNOMED Code(s): 658555919 Code(s): K70.30 - ALCOHOLIC CIRRHOSIS OF LIVER WITHOUT ASCITES Status: Acute Current Visit: Yes (2) Alcohol abuse SNOMED Code(s): 59946933 Code(s): F10.10 - ALCOHOL ABUSE, UNCOMPLICATED Status: Acute Current Visit: Yes (3) Ascites SNOMED Code(s): 551194859 Code(s): R18.8 - OTHER ASCITES Status: Acute Current Visit: Yes - Problem List Review Problem List Initiated/Reviewed/Updated: Yes - My Orders Last 24 Hours: My Active Orders 03/22/21 Breakfast NPO After Midnight [Nothing per Oral After Midnight Diet] [DIET] 03/22/21 07:29 Guidance Paracentesis [US] Routine 03/23/21 05:11 CBC WITH AUTO DIFF [HEME] AM CMP [COMPREHENSIVE METABOLIC PN,CMP] [CHEM] AM 11/04/21 05:11 CBC WITH AUTO DIFF [HEME] AM CMP [COMPREHENSIVE METABOLIC PN,CMP] [CHEM] AM - Plan Plan:: 1. Alcoholic cirrhosis with ascites -The patient initially had a paracentesis procedure done this past Sunday which revealed 2 L of fluid, he will have a second procedure done today by Dr. Shamar abdullahi, the [facility] interventional radiologist after 1 PM. Moving forward the patient will follow up with specialists in [place]. -We will continue with daily CBC and CMP draws to give us information about blood parameters, electrolytes, LFTs, RFT's, and bilirubin. -We will continue the patient on IV Zosyn, lactulose, spironolactone, Protonix, Zofran, thiamine, and Lasix. -We will continue with CIWA protocol for withdrawal symptoms with Ativan. -For pain we will continue with oxycodone 5 mg every 6 hours as needed. <Chel Shoemaker - Last Filed: 03/22/21 16:39> - Patient Data Vitals - Most Recent: Last Vital Signs Temp 36.4 C 03/22/21 12:00 Pulse 100 03/22/21 12:00 Resp 17 03/22/21 12:00 BP 110/80 03/22/21 12:00 Pulse Ox 93 L 03/22/21 12:00 I&O - Last 24 Hours: Intake & Output 03/22/21 03/22/21 03/22/21 06:59 14:59 22:59 Intake Total 340 Balance 340 Lab Results Last 24 Hours: Laboratory Results - last 24 hr 03/18/21 03/18/21 03/18/21 Range/Units 05:50 05:50 05:50 WBC (4.0-11.0) K/uL RBC (4.50-5.90) M/uL Hgb (13.0-17.0) g/dL Hct (38.0-50.0) % MCV (80.0-98.0) fL MCH (27.0-32.0) pg MCHC (31.0-37.0) g/dL RDW Std Deviation (28.0-62.0) fl RDW Coeff of Briseida (11.0-15.0) % Plt Count (150-400) K/uL MPV (7.40-12.00) fL Neut % (Auto) (48.0-80.0) % Lymph % (Auto) (16.0-40.0) % [place] % (Auto) (0.0-15.0) % Eos % (Auto) (0.0-7.0) % Baso % (Auto) (0.0-1.5) % Neut # (Auto) (1.4-5.7) K/uL Lymph # (Auto) (0.6-2.4) K/uL [place] # (Auto) (0.0-0.8) K/uL Eos # (Auto) (0.0-0.7) K/uL Baso # (Auto) (0.0-0.1) K/uL Nucleated RBC % /100WBC Nucleated RBCs # K/uL Sodium (136-148) mmol/L Potassium (3.5-5.1) mmol/L Chloride (98-107) mmol/L Carbon Dioxide (21.0-32.0) mmol/L BUN (7.0-18.0) mg/dL Creatinine (0.8-1.3) mg/dL Est Cr Clr Drug Dosing mL/min Estimated GFR (MDRD) ml/min Glucose (74-106) mg/dL Calcium (8.5-10.1) mg/dL Total Bilirubin (0.2-1.0) mg/dL AST (15-37) IU/L ALT (14-63) IU/L Alkaline Phosphatase (46-116) U/L Total Protein (6.4-8.2) g/dL Albumin (3.4-5.0) g/dL Globulin (2.6-4.0) g/dL Albumin/Globulin Ratio (0.9-1.6) Fluid Type Fluid Color Fluid Appearance Fluid WBC /uL Fluid RBC /uL Fluid Mononuclear Cell % Fl Polymorphonucl Cell % Fluid Glucose mg/dL Fluid Total Protein g/dL Fluid Albumin g/dL Fluid LDH U/L Fluid Amylase U/L Fluid Triglycerides mg/dL PETAR Screen Negative (Negative) Double Strand DNA Ab 5 (0-9) IU/mL Anti-Smooth Muscle Ab 18 (0-19) Units 03/22/21 03/22/21 03/22/21 Range/Units 05:30 05:30 14:05 WBC 7.25 (4.0-11.0) K/uL RBC 3.31 L (4.50-5.90) M/uL Hgb 11.8 L (13.0-17.0) g/dL Hct 35.5 L (38.0-50.0) % MCV 107.3 H (80.0-98.0) fL MCH 35.6 H (27.0-32.0) pg MCHC 33.2 (31.0-37.0) g/dL RDW Std Deviation 62.9 H (28.0-62.0) fl RDW Coeff of Briseida 16 H (11.0-15.0) % Plt Count 122 L (150-400) K/uL MPV 10.80 (7.40-12.00) fL Neut % (Auto) 60.3 (48.0-80.0) % Lymph % (Auto) 24.8 (16.0-40.0) % [place] % (Auto) 12.7 (0.0-15.0) % Eos % (Auto) 1.2 (0.0-7.0) % Baso % (Auto) 1.0 (0.0-1.5) % Neut # (Auto) 4.4 (1.4-5.7) K/uL Lymph # (Auto) 1.8 (0.6-2.4) K/uL [place] # (Auto) 0.9 H (0.0-0.8) K/uL Eos # (Auto) 0.1 (0.0-0.7) K/uL Baso # (Auto) 0.1 (0.0-0.1) K/uL Nucleated RBC % 0.0 /100WBC Nucleated RBCs # 0 K/uL Sodium 136 (136-148) mmol/L Potassium 4.5 (3.5-5.1) mmol/L Chloride 99 (98-107) mmol/L Carbon Dioxide 33.3 H (21.0-32.0) mmol/L BUN 5 L (7.0-18.0) mg/dL Creatinine 1.1 (0.8-1.3) mg/dL Est Cr Clr Drug Dosing 110.69 mL/min Estimated GFR (MDRD) > 60.0 ml/min Glucose 97 (74-106) mg/dL Calcium 7.6 L (8.5-10.1) mg/dL Total Bilirubin 4.7 H (0.2-1.0) mg/dL AST 70 H (15-37) IU/L ALT 20 (14-63) IU/L Alkaline Phosphatase 83 (46-116) U/L Total Protein 8.0 (6.4-8.2) g/dL Albumin 1.9 L (3.4-5.0) g/dL Globulin 6.1 H (2.6-4.0) g/dL Albumin/Globulin Ratio 0.3 L (0.9-1.6) Fluid Type PER Fluid Color YELLOW Fluid Appearance CLEAR Fluid WBC 158 /uL Fluid RBC 0 /uL Fluid Mononuclear Cell 82 % Fl Polymorphonucl Cell 18 % Fluid Glucose 109 mg/dL Fluid Total Protein 1.6 g/dL Fluid Albumin 0.4 g/dL Fluid LDH 38 U/L Fluid Amylase 18 U/L Fluid Triglycerides 21 mg/dL PETAR Screen (Negative) Double Strand DNA Ab (0-9) IU/mL Anti-Smooth Muscle Ab (0-19) Units Froilan Results Last 24 Hours: Microbiology 03/17/21 02:15 Miscellaneous Reference Culture - Final Peritoneal Fluid Gram Stain - Final 03/17/21 05:18 Aerobic Blood Culture - Final Blood - Venous - Lab Draw NO GROWTH AFTER 5 DAYS Anaerobic Blood Culture - Final NO GROWTH AFTER 5 DAYS 03/16/21 23:35 Aerobic Blood Culture - Final Blood - Venous NO GROWTH AFTER 5 DAYS Anaerobic Blood Culture - Final NO GROWTH AFTER 5 DAYS Med Orders - Current: Current Medications Acetaminophen (Acetaminophen 325 Mg Tab) 325 mg PO Q6H PRN PRN Reason: Pain Last Admin: 03/18/21 04:01 Dose: 325 mg Documented by: Albuterol/Ipratropium (Albuterol/Ipratropium 3.0-0.5 Mg/3 Ml Neb Soln) 3 ml NEB Q4HRRT PRN PRN Reason: Shortness Of Breath/wheezing Furosemide (Furosemide 40 Mg/4 Ml Vial) 40 mg IVPUSH BID [facility] Last Admin: 03/22/21 09:03 Dose: 40 mg Documented by: Pantoprazole Sodium 40 mg/ (Sodium Chloride) 10 mls @ 300 mls/hr IV DAILY [facility] Last Admin: 03/22/21 09:04 Dose: 300 mls/hr Documented by: Piperacillin Sod/Tazobactam (Sod 3.375 gm/ Sodium Chloride) 50 mls @ 100 mls/hr IV Q8H [facility] Last Admin: 03/22/21 12:23 Dose: 100 mls/hr Documented by: Lactulose (Lactulose Soln 10 Gm/15 Ml 15 Ml Ud Cup) 10 gm PO BID [facility] Last Admin: 03/22/21 12:43 Dose: Not Given Documented by: Lorazepam (Lorazepam 2 Mg/Ml Sdv) 0 mg IVPUSH Q4H PRN; Protocol PRN Reason: Withdrawal Symptoms Ondansetron HCl (Ondansetron 4 Mg/2 Ml Sdv) 4 mg IVPUSH Q4H PRN PRN Reason: Nausea/Vomiting Oxycodone HCl (Oxycodone 5 Mg Tab) 5 mg PO Q6H PRN PRN Reason: Pain Last Admin: 03/22/21 15:14 Dose: 5 mg Documented by: Potassium Chloride (Potassium Chloride 20 Meq Tab.Er) 40 meq PO BID [facility] Last Admin: 03/22/21 12:43 Dose: Not Given Documented by: Spironolactone (Spironolactone 25 Mg Tab) 25 mg PO DAILY [facility] Last Admin: 03/22/21 09:02 Dose: 25 mg Documented by: Thiamine HCl (Thiamine 100 Mg Tab) 100 mg PO BEDTIME [facility] Last Admin: 03/21/21 20:50 Dose: 100 mg Documented by: Discontinued Medications Furosemide (Furosemide 40 Mg/4 Ml Vial) 40 mg IVPUSH NOW ONE Stop: 03/19/21 09:53 Last Admin: 03/19/21 10:51 Dose: 40 mg Documented by: Sodium Chloride (Normal Saline) 1,000 mls @ 999 mls/hr IV ASDIRECTED [facility] Last Admin: 03/17/21 00:28 Dose: 999 mls/hr Documented by: Piperacillin Sod/Tazobactam (Sod 4.5 gm/ Sodium Chloride) 100 mls @ 100 mls/hr IV ONETIME ONE Stop: 03/17/21 05:33 Last Admin: 03/17/21 04:42 Dose: 100 mls/hr Documented by: Pantoprazole Sodium 80 mg/ (Sodium Chloride) 20 mls @ 420 mls/hr IVPUSH ONETIME ONE Stop: 03/17/21 05:17 Last Admin: 03/17/21 06:26 Dose: 420 mls/hr Documented by: Lactated Ringer's (Ringers, Lactated) 1,000 mls @ 125 mls/hr IV ASDIRECTED [facility] Stop: 03/17/21 23:00 Last Admin: 03/17/21 17:25 Dose: 125 mls/hr Documented by: Magnesium Sulfate 2 gm/ Premix 50 mls @ 200 mls/hr IV ONETIME ONE Stop: 03/17/21 20:25 Last Admin: 03/17/21 20:17 Dose: 200 mls/hr Documented by: Potassium Chloride/Sodium Chloride (Normal Saline With 40 Meq Kcl) 1,000 mls @ 250 mls/hr IV ONETIME ONE Stop: 03/18/21 13:44 Last Admin: 03/18/21 10:15 Dose: 250 mls/hr Documented by: Magnesium Sulfate (Magnesium Sulfate In Water 2 Gm/50 Ml) 50 mls @ 50 mls/hr IV NOW ONE Stop: 03/19/21 01:29 Last Admin: 03/19/21 00:52 Dose: 50 mls/hr Documented by: Magnesium Sulfate 2 gm/ Premix 50 mls @ 25 mls/hr IV ONETIME ONE Stop: 03/20/21 12:44 Last Admin: 03/20/21 10:49 Dose: 25 mls/hr Documented by: Magnesium Sulfate 4 gm/ Premix 100 mls @ 50 mls/hr IV ONETIME ONE Stop: 03/21/21 16:41 Last Admin: 03/21/21 15:11 Dose: 50 mls/hr Documented by: Iopamidol (Iopamidol 755 Mg/Ml 500 Ml Multipack Bottle) 100 ml IVPUSH ONETIME STA Stop: 03/17/21 00:23 Last Admin: 03/17/21 00:23 Dose: 100 ml Documented by: Iopamidol (Iopamidol 755 Mg/Ml 500 Ml Multipack Bottle) 100 ml IVPUSH ONETIME STA Stop: 03/21/21 15:58 Last Admin: 03/22/21 00:25 Dose: Not Given Documented by: Iopamidol (Iopamidol 755 Mg/Ml 500 Ml Multipack Bottle) 100 ml IVPUSH ONETIME STA Stop: 03/21/21 15:59 Last Admin: 03/21/21 15:58 Dose: 100 ml Documented by: Magnesium Oxide (Magnesium Oxide 400 Mg Tab) 800 mg PO ONETIME ONE Stop: 03/18/21 08:29 Last Admin: 03/18/21 09:58 Dose: 800 mg Documented by: Magnesium Sulfate (Magnesium Sulfate/Water 2 Gm/50 Ml Premix Bag) 2 gm IV ONETIME ONE Stop: 03/19/21 00:20 Oxycodone HCl (Oxycodone 5 Mg Tab) 5 mg PO Q8H PRN PRN Reason: Pain Last Admin: 03/18/21 13:16 Dose: 5 mg Documented by: Phytonadione (Phytonadione 5 Mg Tab) 5 mg PO ONETIME ONE Stop: 03/17/21 05:16 Last Admin: 03/17/21 07:34 Dose: Not Given Documented by: Phytonadione (Phytonadione 10 Mg/1 Ml Amp) 5 mg PO ONETIME ONE Stop: 03/17/21 07:16 Last Admin: 03/17/21 07:32 Dose: 5 mg Documented by: Phytonadione (Phytonadione 10 Mg/1 Ml Amp) 5 mg PO ONETIME ONE Stop: 03/18/21 09:01 Potassium Chloride (Potassium Chloride 20 Meq Tab.Er) 40 meq PO ONETIME ONE Stop: 03/18/21 08:27 Last Admin: 03/18/21 09:57 Dose: 40 meq Documented by: Potassium Chloride (Potassium Chloride 20 Meq Tab.Er) 40 meq PO ONETIME ONE Stop: 03/18/21 11:01 Last Admin: 03/18/21 11:37 Dose: Not Given Documented by: Potassium Chloride (Potassium Chloride 20 Meq Tab.Er) 40 meq PO ONETIME ONE Stop: 03/18/21 21:01 Last Admin: 03/18/21 21:01 Dose: 40 meq Documented by: Potassium Chloride (Potassium Chloride 20 Meq Tab.Er) 40 meq PO ONETIME ONE Stop: 03/19/21 00:20 Last Admin: 03/19/21 01:21 Dose: Not Given Documented by: Sodium Phosphate (Phosphorus #1 250 Mg Tab) 250 mg PO QID GEORGE Stop: 03/21/21 09:00 Last Admin: 03/21/21 05:28 Dose: 250 mg Documented by: - Patient Data Lab Results Last 24 hrs: Laboratory Results - last 24 hr 10/29/21 10/29/21 10/29/21 Range/Units 05:50 05:50 05:50 WBC (4.0-11.0) K/uL RBC (4.50-5.90) M/uL Hgb (13.0-17.0) g/dL Hct (38.0-50.0) % MCV (80.0-98.0) fL MCH (27.0-32.0) pg MCHC (31.0-37.0) g/dL RDW Std Deviation (28.0-62.0) fl RDW Coeff of Briseida (11.0-15.0) % Plt Count (150-400) K/uL MPV (7.40-12.00) fL Neut % (Auto) (48.0-80.0) % Lymph % (Auto) (16.0-40.0) % [place] % (Auto) (0.0-15.0) % Eos % (Auto) (0.0-7.0) % Baso % (Auto) (0.0-1.5) % Neut # (Auto) (1.4-5.7) K/uL Lymph # (Auto) (0.6-2.4) K/uL [place] # (Auto) (0.0-0.8) K/uL Eos # (Auto) (0.0-0.7) K/uL Baso # (Auto) (0.0-0.1) K/uL Nucleated RBC % /100WBC Nucleated RBCs # K/uL Sodium (136-148) mmol/L Potassium (3.5-5.1) mmol/L Chloride (98-107) mmol/L Carbon Dioxide (21.0-32.0) mmol/L BUN (7.0-18.0) mg/dL Creatinine (0.8-1.3) mg/dL Est Cr Clr Drug Dosing mL/min Estimated GFR (MDRD) ml/min Glucose (74-106) mg/dL Calcium (8.5-10.1) mg/dL Total Bilirubin (0.2-1.0) mg/dL AST (15-37) IU/L ALT (14-63) IU/L Alkaline Phosphatase (46-116) U/L Total Protein (6.4-8.2) g/dL Albumin (3.4-5.0) g/dL Globulin (2.6-4.0) g/dL Albumin/Globulin Ratio (0.9-1.6) Fluid Type Fluid Color Fluid Appearance Fluid WBC /uL Fluid RBC /uL Fluid Mononuclear Cell % Fl Polymorphonucl Cell % Fluid Glucose mg/dL Fluid Total Protein g/dL Fluid Albumin g/dL Fluid LDH U/L Fluid Amylase U/L Fluid Triglycerides mg/dL PETAR Screen Negative (Negative) Double Strand DNA Ab 5 (0-9) IU/mL Anti-Smooth Muscle Ab 18 (0-19) Units 03/22/21 03/22/21 03/22/21 Range/Units 05:30 05:30 14:05 WBC 7.25 (4.0-11.0) K/uL RBC 3.31 L (4.50-5.90) M/uL Hgb 11.8 L (13.0-17.0) g/dL Hct 35.5 L (38.0-50.0) % MCV 107.3 H (80.0-98.0) fL MCH 35.6 H (27.0-32.0) pg MCHC 33.2 (31.0-37.0) g/dL RDW Std Deviation 62.9 H (28.0-62.0) fl RDW Coeff of Briseida 16 H (11.0-15.0) % Plt Count 122 L (150-400) K/uL MPV 10.80 (7.40-12.00) fL Neut % (Auto) 60.3 (48.0-80.0) % Lymph % (Auto) 24.8 (16.0-40.0) % [place] % (Auto) 12.7 (0.0-15.0) % Eos % (Auto) 1.2 (0.0-7.0) % Baso % (Auto) 1.0 (0.0-1.5) % Neut # (Auto) 4.4 (1.4-5.7) K/uL Lymph # (Auto) 1.8 (0.6-2.4) K/uL [place] # (Auto) 0.9 H (0.0-0.8) K/uL Eos # (Auto) 0.1 (0.0-0.7) K/uL Baso # (Auto) 0.1 (0.0-0.1) K/uL Nucleated RBC % 0.0 /100WBC Nucleated RBCs # 0 K/uL Sodium 136 (136-148) mmol/L Potassium 4.5 (3.5-5.1) mmol/L Chloride 99 (98-107) mmol/L Carbon Dioxide 33.3 H (21.0-32.0) mmol/L BUN 5 L (7.0-18.0) mg/dL Creatinine 1.1 (0.8-1.3) mg/dL Est Cr Clr Drug Dosing 110.69 mL/min Estimated GFR (MDRD) > 60.0 ml/min Glucose 97 (74-106) mg/dL Calcium 7.6 L (8.5-10.1) mg/dL Total Bilirubin 4.7 H (0.2-1.0) mg/dL AST 70 H (15-37) IU/L ALT 20 (14-63) IU/L Alkaline Phosphatase 83 (46-116) U/L Total Protein 8.0 (6.4-8.2) g/dL Albumin 1.9 L (3.4-5.0) g/dL Globulin 6.1 H (2.6-4.0) g/dL Albumin/Globulin Ratio 0.3 L (0.9-1.6) Fluid Type PER Fluid Color YELLOW Fluid Appearance CLEAR Fluid WBC 158 /uL Fluid RBC 0 /uL Fluid Mononuclear Cell 82 % Fl Polymorphonucl Cell 18 % Fluid Glucose 109 mg/dL Fluid Total Protein 1.6 g/dL Fluid Albumin 0.4 g/dL Fluid LDH 38 U/L Fluid Amylase 18 U/L Fluid Triglycerides 21 mg/dL PETAR Screen (Negative) Double Strand DNA Ab (0-9) IU/mL Anti-Smooth Muscle Ab (0-19) Units Result Diagrams: 03/22/21 05:30 03/22/21 05:30 [place] Results Last 24 hrs: Microbiology 03/17/21 02:15 Miscellaneous Reference Culture - Final Peritoneal Fluid Gram Stain - Final 03/17/21 05:18 Aerobic Blood Culture - Final Blood - Venous - Lab Draw NO GROWTH AFTER 5 DAYS Anaerobic Blood Culture - Final NO GROWTH AFTER 5 DAYS 03/16/21 23:35 Aerobic Blood Culture - Final Blood - Venous NO GROWTH AFTER 5 DAYS Anaerobic Blood Culture - Final NO GROWTH AFTER 5 DAYS Sepsis Event Note - Focused Exam Vital Signs: Vital Signs Temp Pulse Resp BP Pulse Ox Pulse Ox 03/22/21 12:00 36.4 C 100 17 110/80 93 L 03/22/21 08:00 36.2 C 97 15 120/66 93 L 03/22/21 06:00 94 L 94 L - My Orders Last 24 Hours: My Active Orders 03/22/21 Lunch Soft Diet [DIET] 03/22/21 14:22 CULTURE AFB AND SMEAR [MREF] Routine 03/22/21 14:32 BODY FLUID, TOTAL BILIRUBIN Routine 03/22/21 14:34 MISCELLANEOUS CULT [MREF] Routine - Plan Plan:: I have seen and evaluated the patient and agree with the residents note unless specified in my note
[2021-03-22] MEDS: Lactulose Soln 10 GM/15 ML 15 ML UD Cup PO SCH ×2 (12:43→20:45)
[2021-03-22] MEDS: Potassium Chloride 20 MEQ Tab.ER PO SCH ×2 (12:43→20:45)
--- NOTE | 2021-03-22 16:02 | US ---
Indication: Abdominal distention, ascites Technique: Ultrasound-guided paracentesis Comparison: None Findings: After informed consent was obtained from the patient formal time out was performed. An appropriate site in the patient`s right lateral upper abdomen was prepped with ChloraPrep and aseptic and allowed to dry. Using 1 percent local lidocaine anesthesia, sterile technique and ultrasound guidance a 5 [place] needle/catheter was advanced into the abdomen with subsequent removal of 5000 cc of straw-colored non purulent ascites. The catheter was removed and hemostasis was obtained at the skin puncture site. The patient tolerated the procedure well with no immediate complications or complaints. Impression: Successful uneventful ultrasound-guided paracentesis with removal of 5000 cc of ascites. Dictated by Bob Hall MD @ 03/22/2021 4:01:49 PM (Electronically Signed)
[2021-03-22] MEDS: Thiamine 100 MG Tab PO SCH (20:44)
[2021-03-23] MEDS: oxyCODONE 5 MG Tab PO PRN ×4 (02:28→20:17)
[2021-03-23] MEDS: Piperacillin/Tazobactam 3.375 GM in Sodium Chloride 0.9% 50 ML IV SCH ×3 (05:44→20:14)
[2021-03-23 07:41] LABS: BLOOD UREA NITROGEN,BUN 6 mg/dL (7.0-18.0); CARBON DIOXIDE,CO2 31.3 mmol/L (21.0-32.0); CHLORIDE,CL 99 mmol/L (98-107); GLUCOSE RANDOM 95 mg/dL (74-106); POTASSIUM,K 3.8 mmol/L (3.5-5.1); SODIUM,NA 137 mmol/L (136-148)
[2021-03-23] MEDS: Potassium Chloride 20 MEQ Tab.ER PO SCH ×2 (08:56→20:16)
[2021-03-23] MEDS: Furosemide 40 MG/4 ML VIAL IVPUSH SCH ×2 (08:56→20:18)
[2021-03-23] MEDS: Lactulose Soln 10 GM/15 ML 15 ML UD Cup PO SCH ×2 (08:56→20:18)
[2021-03-23] MEDS: Spironolactone 25 MG Tab PO SCH (08:56)
[2021-03-23] MEDS: Pantoprazole 40 MG in Sodium Chloride 0.9% 10 ML IV SCH (08:56)
--- NOTE | 2021-03-23 12:05 | PCM.PN ---
<Cristo Abarca - Last Filed: 03/23/21 12:06> - General Info Date of Service: 03/23/21 Subjective Update: The patient is a 40-year-old male, on day 7 of service, with a significant past medical history of obesity with a BMI over 30, who was admitted due to alcoholic cirrhosis with ascites. Upon interview with the patient today he continues to have diffuse abdominal pain in all quadrants which is 7 out of 10 in intensity, and pressure-like in nature. The patient had a paracentesis procedure done yesterday which revealed 5 L of ascites fluid which temporarily improved his abdominal distention. However today his abdomen started to become distended again and he is in pain. He has oxycodone 5 mg per oral route every 6 hours on board but this will be changed to every 4 hours to adequately control his pain. The patient will most likely stay for 1 more day and will have to have outpatient follow-up with a GI doctor to address his health concerns. - Review of Systems General: Reports: Fatigue. Denies: Fever HEENT: Denies: Headaches, Sore Throat Pulmonary: Denies: Shortness of Breath, Cough Cardiovascular: Denies: Chest Pain, Palpitations Gastrointestinal: Reports: Abdominal Pain. Denies: Nausea, Vomiting Genitourinary: Denies: Dysuria - Patient Data Vitals - Most Recent: Last Vital Signs Temp 97.0 F 03/23/21 09:00 Pulse 93 03/23/21 09:00 Resp 16 03/23/21 09:00 BP 117/59 L 03/23/21 09:00 Pulse Ox 90 L 03/23/21 09:00 Weight - Most Recent: 103.419 kg I&O - Last 24 Hours: Intake & Output 03/22/21 03/23/21 03/23/21 22:59 06:59 14:59 Intake Total 550 Output Total 950 Balance -400 Lab Results Last 24 Hours: Laboratory Results - last 24 hr 03/18/21 03/18/21 03/18/21 Range/Units 05:50 05:50 05:50 WBC (4.0-11.0) K/uL RBC (4.50-5.90) M/uL Hgb (13.0-17.0) g/dL Hct (38.0-50.0) % MCV (80.0-98.0) fL MCH (27.0-32.0) pg MCHC (31.0-37.0) g/dL RDW Std Deviation (28.0-62.0) fl RDW Coeff of Briseida (11.0-15.0) % Plt Count (150-400) K/uL MPV (7.40-12.00) fL Neut % (Auto) (48.0-80.0) % Lymph % (Auto) (16.0-40.0) % [place] % (Auto) (0.0-15.0) % Eos % (Auto) (0.0-7.0) % Baso % (Auto) (0.0-1.5) % Neut # (Auto) (1.4-5.7) K/uL Lymph # (Auto) (0.6-2.4) K/uL [place] # (Auto) (0.0-0.8) K/uL Eos # (Auto) (0.0-0.7) K/uL Baso # (Auto) (0.0-0.1) K/uL Nucleated RBC % /100WBC Nucleated RBCs # K/uL Sodium (136-148) mmol/L Potassium (3.5-5.1) mmol/L Chloride (98-107) mmol/L Carbon Dioxide (21.0-32.0) mmol/L BUN (7.0-18.0) mg/dL Creatinine (0.8-1.3) mg/dL Est Cr Clr Drug Dosing mL/min Estimated GFR (MDRD) ml/min Glucose (74-106) mg/dL Calcium (8.5-10.1) mg/dL Total Bilirubin (0.2-1.0) mg/dL AST (15-37) IU/L ALT (14-63) IU/L Alkaline Phosphatase (46-116) U/L Total Protein (6.4-8.2) g/dL Albumin (3.4-5.0) g/dL Globulin (2.6-4.0) g/dL Albumin/Globulin Ratio (0.9-1.6) Fluid Type Fluid Color Fluid Appearance Fluid WBC /uL Fluid RBC /uL Fluid Mononuclear Cell % Fl Polymorphonucl Cell % Fluid Glucose mg/dL Fluid Total Protein g/dL Fluid Albumin g/dL Fluid LDH U/L Fluid Amylase U/L Fluid Triglycerides mg/dL PETAR Screen Negative (Negative) Double Strand DNA Ab 5 (0-9) IU/mL Anti-Smooth Muscle Ab 18 (0-19) Units 03/22/21 03/23/21 03/23/21 Range/Units 14:05 05:45 05:45 WBC 8.02 (4.0-11.0) K/uL RBC 3.40 L (4.50-5.90) M/uL Hgb 12.1 L (13.0-17.0) g/dL Hct 36.8 L (38.0-50.0) % MCV 108.2 H (80.0-98.0) fL MCH 35.6 H (27.0-32.0) pg MCHC 32.9 (31.0-37.0) g/dL RDW Std Deviation 63.8 H (28.0-62.0) fl RDW Coeff of Briseida 16 H (11.0-15.0) % Plt Count 114 L (150-400) K/uL MPV 10.80 (7.40-12.00) fL Neut % (Auto) 60.6 (48.0-80.0) % Lymph % (Auto) 28.7 (16.0-40.0) % [place] % (Auto) 8.5 (0.0-15.0) % Eos % (Auto) 1.5 (0.0-7.0) % Baso % (Auto) 0.7 (0.0-1.5) % Neut # (Auto) 4.9 (1.4-5.7) K/uL Lymph # (Auto) 2.3 (0.6-2.4) K/uL [place] # (Auto) 0.7 (0.0-0.8) K/uL Eos # (Auto) 0.1 (0.0-0.7) K/uL Baso # (Auto) 0.1 (0.0-0.1) K/uL Nucleated RBC % 0.0 /100WBC Nucleated RBCs # 0 K/uL Sodium 137 (136-148) mmol/L Potassium 3.8 (3.5-5.1) mmol/L Chloride 99 (98-107) mmol/L Carbon Dioxide 31.3 (21.0-32.0) mmol/L BUN 6 L (7.0-18.0) mg/dL Creatinine 1.1 (0.8-1.3) mg/dL Est Cr Clr Drug Dosing 110.69 mL/min Estimated GFR (MDRD) > 60.0 ml/min Glucose 95 (74-106) mg/dL Calcium 7.6 L (8.5-10.1) mg/dL Total Bilirubin 4.9 H (0.2-1.0) mg/dL AST 74 H (15-37) IU/L ALT 17 (14-63) IU/L Alkaline Phosphatase 82 (46-116) U/L Total Protein 8.2 (6.4-8.2) g/dL Albumin 2.0 L (3.4-5.0) g/dL Globulin 6.2 H (2.6-4.0) g/dL Albumin/Globulin Ratio 0.3 L (0.9-1.6) Fluid Type PER Fluid Color YELLOW Fluid Appearance CLEAR Fluid WBC 158 /uL Fluid RBC 0 /uL Fluid Mononuclear Cell 82 % Fl Polymorphonucl Cell 18 % Fluid Glucose 109 mg/dL Fluid Total Protein 1.6 g/dL Fluid Albumin 0.4 g/dL Fluid LDH 38 U/L Fluid Amylase 18 U/L Fluid Triglycerides 21 mg/dL PETAR Screen (Negative) Double Strand DNA Ab (0-9) IU/mL Anti-Smooth Muscle Ab (0-19) Units Froilan Results Last 24 Hours: Microbiology 03/17/21 02:15 Miscellaneous Reference Culture - Final Peritoneal Fluid Gram Stain - Final Med Orders - Current: Current Medications Acetaminophen (Acetaminophen 325 Mg Tab) 325 mg PO Q6H PRN PRN Reason: Pain Last Admin: 03/18/21 04:01 Dose: 325 mg Documented by: Albuterol/Ipratropium (Albuterol/Ipratropium 3.0-0.5 Mg/3 Ml Neb Soln) 3 ml NEB Q4HRRT PRN PRN Reason: Shortness Of Breath/wheezing Furosemide (Furosemide 40 Mg/4 Ml Vial) 40 mg IVPUSH BID [facility] Last Admin: 03/23/21 08:56 Dose: 40 mg Documented by: Pantoprazole Sodium 40 mg/ (Sodium Chloride) 10 mls @ 300 mls/hr IV DAILY [facility] Last Admin: 03/23/21 08:56 Dose: 300 mls/hr Documented by: Piperacillin Sod/Tazobactam (Sod 3.375 gm/ Sodium Chloride) 50 mls @ 100 mls/hr IV Q8H [facility] Last Admin: 03/23/21 05:44 Dose: 100 mls/hr Documented by: Lactulose (Lactulose Soln 10 Gm/15 Ml 15 Ml Ud Cup) 10 gm PO BID [facility] Last Admin: 03/23/21 08:56 Dose: 10 gm Documented by: Lorazepam (Lorazepam 2 Mg/Ml Sdv) 0 mg IVPUSH Q4H PRN; Protocol PRN Reason: Withdrawal Symptoms Ondansetron HCl (Ondansetron 4 Mg/2 Ml Sdv) 4 mg IVPUSH Q4H PRN PRN Reason: Nausea/Vomiting Oxycodone HCl (Oxycodone 5 Mg Tab) 5 mg PO Q4H PRN PRN Reason: Pain Potassium Chloride (Potassium Chloride 20 Meq Tab.Er) 40 meq PO BID [facility] Last Admin: 03/23/21 08:56 Dose: 40 meq Documented by: Spironolactone (Spironolactone 25 Mg Tab) 25 mg PO DAILY [facility] Last Admin: 03/23/21 08:56 Dose: 25 mg Documented by: Thiamine HCl (Thiamine 100 Mg Tab) 100 mg PO BEDTIME [facility] Last Admin: 03/22/21 20:44 Dose: 100 mg Documented by: Discontinued Medications Furosemide (Furosemide 40 Mg/4 Ml Vial) 40 mg IVPUSH NOW ONE Stop: 03/19/21 09:53 Last Admin: 03/19/21 10:51 Dose: 40 mg Documented by: Sodium Chloride (Normal Saline) 1,000 mls @ 999 mls/hr IV ASDIRECTED [facility] Last Admin: 03/17/21 00:28 Dose: 999 mls/hr Documented by: Piperacillin Sod/Tazobactam (Sod 4.5 gm/ Sodium Chloride) 100 mls @ 100 mls/hr IV ONETIME ONE Stop: 03/17/21 05:33 Last Admin: 03/17/21 04:42 Dose: 100 mls/hr Documented by: Pantoprazole Sodium 80 mg/ (Sodium Chloride) 20 mls @ 420 mls/hr IVPUSH ONETIME ONE Stop: 03/17/21 05:17 Last Admin: 03/17/21 06:26 Dose: 420 mls/hr Documented by: Lactated Ringer's (Ringers, Lactated) 1,000 mls @ 125 mls/hr IV ASDIRECTED [facility] Stop: 03/17/21 23:00 Last Admin: 03/17/21 17:25 Dose: 125 mls/hr Documented by: Magnesium Sulfate 2 gm/ Premix 50 mls @ 200 mls/hr IV ONETIME ONE Stop: 03/17/21 20:25 Last Admin: 03/17/21 20:17 Dose: 200 mls/hr Documented by: Potassium Chloride/Sodium Chloride (Normal Saline With 40 Meq Kcl) 1,000 mls @ 250 mls/hr IV ONETIME ONE Stop: 03/18/21 13:44 Last Admin: 03/18/21 10:15 Dose: 250 mls/hr Documented by: Magnesium Sulfate (Magnesium Sulfate In Water 2 Gm/50 Ml) 50 mls @ 50 mls/hr IV NOW ONE Stop: 03/19/21 01:29 Last Admin: 03/19/21 00:52 Dose: 50 mls/hr Documented by: Magnesium Sulfate 2 gm/ Premix 50 mls @ 25 mls/hr IV ONETIME ONE Stop: 03/20/21 12:44 Last Admin: 03/20/21 10:49 Dose: 25 mls/hr Documented by: Magnesium Sulfate 4 gm/ Premix 100 mls @ 50 mls/hr IV ONETIME ONE Stop: 03/21/21 16:41 Last Admin: 03/21/21 15:11 Dose: 50 mls/hr Documented by: Iopamidol (Iopamidol 755 Mg/Ml 500 Ml Multipack Bottle) 100 ml IVPUSH ONETIME STA Stop: 03/17/21 00:23 Last Admin: 03/17/21 00:23 Dose: 100 ml Documented by: Iopamidol (Iopamidol 755 Mg/Ml 500 Ml Multipack Bottle) 100 ml IVPUSH ONETIME S TA Stop: 03/21/21 15:58 Last Admin: 03/22/21 00:25 Dose: Not Given Documented by: Iopamidol (Iopamidol 755 Mg/Ml 500 Ml Multipack Bottle) 100 ml IVPUSH ONETIME STA Stop: 03/21/21 15:59 Last Admin: 03/21/21 15:58 Dose: 100 ml Documented by: Magnesium Oxide (Magnesium Oxide 400 Mg Tab) 800 mg PO ONETIME ONE Stop: 03/18/21 08:29 Last Admin: 03/18/21 09:58 Dose: 800 mg Documented by: Magnesium Sulfate (Magnesium Sulfate/Water 2 Gm/50 Ml Premix Bag) 2 gm IV ONETIME ONE Stop: 03/19/21 00:20 Oxycodone HCl (Oxycodone 5 Mg Tab) 5 mg PO Q8H PRN PRN Reason: Pain Last Admin: 03/18/21 13:16 Dose: 5 mg Documented by: Oxycodone HCl (Oxycodone 5 Mg Tab) 5 mg PO Q6H PRN PRN Reason: Pain Last Admin: 03/23/21 08:56 Dose: 5 mg Documented by: Phytonadione (Phytonadione 5 Mg Tab) 5 mg PO ONETIME ONE Stop: 03/17/21 05:16 Last Admin: 03/17/21 07:34 Dose: Not Given Documented by: Phytonadione (Phytonadione 10 Mg/1 Ml Amp) 5 mg PO ONETIME ONE Stop: 03/17/21 07:16 Last Admin: 03/17/21 07:32 Dose: 5 mg Documented by: Phytonadione (Phytonadione 10 Mg/1 Ml Amp) 5 mg PO ONETIME ONE Stop: 03/18/21 09:01 Potassium Chloride (Potassium Chloride 20 Meq Tab.Er) 40 meq PO ONETIME ONE Stop: 03/18/21 08:27 Last Admin: 03/18/21 09:57 Dose: 40 meq Documented by: Potassium Chloride (Potassium Chloride 20 Meq Tab.Er) 40 meq PO ONETIME ONE Stop: 03/18/21 11:01 Last Admin: 03/18/21 11:37 Dose: Not Given Documented by: Potassium Chloride (Potassium Chloride 20 Meq Tab.Er) 40 meq PO ONETIME ONE Stop: 03/18/21 21:01 Last Admin: 03/18/21 21:01 Dose: 40 meq Documented by: Potassium Chloride (Potassium Chloride 20 Meq Tab.Er) 40 meq PO ONETIME ONE Stop: 03/19/21 00:20 Last Admin: 03/19/21 01:21 Dose: Not Given Documented by: Sodium Phosphate (Phosphorus #1 250 Mg Tab) 250 mg PO QID [facility] Stop: 03/21/21 09:00 Last Admin: 03/21/21 05:28 Dose: 250 mg Documented by: - Exam General: Alert, Oriented, Cooperative HEENT: Mucous Membr. Moist/[place] Lungs: Clear to Auscultation, Normal Respiratory Effort Cardiovascular: Regular Rate, Regular Rhythm GI/Abdominal Exam: Distended, Tender - Patient Data Lab Results Last 24 hrs: Laboratory Results - last 24 hr 03/18/21 03/18/21 03/18/21 Range/Units 05:50 05:50 05:50 WBC (4.0-11.0) K/uL RBC (4.50-5.90) M/uL Hgb (13.0-17.0) g/dL Hct (38.0-50.0) % MCV (80.0-98.0) fL MCH (27.0-32.0) pg MCHC (31.0-37.0) g/dL RDW Std Deviation (28.0-62.0) fl RDW Coeff of Briseida (11.0-15.0) % Plt Count (150-400) K/uL MPV (7.40-12.00) fL Neut % (Auto) (48.0-80.0) % Lymph % (Auto) (16.0-40.0) % [place] % (Auto) (0.0-15.0) % Eos % (Auto) (0.0-7.0) % Baso % (Auto) (0.0-1.5) % Neut # (Auto) (1.4-5.7) K/uL Lymph # (Auto) (0.6-2.4) K/uL [place] # (Auto) (0.0-0.8) K/uL Eos # (Auto) (0.0-0.7) K/uL Baso # (Auto) (0.0-0.1) K/uL Nucleated RBC % /100WBC Nucleated RBCs # K/uL Sodium (136-148) mmol/L Potassium (3.5-5.1) mmol/L Chloride (98-107) mmol/L Carbon Dioxide (21.0-32.0) mmol/L BUN (7.0-18.0) mg/dL Creatinine (0.8-1.3) mg/dL Est Cr Clr Drug Dosing mL/min Estimated GFR (MDRD) ml/min Glucose (74-106) mg/dL Calcium (8.5-10.1) mg/dL Total Bilirubin (0.2-1.0) mg/dL AST (15-37) IU/L ALT (14-63) IU/L Alkaline Phosphatase (46-116) U/L Total Protein (6.4-8.2) g/dL Albumin (3.4-5.0) g/dL Globulin (2.6-4.0) g/dL Albumin/Globulin Ratio (0.9-1.6) Fluid Type Fluid Color Fluid Appearance Fluid WBC /uL Fluid RBC /uL Fluid Mononuclear Cell % Fl Polymorphonucl Cell % Fluid Glucose mg/dL Fluid Total Protein g/dL Fluid Albumin g/dL Fluid LDH U/L Fluid Amylase U/L Fluid Triglycerides mg/dL PETAR Screen Negative (Negative) Double Strand DNA Ab 5 (0-9) IU/mL Anti-Smooth Muscle Ab 18 (0-19) Units 03/22/21 03/23/21 03/23/21 Range/Units 14:05 05:45 05:45 WBC 8.02 (4.0-11.0) K/uL RBC 3.40 L (4.50-5.90) M/uL Hgb 12.1 L (13.0-17.0) g/dL Hct 36.8 L (38.0-50.0) % MCV 108.2 H (80.0-98.0) fL MCH 35.6 H (27.0-32.0) pg MCHC 32.9 (31.0-37.0) g/dL RDW Std Deviation 63.8 H (28.0-62.0) fl RDW Coeff of Briseida 16 H (11.0-15.0) % Plt Count 114 L (150-400) K/uL MPV 10.80 (7.40-12.00) fL Neut % (Auto) 60.6 (48.0-80.0) % Lymph % (Auto) 28.7 (16.0-40.0) % [place] % (Auto) 8.5 (0.0-15.0) % Eos % (Auto) 1.5 (0.0-7.0) % Baso % (Auto) 0.7 (0.0-1.5) % Neut # (Auto) 4.9 (1.4-5.7) K/uL Lymph # (Auto) 2.3 (0.6-2.4) K/uL [place] # (Auto) 0.7 (0.0-0.8) K/uL Eos # (Auto) 0.1 (0.0-0.7) K/uL Baso # (Auto) 0.1 (0.0-0.1) K/uL Nucleated RBC % 0.0 /100WBC Nucleated RBCs # 0 K/uL Sodium 137 (136-148) mmol/L Potassium 3.8 (3.5-5.1) mmol/L Chloride 99 (98-107) mmol/L Carbon Dioxide 31.3 (21.0-32.0) mmol/L BUN 6 L (7.0-18.0) mg/dL Creatinine 1.1 (0.8-1.3) mg/dL Est Cr Clr Drug Dosing 110.69 mL/min Estimated GFR (MDRD) > 60.0 ml/min Glucose 95 (74-106) mg/dL Calcium 7.6 L (8.5-10.1) mg/dL Total Bilirubin 4.9 H (0.2-1.0) mg/dL AST 74 H (15-37) IU/L ALT 17 (14-63) IU/L Alkaline Phosphatase 82 (46-116) U/L Total Protein 8.2 (6.4-8.2) g/dL Albumin 2.0 L (3.4-5.0) g/dL Globulin 6.2 H (2.6-4.0) g/dL Albumin/Globulin Ratio 0.3 L (0.9-1.6) Fluid Type PER Fluid Color YELLOW Fluid Appearance CLEAR Fluid WBC 158 /uL Fluid RBC 0 /uL Fluid Mononuclear Cell 82 % Fl Polymorphonucl Cell 18 % Fluid Glucose 109 mg/dL Fluid Total Protein 1.6 g/dL Fluid Albumin 0.4 g/dL Fluid LDH 38 U/L Fluid Amylase 18 U/L Fluid Triglycerides 21 mg/dL PETAR Screen (Negative) Double Strand DNA Ab (0-9) IU/mL Anti-Smooth Muscle Ab (0-19) Units Result Diagrams: 03/23/21 05:45 03/23/21 05:45 Froilan Results Last 24 hrs: Microbiology 03/17/21 02:15 Miscellaneous Reference Culture - Final Peritoneal Fluid Gram Stain - Final Sepsis Event Note - Evaluation Sepsis Screening Result: Possible Sepsis Risk - Focused Exam Vital Signs: Vital Signs Temp Pulse Resp BP Pulse Ox 03/23/21 09:00 97.0 F 93 16 117/59 L 90 L 03/23/21 06:00 96 03/23/21 05:00 97.3 F 99 17 101/67 96 03/23/21 01:15 96.9 F 98 18 106/62 95 - Problem List & Annotations (1) Alcoholic cirrhosis SNOMED Code(s): 538048431 Code(s): K70.30 - ALCOHOLIC CIRRHOSIS OF LIVER WITHOUT ASCITES Status: Acute Current Visit: Yes (2) Alcohol abuse SNOMED Code(s): 79753639 Code(s): F10.10 - ALCOHOL ABUSE, UNCOMPLICATED Status: Acute Current Visit: Yes (3) Ascites SNOMED Code(s): 271371336 Code(s): R18.8 - OTHER ASCITES Status: Acute Current Visit: Yes - Problem List Review Problem List Initiated/Reviewed/Updated: Yes - My Orders Last 24 Hours: My Active Orders 03/23/21 12:00 oxyCODONE 5 mg PO Q4H PRN 03/24/21 05:11 CBC WITH AUTO DIFF [HEME] AM CMP [COMPREHENSIVE METABOLIC PN,CMP] [CHEM] AM - Assessment Assessment:: 1. Alcoholic cirrhosis with ascites -The patient had a paracentesis procedure done yesterday which revealed 5 L of ascites fluid. He continues to have pain and as a result his oxycodone medication will be changed to every 4 hours from 6. We will stay in the hospital for 1 more day. Moving forward the patient will follow up with GI specialists in [place]. -We will continue the patient on IV Zosyn, lactulose, spironolactone, Protonix, Zofran, thiamine, and Lasix. -We will continue with [facility] protocol for withdrawal symptoms with Ativan. -Continue daily CBC/CMP <Chel Shoemaker - Last Filed: 03/23/21 20:56> - General Info Subjective Update: I have seen and evaluated the patient and agree with the residents note unless specified in my note - Patient Data Vitals - Most Recent: Last Vital Signs Temp 36.2 C 03/23/21 20:00 Pulse 95 03/23/21 20:00 Resp 18 03/23/21 20:00 BP 122/74 03/23/21 20:00 Pulse Ox 92 L 03/23/21 20:00 I&O - Last 24 Hours: Intake & Output 03/23/21 03/23/21 03/23/21 06:59 14:59 22:59 Intake Total 550 720 Output Total 950 400 Balance -400 320 Lab Results Last 24 Hours: Laboratory Results - last 24 hr 03/23/21 03/23/21 03/23/21 Range/Units 05:45 05:45 14:33 WBC 8.02 (4.0-11.0) K/uL RBC 3.40 L (4.50-5.90) M/uL Hgb 12.1 L (13.0-17.0) g/dL Hct 36.8 L (38.0-50.0) % MCV 108.2 H (80.0-98.0) fL MCH 35.6 H (27.0-32.0) pg MCHC 32.9 (31.0-37.0) g/dL RDW Std Deviation 63.8 H (28.0-62.0) fl RDW Coeff of Briseida 16 H (11.0-15.0) % Plt Count 114 L (150-400) K/uL MPV 10.80 (7.40-12.00) fL Neut % (Auto) 60.6 (48.0-80.0) % Lymph % (Auto) 28.7 (16.0-40.0) % [place] % (Auto) 8.5 (0.0-15.0) % Eos % (Auto) 1.5 (0.0-7.0) % Baso % (Auto) 0.7 (0.0-1.5) % Neut # (Auto) 4.9 (1.4-5.7) K/uL Lymph # (Auto) 2.3 (0.6-2.4) K/uL [place] # (Auto) 0.7 (0.0-0.8) K/uL Eos # (Auto) 0.1 (0.0-0.7) K/uL Baso # (Auto) 0.1 (0.0-0.1) K/uL Nucleated RBC % 0.0 /100WBC Nucleated RBCs # 0 K/uL INR 1.81 Sodium 137 (136-148) mmol/L Potassium 3.8 (3.5-5.1) mmol/L Chloride 99 (98-107) mmol/L Carbon Dioxide 31.3 (21.0-32.0) mmol/L BUN 6 L (7.0-18.0) mg/dL Creatinine 1.1 (0.8-1.3) mg/dL Est Cr Clr Drug Dosing 110.69 mL/min Estimated GFR (MDRD) > 60.0 ml/min Glucose 95 (74-106) mg/dL Calcium 7.6 L (8.5-10.1) mg/dL Total Bilirubin 4.9 H (0.2-1.0) mg/dL AST 74 H (15-37) IU/L ALT 17 (14-63) IU/L Alkaline Phosphatase 82 (46-116) U/L Total Protein 8.2 (6.4-8.2) g/dL Albumin 2.0 L (3.4-5.0) g/dL Globulin 6.2 H (2.6-4.0) g/dL Albumin/Globulin Ratio 0.3 L (0.9-1.6) Med Orders - Current: Current Medications Acetaminophen (Acetaminophen 325 Mg Tab) 325 mg PO Q6H PRN PRN Reason: Pain Last Admin: 03/18/21 04:01 Dose: 325 mg Documented by: Albuterol/Ipratropium (Albuterol/Ipratropium 3.0-0.5 Mg/3 Ml Neb Soln) 3 ml NEB Q4HRRT PRN PRN Reason: Shortness Of Breath/wheezing Furosemide (Furosemide 40 Mg/4 Ml Vial) 40 mg IVPUSH BID [facility] Last Admin: 03/23/21 20:18 Dose: 40 mg Documented by: Pantoprazole Sodium 40 mg/ (Sodium Chloride) 10 mls @ 300 mls/hr IV DAILY [facility] Last Admin: 03/23/21 08:56 Dose: 300 mls/hr Documented by: Piperacillin Sod/Tazobactam (Sod 3.375 gm/ Sodium Chloride) 50 mls @ 100 mls/hr IV Q8H [facility] Last Admin: 03/23/21 20:14 Dose: 100 mls/hr Documented by: Lactulose (Lactulose Soln 10 Gm/15 Ml 15 Ml Ud Cup) 10 gm PO BID [facility] Last Admin: 03/23/21 20:18 Dose: 10 gm Documented by: Lorazepam (Lorazepam 2 Mg/Ml Sdv) 0 mg IVPUSH Q4H PRN; Protocol PRN Reason: Withdrawal Symptoms Ondansetron HCl (Ondansetron 4 Mg/2 Ml Sdv) 4 mg IVPUSH Q4H PRN PRN Reason: Nausea/Vomiting Oxycodone HCl (Oxycodone 5 Mg Tab) 5 mg PO Q4H PRN PRN Reason: Pain Last Admin: 03/23/21 20:17 Dose: 5 mg Documented by: Potassium Chloride (Potassium Chloride 20 Meq Tab.Er) 40 meq PO BID [facility] Last Admin: 03/23/21 20:16 Dose: 40 meq Documented by: Spironolactone (Spironolactone 25 Mg Tab) 25 mg PO DAILY [facility] Last Admin: 03/23/21 08:56 Dose: 25 mg Documented by: Thiamine HCl (Thiamine 100 Mg Tab) 100 mg PO BEDTIME [facility] Last Admin: 03/23/21 20:25 Dose: 100 mg Documented by: Discontinued Medications Furosemide (Furosemide 40 Mg/4 Ml Vial) 40 mg IVPUSH NOW ONE Stop: 03/19/21 09:53 Last Admin: 03/19/21 10:51 Dose: 40 mg Documented by: Sodium Chloride (Normal Saline) 1,000 mls @ 999 mls/hr IV ASDIRECTED [facility] Last Admin: 03/17/21 00:28 Dose: 999 mls/hr Documented by: Piperacillin Sod/Tazobactam (Sod 4.5 gm/ Sodium Chloride) 100 mls @ 100 mls/hr IV ONETIME ONE Stop: 03/17/21 05:33 Last Admin: 03/17/21 04:42 Dose: 100 mls/hr Documented by: Pantoprazole Sodium 80 mg/ (Sodium Chloride) 20 mls @ 420 mls/hr IVPUSH ONETIME ONE Stop: 03/17/21 05:17 Last Admin: 03/17/21 06:26 Dose: 420 mls/hr Documented by: Lactated Ringer's (Ringers, Lactated) 1,000 mls @ 125 mls/hr IV ASDIRECTED [facility] Stop: 03/17/21 23:00 Last Admin: 03/17/21 17:25 Dose: 125 mls/hr Documented by: Magnesium Sulfate 2 gm/ Premix 50 mls @ 200 mls/hr IV ONETIME ONE Stop: 03/17/21 20:25 Last Admin: 03/17/21 20:17 Dose: 200 mls/hr Documented by: Potassium Chloride/Sodium Chloride (Normal Saline With 40 Meq Kcl) 1,000 mls @ 250 mls/hr IV ONETIME ONE Stop: 03/18/21 13:44 Last Admin: 03/18/21 10:15 Dose: 250 mls/hr Documented by: Magnesium Sulfate (Magnesium Sulfate In Water 2 Gm/50 Ml) 50 mls @ 50 mls/hr IV NOW ONE Stop: 03/19/21 01:29 Last Admin: 03/19/21 00:52 Dose: 50 mls/hr Documented by: Magnesium Sulfate 2 gm/ Premix 50 mls @ 25 mls/hr IV ONETIME ONE Stop: 03/20/21 12:44 Last Admin: 03/20/21 10:49 Dose: 25 mls/hr Documented by: Magnesium Sulfate 4 gm/ Premix 100 mls @ 50 mls/hr IV ONETIME ONE Stop: 03/21/21 16:41 Last Admin: 03/21/21 15:11 Dose: 50 mls/hr Documented by: Iopamidol (Iopamidol 755 Mg/Ml 500 Ml Multipack Bottle) 100 ml IVPUSH ONETIME STA Stop: 03/17/21 00:23 Last Admin: 03/17/21 00:23 Dose: 100 ml Documented by: Iopamidol (Iopamidol 755 Mg/Ml 500 Ml Multipack Bottle) 100 ml IVPUSH ONETIME STA Stop: 03/21/21 15:58 Last Admin: 03/22/21 00:25 Dose: Not Given Documented by: Iopamidol (Iopamidol 755 Mg/Ml 500 Ml Multipack Bottle) 100 ml IVPUSH ONETIME STA Stop: 03/21/21 15:59 Last Admin: 03/21/21 15:58 Dose: 100 ml Documented by: Magnesium Oxide (Magnesium Oxide 400 Mg Tab) 800 mg PO ONETIME ONE Stop: 03/18/21 08:29 Last Admin: 03/18/21 09:58 Dose: 800 mg Documented by: Magnesium Sulfate (Magnesium Sulfate/Water 2 Gm/50 Ml Premix Bag) 2 gm IV ONETIME ONE Stop: 03/19/21 00:20 Oxycodone HCl (Oxycodone 5 Mg Tab) 5 mg PO Q8H PRN PRN Reason: Pain Last Admin: 03/18/21 13:16 Dose: 5 mg Documented by: Oxycodone HCl (Oxycodone 5 Mg Tab) 5 mg PO Q6H PRN PRN Reason: Pain Last Admin: 03/23/21 08:56 Dose: 5 mg Documented by: Phytonadione (Phytonadione 5 Mg Tab) 5 mg PO ONETIME ONE Stop: 03/17/21 05:16 Last Admin: 03/17/21 07:34 Dose: Not Given Documented by: Phytonadione (Phytonadione 10 Mg/1 Ml Amp) 5 mg PO ONETIME ONE Stop: 03/17/21 07:16 Last Admin: 03/17/21 07:32 Dose: 5 mg Documented by: Phytonadione (Phytonadione 10 Mg/1 Ml Amp) 5 mg PO ONETIME ONE Stop: 03/18/21 09:01 Potassium Chloride (Potassium Chloride 20 Meq Tab.Er) 40 meq PO ONETIME ONE Stop: 03/18/21 08:27 Last Admin: 03/18/21 09:57 Dose: 40 meq Documented by: Potassium Chloride (Potassium Chloride 20 Meq Tab.Er) 40 meq PO ONETIME ONE Stop: 03/18/21 11:01 Last Admin: 03/18/21 11:37 Dose: Not Given Documented by: Potassium Chloride (Potassium Chloride 20 Meq Tab.Er) 40 meq PO ONETIME ONE Stop: 03/18/21 21:01 Last Admin: 03/18/21 21:01 Dose: 40 meq Documented by: Potassium Chloride (Potassium Chloride 20 Meq Tab.Er) 40 meq PO ONETIME ONE Stop: 03/19/21 00:20 Last Admin: 03/19/21 01:21 Dose: Not Given Documented by: Sodium Phosphate (Phosphorus #1 250 Mg Tab) 250 mg PO QID GEORGE Stop: 03/21/21 09:00 Last Admin: 03/21/21 05:28 Dose: 250 mg Documented by: - Patient Data Lab Results Last 24 hrs: Laboratory Results - last 24 hr 11/08/0803/23/21 03/23/21 Range/Units 05:45 05:45 14:33 WBC 8.02 (4.0-11.0) K/uL RBC 3.40 L (4.50-5.90) M/uL Hgb 12.1 L (13.0-17.0) g/dL Hct 36.8 L (38.0-50.0) % MCV 108.2 H (80.0-98.0) fL MCH 35.6 H (27.0-32.0) pg MCHC 32.9 (31.0-37.0) g/dL RDW Std Deviation 63.8 H (28.0-62.0) fl RDW Coeff of Briseida 16 H (11.0-15.0) % Plt Count 114 L (150-400) K/uL MPV 10.80 (7.40-12.00) fL Neut % (Auto) 60.6 (48.0-80.0) % Lymph % (Auto) 28.7 (16.0-40.0) % [place] % (Auto) 8.5 (0.0-15.0) % Eos % (Auto) 1.5 (0.0-7.0) % Baso % (Auto) 0.7 (0.0-1.5) % Neut # (Auto) 4.9 (1.4-5.7) K/uL Lymph # (Auto) 2.3 (0.6-2.4) K/uL [place] # (Auto) 0.7 (0.0-0.8) K/uL Eos # (Auto) 0.1 (0.0-0.7) K/uL Baso # (Auto) 0.1 (0.0-0.1) K/uL Nucleated RBC % 0.0 /100WBC Nucleated RBCs # 0 K/uL INR 1.81 Sodium 137 (136-148) mmol/L Potassium 3.8 (3.5-5.1) mmol/L Chloride 99 (98-107) mmol/L Carbon Dioxide 31.3 (21.0-32.0) mmol/L BUN 6 L (7.0-18.0) mg/dL Creatinine 1.1 (0.8-1.3) mg/dL Est Cr Clr Drug Dosing 110.69 mL/min Estimated GFR (MDRD) > 60.0 ml/min Glucose 95 (74-106) mg/dL Calcium 7.6 L (8.5-10.1) mg/dL Total Bilirubin 4.9 H (0.2-1.0) mg/dL AST 74 H (15-37) IU/L ALT 17 (14-63) IU/L Alkaline Phosphatase 82 (46-116) U/L Total Protein 8.2 (6.4-8.2) g/dL Albumin 2.0 L (3.4-5.0) g/dL Globulin 6.2 H (2.6-4.0) g/dL Albumin/Globulin Ratio 0.3 L (0.9-1.6) Result Diagrams: 03/23/21 05:45 03/23/21 05:45 Sepsis Event Note - Focused Exam Vital Signs: Vital Signs Temp Pulse Resp BP Pulse Ox 03/23/21 20:00 36.2 C 95 18 122/74 92 L 03/23/21 17:00 36.2 C 101 H 18 115/59 L 92 L 03/23/21 13:00 36.1 C 96 16 121/59 L 94 L 03/23/21 09:00 36.1 C 93 16 117/59 L 90 L - My Orders Last 24 Hours: My Active Orders 03/24/21 05:11 INR,PT,PROTHROMBIN TIME [COAG] AM 03/25/21 05:11 INR,PT,PROTHROMBIN TIME [COAG] AM 03/26/21 05:11 INR,PT,PROTHROMBIN TIME [COAG] AM
[2021-03-23] MEDS: Thiamine 100 MG Tab PO SCH (20:25)
[2021-03-24] MEDS: oxyCODONE 5 MG Tab PO PRN ×3 (00:37→09:58)
[2021-03-24] MEDS: Piperacillin/Tazobactam 3.375 GM in Sodium Chloride 0.9% 50 ML IV SCH ×2 (05:51→13:27)
[2021-03-24 07:02] LABS: BLOOD UREA NITROGEN,BUN 7 mg/dL (7.0-18.0); CARBON DIOXIDE,CO2 32.1 mmol/L (21.0-32.0); CHLORIDE,CL 101 mmol/L (98-107); GLUCOSE RANDOM 94 mg/dL (74-106); POTASSIUM,K 4.3 mmol/L (3.5-5.1); SODIUM,NA 137 mmol/L (136-148)
[2021-03-24] MEDS: Lactulose Soln 10 GM/15 ML 15 ML UD Cup PO SCH (09:55)
[2021-03-24] MEDS: Pantoprazole 40 MG in Sodium Chloride 0.9% 10 ML IV SCH (09:55)
[2021-03-24] MEDS: Furosemide 40 MG/4 ML VIAL IVPUSH SCH (09:56)
[2021-03-24] MEDS: Potassium Chloride 20 MEQ Tab.ER PO SCH (09:56)
[2021-03-24] MEDS: Spironolactone 25 MG Tab PO SCH (09:57)
--- NOTE | 2021-03-24 11:28 | PCM.DCSUM1 ---
<Cristo Abarca - Last Filed: 03/24/21 11:22> Discharge Summary - Hospital Course Free Text/Narrative:: The patient is a 40-year-old male, on day 8 of service, with a significant past medical history of obesity with a BMI over 30, who was admitted due to alcoholic cirrhosis with ascites. The patient had two paracentesis procedures done while in hospital here. The first revealed 2 L of fluid and the second revealed 5 L of fluid. The ascites fluid was analyzed and he does not have SBP. The patient will have an appointment tomorrow at 11 AM in [place] with Dr. Willson, GI specialist. The AMS team here at the hospital has sent over labs, notes, and scans of the patient's abdomen to be reviewed by the [place] team. He will be further assessed there in hopes for definite treatment of his accumulation of ascites fluid. For pain while in hospital here he received oxycodone 5 mg per oral route and will be sent home on a prescription with an additional 4 pills until his appointment tomorrow. He will also be sent home on Lasix and spironolactone in order to diurese him and decrease the amount of fluid that is within his body. He will also be sent home on lactulose in attempts to decrease any chance of hepatic encephalopathy and promote evacuation. The patient is now stable and will be discharged. - Discharge Data Discharge Date: 03/24/21 Discharge Disposition: Home, Self-Care 01 Condition: Stable - Referral to Home Health Primary Care Physician: PCP None - Discharge Diagnosis/Problem(s) (1) Alcoholic cirrhosis SNOMED Code(s): 350321350 ICD Code: K70.30 - ALCOHOLIC CIRRHOSIS OF LIVER WITHOUT ASCITES Status: Acute (2) Alcohol abuse SNOMED Code(s): 22651022 ICD Code: F10.10 - ALCOHOL ABUSE, UNCOMPLICATED Status: Acute (3) Ascites SNOMED Code(s): 042680715 ICD Code: R18.8 - OTHER ASCITES Status: Acute - Patient Instructions Diet: Low Sodium Activity: As Tolerated Showering/Bathing: May Shower Other/Special Instructions: -If you have nausea, vomiting, or abdominal pain, return to the hospital. -Be compliant with medications. -Follow up with Dr. Willson in [place] on 03/25/2021 - Discharge Plan Prescriptions/Med Rec: Spironolactone [Aldactone] 25 mg PO DAILY #14 tablet Lactulose [Chronulac] 10 gm PO BID PRN #120 cup PRN Reason: Other Furosemide [Lasix] 40 mg PO BID #14 tab Potassium Chloride 20 meq PO DAILY #14 tablet.er Home Medications: Home Meds Furosemide [Lasix] 40 mg PO BID #14 tab 03/24/21 [Rx] Lactulose [Chronulac] 10 gm PO BID PRN #120 cup 03/24/21 [Rx] Potassium Chloride 20 meq PO DAILY #14 tablet.er 03/24/21 [Rx] Spironolactone [Aldactone] 25 mg PO DAILY #14 tablet 03/24/21 [Rx] Patient Handouts: Alcoholic Liver Disease, Sanl-he-Bzcc, Furosemide Oral Tablets, Potassium Chloride Extended-Release Capsules, Alcohol Abuse and Dependence Information, Adult, Hepatic Encephalopathy, Oxycodone tablets or capsules, Liver Failure, Spironolactone Oral Tablets, Alcohol Abuse and Nutrition, Finding Treatment for Addiction, Lactulose oral solution Referrals: Cristo Abarca MD [Resident] - 03/31/21 3:30 pm Carmine Willson MD [Ordering Only Provider] - 03/25/21 11:00 am - Discharge Summary/Plan Comment DC Time >30 min.: Yes Total # of Minutes for Discharge Time: 35 minutes - Review of Systems General: Denies: Fever, Fatigue HEENT: Denies: Headaches, Sore Throat Pulmonary: Denies: Shortness of Breath, Cough Cardiovascular: Denies: Chest Pain, Palpitations Gastrointestinal: Reports: Abdominal Pain. Denies: Constipation, Diarrhea, Nausea, Vomiting Genitourinary: Denies: Dysuria - Patient Data Vitals - Most Recent: Last Vital Signs Temp 98.0 F 03/24/21 07:28 Pulse 95 03/24/21 07:28 Resp 16 03/24/21 07:28 BP 118/62 03/24/21 07:28 Pulse Ox 94 L 03/24/21 07:28 Weight - Most Recent: 103.419 kg I&O - Last 24 hours: Intake & Output 03/23/21 03/24/21 03/24/21 22:59 06:59 14:59 Intake Total 770 550 8 Output Total 400 850 Balance 370 -300 8 Lab Results - Last 24 hrs: Laboratory Results - last 24 hr 03/22/21 03/23/21 03/24/21 Range/Units 14:05 14:33 05:35 WBC 6.43 (4.0-11.0) K/uL RBC 3.18 L (4.50-5.90) M/uL Hgb 11.4 L (13.0-17.0) g/dL Hct 34.6 L (38.0-50.0) % MCV 108.8 H (80.0-98.0) fL MCH 35.8 H (27.0-32.0) pg MCHC 32.9 (31.0-37.0) g/dL RDW Std Deviation 60.1 (28.0-62.0) fl RDW Coeff of Briseida 15 (11.0-15.0) % Plt Count 116 L (150-400) K/uL MPV 10.80 (7.40-12.00) fL Neut % (Auto) 58.0 (48.0-80.0) % Lymph % (Auto) 27.8 (16.0-40.0) % [place] % (Auto) 10.9 (0.0-15.0) % Eos % (Auto) 1.6 (0.0-7.0) % Baso % (Auto) 1.7 H (0.0-1.5) % Neut # (Auto) 3.7 (1.4-5.7) K/uL Lymph # (Auto) 1.8 (0.6-2.4) K/uL [place] # (Auto) 0.7 (0.0-0.8) K/uL Eos # (Auto) 0.1 (0.0-0.7) K/uL Baso # (Auto) 0.1 (0.0-0.1) K/uL INR 1.81 Sodium (136-148) mmol/L Potassium (3.5-5.1) mmol/L Chloride (98-107) mmol/L Carbon Dioxide (21.0-32.0) mmol/L BUN (7.0-18.0) mg/dL Creatinine (0.8-1.3) mg/dL Est Cr Clr Drug Dosing mL/min Estimated GFR (MDRD) ml/min Glucose (74-106) mg/dL Calcium (8.5-10.1) mg/dL Total Bilirubin (0.2-1.0) mg/dL AST (15-37) IU/L ALT (14-63) IU/L Alkaline Phosphatase (46-116) U/L Total Protein (6.4-8.2) g/dL Albumin (3.4-5.0) g/dL Globulin (2.6-4.0) g/dL Albumin/Globulin Ratio (0.9-1.6) Fluid Source Ascites Fluid Tot Bilirubin 1.3 mg/dL 03/24/21 03/24/21 Range/Units 05:35 05:35 WBC (4.0-11.0) K/uL RBC (4.50-5.90) M/uL Hgb (13.0-17.0) g/dL Hct (38.0-50.0) % MCV (80.0-98.0) fL MCH (27.0-32.0) pg MCHC (31.0-37.0) g/dL RDW Std Deviation (28.0-62.0) fl RDW Coeff of Briseida (11.0-15.0) % Plt Count (150-400) K/uL MPV (7.40-12.00) fL Neut % (Auto) (48.0-80.0) % Lymph % (Auto) (16.0-40.0) % [place] % (Auto) (0.0-15.0) % Eos % (Auto) (0.0-7.0) % Baso % (Auto) (0.0-1.5) % Neut # (Auto) (1.4-5.7) K/uL Lymph # (Auto) (0.6-2.4) K/uL [place] # (Auto) (0.0-0.8) K/uL Eos # (Auto) (0.0-0.7) K/uL Baso # (Auto) (0.0-0.1) K/uL INR 1.73 Sodium 137 (136-148) mmol/L Potassium 4.3 (3.5-5.1) mmol/L Chloride 101 (98-107) mmol/L Carbon Dioxide 32.1 H (21.0-32.0) mmol/L BUN 7 (7.0-18.0) mg/dL Creatinine 1.0 (0.8-1.3) mg/dL Est Cr Clr Drug Dosing 121.76 mL/min Estimated GFR (MDRD) > 60.0 ml/min Glucose 94 (74-106) mg/dL Calcium 7.6 L (8.5-10.1) mg/dL Total Bilirubin 4.7 H (0.2-1.0) mg/dL AST 72 H (15-37) IU/L ALT 17 (14-63) IU/L Alkaline Phosphatase 82 (46-116) U/L Total Protein 7.7 (6.4-8.2) g/dL Albumin 1.9 L (3.4-5.0) g/dL Globulin 5.8 H (2.6-4.0) g/dL Albumin/Globulin Ratio 0.3 L (0.9-1.6) Fluid Source Fluid Tot Bilirubin mg/dL Med Orders - Current: Current Medications Acetaminophen (Acetaminophen 325 Mg Tab) 325 mg PO Q6H PRN PRN Reason: Pain Last Admin: 03/18/21 04:01 Dose: 325 mg Documented by: Albuterol/Ipratropium (Albuterol/Ipratropium 3.0-0.5 Mg/3 Ml Neb Soln) 3 ml NEB Q4HRRT PRN PRN Reason: Shortness Of Breath/wheezing Furosemide (Furosemide 40 Mg/4 Ml Vial) 40 mg IVPUSH BID COUNTS INCLUDE 234 BEDS AT THE [facility] Last Admin: 03/24/21 09:56 Dose: 40 mg Documented by: Pantoprazole Sodium 40 mg/ (Sodium Chloride) 10 mls @ 300 mls/hr IV DAILY COUNTS INCLUDE 234 BEDS AT THE [facility] Last Admin: 03/24/21 09:55 Dose: 300 mls/hr Documented by: Piperacillin Sod/Tazobactam (Sod 3.375 gm/ Sodium Chloride) 50 mls @ 100 mls/hr IV Q8H COUNTS INCLUDE 234 BEDS AT THE [facility] Last Admin: 03/24/21 05:51 Dose: 100 mls/hr Documented by: Lactulose (Lactulose Soln 10 Gm/15 Ml 15 Ml Ud Cup) 10 gm PO BID COUNTS INCLUDE 234 BEDS AT [facility] Last Admin: 03/24/21 09:55 Dose: Not Given Documented by: Lorazepam (Lorazepam 2 Mg/Ml Sdv) 0 mg IVPUSH Q4H PRN; Protocol PRN Reason: Withdrawal Symptoms Ondansetron HCl (Ondansetron 4 Mg/2 Ml Sdv) 4 mg IVPUSH Q4H PRN PRN Reason: Nausea/Vomiting Oxycodone HCl (Oxycodone 5 Mg Tab) 5 mg PO Q4H PRN PRN Reason: Pain Last Admin: 03/24/21 09:58 Dose: 5 mg Documented by: Potassium Chloride (Potassium Chloride 20 Meq Tab.Er) 40 meq PO BID COUNTS INCLUDE 234 BEDS AT [facility] Last Admin: 03/24/21 09:56 Dose: 40 meq Documented by: Spironolactone (Spironolactone 25 Mg Tab) 25 mg PO DAILY COUNTS INCLUDE 234 BEDS AT [facility] Last Admin: 03/24/21 09:57 Dose: 25 mg Documented by: Thiamine HCl (Thiamine 100 Mg Tab) 100 mg PO BEDTIME COUNTS INCLUDE 234 BEDS AT THE [facility] Last Admin: 03/23/21 20:25 Dose: 100 mg Documented by: Discontinued Medications Furosemide (Furosemide 40 Mg/4 Ml Vial) 40 mg IVPUSH NOW ONE Stop: 03/19/21 09:53 Last Admin: 03/19/21 10:51 Dose: 40 mg Documented by: Sodium Chloride (Normal Saline) 1,000 mls @ 999 [facility]ls[facility] Last Admin: 03/17/21 00:28 Dose: 999 mls/hr Documented by: Piperacillin Sod/Tazobactam (Sod 4.5 gm/ Sodium Chloride) 100 mls @ 100 mls/hr IV ONETIME ONE Stop: 03/17/21 05:33 Last Admin: 03/17/21 04:42 Dose: 100 mls/hr Documented by: Pantoprazole Sodium 80 mg/ (Sodium Chloride) 20 mls @ 420 mls/hr IVPUSH ONETIME ONE Stop: 03/17/21 05:17 Last Admin: 03/17/21 06:26 Dose: 420 mls/hr Documented by: Lactated Ringer's (Ringers, Lactated) 1,000 mls @ 125 mls/hr IV ASDIRECTED COUNTS INCLUDE 234 BEDS AT THE [facility] Stop: 03/17/21 23:00 Last Admin: 03/17/21 17:25 Dose: 125 mls/hr Documented by: Magnesium Sulfate 2 gm/ Premix 50 mls @ 200 mls/hr IV ONETIME ONE Stop: 03/17/21 20:25 Last Admin: 03/17/21 20:17 Dose: 200 mls/hr Documented by: Potassium Chloride/Sodium Chloride (Normal Saline With 40 Meq Kcl) 1,000 mls @ 250 mls/hr IV ONETIME ONE Stop: 03/18/21 13:44 Last Admin: 03/18/21 10:15 Dose: 250 mls/hr Documented by: Magnesium Sulfate (Magnesium Sulfate In Water 2 Gm/50 Ml) 50 mls @ 50 mls/hr IV NOW ONE Stop: 03/19/21 01:29 Last Admin: 03/19/21 00:52 Dose: 50 mls/hr Documented by: Magnesium Sulfate 2 gm/ Premix 50 mls @ 25 mls/hr IV ONETIME ONE Stop: 03/20/21 12:44 Last Admin: 03/20/21 10:49 Dose: 25 mls/hr Documented by: Magnesium Sulfate 4 gm/ Premix 100 mls @ 50 mls/hr IV ONETIME ONE Stop: 03/21/21 16:41 Last Admin: 03/21/21 15:11 Dose: 50 mls/hr Documented by: Iopamidol (Iopamidol 755 Mg/Ml 500 Ml Multipack Bottle) 100 ml IVPUSH ONETIME STA Stop: 03/17/21 00:23 Last Admin: 03/17/21 00:23 Dose: 100 ml Documented by: Iopamidol (Iopamidol 755 Mg/Ml 500 Ml Multipack Bottle) 100 ml IVPUSH ONETIME STA Stop: 03/21/21 15:58 Last Admin: 03/22/21 00:25 Dose: Not Given Documented by: Iopamidol (Iopamidol 755 Mg/Ml 500 Ml Multipack Bottle) 100 ml IVPUSH ONETIME STA Stop: 03/21/21 15:59 Last Admin: 03/21/21 15:58 Dose: 100 ml Documented by: Magnesium Oxide (Magnesium Oxide 400 Mg Tab) 800 mg PO ONETIME ONE Stop: 03/18/21 08:29 Last Admin: 03/18/21 09:58 Dose: 800 mg Documented by: Magnesium Sulfate (Magnesium Sulfate/Water 2 Gm/50 Ml Premix Bag) 2 gm IV ONETIME ONE Stop: 03/19/21 00:20 Oxycodone HCl (Oxycodone 5 Mg Tab) 5 mg PO Q8H PRN PRN Reason: Pain Last Admin: 03/18/21 13:16 Dose: 5 mg Documented by: Oxycodone HCl (Oxycodone 5 Mg Tab) 5 mg PO Q6H PRN PRN Reason: Pain Last Admin: 03/23/21 08:56 Dose: 5 mg Documented by: Phytonadione (Phytonadione 5 Mg Tab) 5 mg PO ONETIME ONE Stop: 03/17/21 05:16 Last Admin: 03/17/21 07:34 Dose: Not Given Documented by: Phytonadione (Phytonadione 10 Mg/1 Ml Amp) 5 mg PO ONETIME ONE Stop: 03/17/21 07:16 Last Admin: 03/17/21 07:32 Dose: 5 mg Documented by: Phytonadione (Phytonadione 10 Mg/1 Ml Amp) 5 mg PO ONETIME ONE Stop: 03/18/21 09:01 Potassium Chloride (Potassium Chloride 20 Meq Tab.Er) 40 meq PO ONETIME ONE Stop: 03/18/21 08:27 Last Admin: 03/18/21 09:57 Dose: 40 meq Documented by: Potassium Chloride (Potassium Chloride 20 Meq Tab.Er) 40 meq PO ONETIME ONE Stop: 03/18/21 11:01 Last Admin: 03/18/21 11:37 Dose: Not Given Documented by: Potassium Chloride (Potassium Chloride 20 Meq Tab.Er) 40 meq PO ONETIME ONE Stop: 03/18/21 21:01 Last Admin: 03/18/21 21:01 Dose: 40 meq Documented by: Potassium Chloride (Potassium Chloride 20 Meq Tab.Er) 40 meq PO ONETIME ONE Stop: 03/19/21 00:20 Last Admin: 03/19/21 01:21 Dose: Not Given Documented by: Sodium Phosphate (Phosphorus #1 250 Mg Tab) 250 mg PO QID GEORGE Stop: 03/21/21 09:00 Last Admin: 03/21/21 05:28 Dose: 250 mg Documented by: - Exam General: Reports: Alert, Oriented, Cooperative HEENT: Reports: Mucous Membr. Moist/[place] Neck: Denies: Lymphadenopathy Lungs: Reports: Clear to Auscultation, Normal Respiratory Effort Cardiovascular: Reports: Regular Rate, Regular Rhythm GI/Abdominal Exam: Normal Bowel Sounds, Distended, Tender <Sd oYrk - Last Filed: 03/24/21 14:48> Discharge Summary - Referral to Home Health Primary Care Physician: PCP None - Patient Data Vitals - Most Recent: Last Vital Signs Temp 36.5 C 03/24/21 11:55 Pulse 95 03/24/21 11:55 Resp 18 03/24/21 11:55 BP 114/65 03/24/21 11:55 Pulse Ox 94 L 03/24/21 11:55 I&O - Last 24 hours: Intake & Output 03/23/21 03/24/21 03/24/21 22:59 06:59 14:59 Intake Total 770 550 8 Output Total 400 850 Balance 370 -300 8 Lab Results - Last 24 hrs: Laboratory Results - last 24 hr 03/22/21 03/23/21 03/24/21 Range/Units 14:05 14:33 05:35 WBC 6.43 (4.0-11.0) K/uL RBC 3.18 L (4.50-5.90) M/uL Hgb 11.4 L (13.0-17.0) g/dL Hct 34.6 L (38.0-50.0) % MCV 108.8 H (80.0-98.0) fL MCH 35.8 H (27.0-32.0) pg MCHC 32.9 (31.0-37.0) g/dL RDW Std Deviation 60.1 (28.0-62.0) fl RDW Coeff of Briseida 15 (11.0-15.0) % Plt Count 116 L (150-400) K/uL MPV 10.80 (7.40-12.00) fL Neut % (Auto) 58.0 (48.0-80.0) % Lymph % (Auto) 27.8 (16.0-40.0) % [place] % (Auto) 10.9 (0.0-15.0) % Eos % (Auto) 1.6 (0.0-7.0) % Baso % (Auto) 1.7 H (0.0-1.5) % Neut # (Auto) 3.7 (1.4-5.7) K/uL Lymph # (Auto) 1.8 (0.6-2.4) K/uL [place] # (Auto) 0.7 (0.0-0.8) K/uL Eos # (Auto) 0.1 (0.0-0.7) K/uL Baso # (Auto) 0.1 (0.0-0.1) K/uL INR 1.81 Sodium (136-148) mmol/L Potassium (3.5-5.1) mmol/L Chloride (98-107) mmol/L Carbon Dioxide (21.0-32.0) mmol/L BUN (7.0-18.0) mg/dL Creatinine (0.8-1.3) mg/dL Est Cr Clr Drug Dosing mL/min Estimated GFR (MDRD) ml/min Glucose (74-106) mg/dL Calcium (8.5-10.1) mg/dL Total Bilirubin (0.2-1.0) mg/dL AST (15-37) IU/L ALT (14-63) IU/L Alkaline Phosphatase (46-116) U/L Total Protein (6.4-8.2) g/dL Albumin (3.4-5.0) g/dL Globulin (2.6-4.0) g/dL Albumin/Globulin Ratio (0.9-1.6) Fluid Source Ascites Fluid Tot Bilirubin 1.3 mg/dL 03/24/21 03/24/21 Range/Units 05:35 05:35 WBC (4.0-11.0) K/uL RBC (4.50-5.90) M/uL Hgb (13.0-17.0) g/dL Hct (38.0-50.0) % MCV (80.0-98.0) fL MCH (27.0-32.0) pg MCHC (31.0-37.0) g/dL RDW Std Deviation (28.0-62.0) fl RDW Coeff of Briseida (11.0-15.0) % Plt Count (150-400) K/uL MPV (7.40-12.00) fL Neut % (Auto) (48.0-80.0) % Lymph % (Auto) (16.0-40.0) % [place] % (Auto) (0.0-15.0) % Eos % (Auto) (0.0-7.0) % Baso % (Auto) (0.0-1.5) % Neut # (Auto) (1.4-5.7) K/uL Lymph # (Auto) (0.6-2.4) K/uL [place] # (Auto) (0.0-0.8) K/uL Eos # (Auto) (0.0-0.7) K/uL Baso # (Auto) (0.0-0.1) K/uL INR 1.73 Sodium 137 (136-148) mmol/L Potassium 4.3 (3.5-5.1) mmol/L Chloride 101 (98-107) mmol/L Carbon Dioxide 32.1 H (21.0-32.0) mmol/L BUN 7 (7.0-18.0) mg/dL Creatinine 1.0 (0.8-1.3) mg/dL Est Cr Clr Drug Dosing 121.76 mL/min Estimated GFR (MDRD) > 60.0 ml/min Glucose 94 (74-106) mg/dL Calcium 7.6 L (8.5-10.1) mg/dL Total Bilirubin 4.7 H (0.2-1.0) mg/dL AST 72 H (15-37) IU/L ALT 17 (14-63) IU/L Alkaline Phosphatase 82 (46-116) U/L Total Protein 7.7 (6.4-8.2) g/dL Albumin 1.9 L (3.4-5.0) g/dL Globulin 5.8 H (2.6-4.0) g/dL Albumin/Globulin Ratio 0.3 L (0.9-1.6) Fluid Source Fluid Tot Bilirubin mg/dL MAHOGANY Results - Last 24 hrs: Microbiology 03/22/21 14:05 Gram Stain - Final Ascities Fluid Med Orders - Current: Current Medications Discontinued Medications Acetaminophen (Acetaminophen 325 Mg Tab) 325 mg PO Q6H PRN PRN Reason: Pain Last Admin: 03/18/21 04:01 Dose: 325 mg Documented by: Albuterol/Ipratropium (Albuterol/Ipratropium 3.0-0.5 Mg/3 Ml Neb Soln) 3 ml NEB Q4HRRT PRN PRN Reason: Shortness Of Breath/wheezing Furosemide (Furosemide 40 Mg/4 Ml Vial) 40 mg IVPUSH NOW ONE Stop: 03/19/21 09:53 Last Admin: 03/19/21 10:51 Dose: 40 mg Documented by: Furosemide (Furosemide 40 Mg/4 Ml Vial) 40 mg IVPUSH BID COUNTS INCLUDE 234 BEDS AT THE [facility] Last Admin: 03/24/21 09:56 Dose: 40 mg Documented by: Sodium Chloride (Normal Saline) 1,000 mls @ 999 mls/hr IV ASDIRECTED COUNTS INCLUDE 234 BEDS AT [facility] Last Admin: 03/17/21 00:28 Dose: 999 mls/hr Documented by: Piperacillin Sod/Tazobactam (Sod 4.5 gm/ Sodium Chloride) 100 mls @ 100 mls/hr IV ONETIME ONE Stop: 03/17/21 05:33 Last Admin: 03/17/21 04:42 Dose: 100 mls/hr Documented by: Pantoprazole Sodium 80 mg/ (Sodium Chloride) 20 mls @ 420 mls/hr IVPUSH ONETIME ONE Stop: 03/17/21 05:17 Last Admin: 03/17/21 06:26 Dose: 420 mls/hr Documented by: Lactated Ringer's (Ringers, Lactated) 1,000 mls @ 125 mls/hr IV ASDIRECTED COUNTS INCLUDE 234 BEDS AT THE [facility] Stop: 03/17/21 23:00 Last Admin: 03/17/21 17:25 Dose: 125 mls/hr Documented by: Pantoprazole Sodium 40 mg/ (Sodium Chloride) 10 mls @ 300 mls/hr IV DAILY COUNTS INCLUDE 234 BEDS AT [facility] Last Admin: 03/24/21 09:55 Dose: 300 mls/hr Documented by: Piperacillin Sod/Tazobactam (Sod 3.375 gm/ Sodium Chloride) 50 mls @ 100 mls/hr IV Q8H COUNTS INCLUDE 234 BEDS AT [facility] Last Admin: 03/24/21 13:27 Dose: Not Given Documented by: Magnesium Sulfate 2 gm/ Premix 50 mls @ 200 mls/hr IV ONETIME ONE Stop: 03/17/21 20:25 Last Admin: 03/17/21 20:17 Dose: 200 mls/hr Documented by: Potassium Chloride/Sodium Chloride (Normal Saline With 40 Meq Kcl) 1,000 mls @ 250 mls/hr IV ONETIME ONE Stop: 03/18/21 13:44 Last Admin: 03/18/21 10:15 Dose: 250 mls/hr Documented by: Magnesium Sulfate (Magnesium Sulfate In Water 2 Gm/50 Ml) 50 mls @ 50 mls/hr IV NOW ONE Stop: 03/19/21 01:29 Last Admin: 03/19/21 00:52 Dose: 50 mls/hr Documented by: Magnesium Sulfate 2 gm/ Premix 50 mls @ 25 mls/hr IV ONETIME ONE Stop: 03/20/21 12:44 Last Admin: 03/20/21 10:49 Dose: 25 mls/hr Documented by: Magnesium Sulfate 4 gm/ Premix 100 mls @ 50 mls/hr IV ONETIME ONE Stop: 03/21/21 16:41 Last Admin: 03/21/21 15:11 Dose: 50 mls/hr Documented by: Iopamidol (Iopamidol 755 Mg/Ml 500 Ml Multipack Bottle) 100 ml IVPUSH ONETIME STA Stop: 03/17/21 00:23 Last Admin: 03/17/21 00:23 Dose: 100 ml Documented by: Iopamidol (Iopamidol 755 Mg/Ml 500 Ml Multipack Bottle) 100 ml IVPUSH ONETIME STA Stop: 03/21/21 15:58 Last Admin: 03/22/21 00:25 Dose: Not Given Documented by: Iopamidol (Iopamidol 755 Mg/Ml 500 Ml Multipack Bottle) 100 ml IVPUSH ONETIME STA Stop: 03/21/21 15:59 Last Admin: 03/21/21 15:58 Dose: 100 ml Documented by: Lactulose (Lactulose Soln 10 Gm/15 Ml 15 Ml Ud Cup) 10 gm PO BID GEORGE Last Admin: 03/24/21 09:55 Dose: Not Given Documented by: Lorazepam (Lorazepam 2 Mg/Ml Sdv) 0 mg IVPUSH Q4H PRN; Protocol PRN Reason: Withdrawal Symptoms Magnesium Oxide (Magnesium Oxide 400 Mg Tab) 800 mg PO ONETIME ONE Stop: 03/18/21 08:29 Last Admin: 03/18/21 09:58 Dose: 800 mg Documented by: Magnesium Sulfate (Magnesium Sulfate/Water 2 Gm/50 Ml Premix Bag) 2 gm IV ONETIME ONE Stop: 03/19/21 00:20 Ondansetron HCl (Ondansetron 4 Mg/2 Ml Sdv) 4 mg IVPUSH Q4H PRN PRN Reason: Nausea/Vomiting Oxycodone HCl (Oxycodone 5 Mg Tab) 5 mg PO Q8H PRN PRN Reason: Pain Last Admin: 03/18/21 13:16 Dose: 5 mg Documented by: Oxycodone HCl (Oxycodone 5 Mg Tab) 5 mg PO Q6H PRN PRN Reason: Pain Last Admin: 03/23/21 08:56 Dose: 5 mg Documented by: Oxycodone HCl (Oxycodone 5 Mg Tab) 5 mg PO Q4H PRN PRN Reason: Pain Last Admin: 03/24/21 09:58 Dose: 5 mg Documented by: Phytonadione (Phytonadione 5 Mg Tab) 5 mg PO ONETIME ONE Stop: 03/17/21 05:16 Last Admin: 03/17/21 07:34 Dose: Not Given Documented by: Phytonadione (Phytonadione 10 Mg/1 Ml Amp) 5 mg PO ONETIME ONE Stop: 03/17/21 07:16 Last Admin: 03/17/21 07:32 Dose: 5 mg Documented by: Phytonadione (Phytonadione 10 Mg/1 Ml Amp) 5 mg PO ONETIME ONE Stop: 03/18/21 09:01 Potassium Chloride (Potassium Chloride 20 Meq Tab.Er) 40 meq PO ONETIME ONE Stop: 03/18/21 08:27 Last Admin: 03/18/21 09:57 Dose: 40 meq Documented by: Potassium Chloride (Potassium Chloride 20 Meq Tab.Er) 40 meq PO ONETIME ONE Stop: 03/18/21 11:01 Last Admin: 03/18/21 11:37 Dose: Not Given Documented by: Potassium Chloride (Potassium Chloride 20 Meq Tab.Er) 40 meq PO ONETIME ONE Stop: 03/18/21 21:01 Last Admin: 03/18/21 21:01 Dose: 40 meq Documented by: Potassium Chloride (Potassium Chloride 20 Meq Tab.Er) 40 meq PO ONETIME ONE Stop: 03/19/21 00:20 Last Admin: 03/19/21 01:21 Dose: Not Given Documented by: Potassium Chloride (Potassium Chloride 20 Meq Tab.Er) 40 meq PO BID COUNTS INCLUDE 234 BEDS AT THE [facility] Last Admin: 03/24/21 09:56 Dose: 40 meq Documented by: Sodium Phosphate (Phosphorus #1 250 Mg Tab) 250 mg PO QID COUNTS INCLUDE 234 BEDS AT THE [facility] Stop: 03/21/21 09:00 Last Admin: 03/21/21 05:28 Dose: 250 mg Documented by: Spironolactone (Spironolactone 25 Mg Tab) 25 mg PO DAILY COUNTS INCLUDE 234 BEDS AT THE [facility] Last Admin: 03/24/21 09:57 Dose: 25 mg Documented by: Thiamine HCl (Thiamine 100 Mg Tab) 100 mg PO BEDTIME [facility] Last Admin: 03/23/21 20:25 Dose: 100 mg Documented by: - Free Text/Narrative Note: I have seen and examined the patient. I have discussed findings and treatment plan with the resident. I agree with the assessment and plan outlined in the following note.
== END 2021-03-24 13:20 | disposition home or self-care (01) | DRG 434 ==
LOC: MW.ED 22:01 → MW.MS 03-17 05:16
PROVIDERS: ADMIT Student in an Organized Health Care Education/Training Program; ATTEND Student in an Organized Health Care Education/Training Program
PROC: 0W9G3ZZ Drainage of Peritoneal Cavity, Percutaneous Approach (ICD-10-PCS; principal; 2021-03-17)
DX: K70.40 Alcoholic hepatic failure without coma (principal); K70.31 Alcoholic cirrhosis of liver with ascites; E66.9 Obesity, unspecified; F10.10 Alcohol abuse, uncomplicated; K80.20 Calculus of gallbladder without cholecystitis without obstruction; F17.210 Nicotine dependence, cigarettes, uncomplicated; G89.29 Other chronic pain; M25.552 Pain in left hip; Z79.899 Other long term (current) drug therapy; Z86.19 Personal history of other infectious and parasitic diseases; Z20.822 Contact with and (suspected) exposure to COVID-19; Z68.27 Body mass index [BMI] 27.0-27.9, adult
CPT/HCPCS: 36415; 49083; 71045; 71045-26; 74177; 74177-26; 80048; 80053; 80074; 80143; 80179; 80307; 81001; 82140; 82150; 82447; 82550; 82945; 83516; 83520; 83605; 83615; 83690; 83735; 84100; 84157; 84478; 85025; 85027; 85610; 86038; 86140; 86225; 86255; 86256; 86706; 86803; 87040; 87070; 87086; 87205; 87340; 89050; 96365; 99285-25; A9270-GY; C1729; C9113; J1940; J2543; J3430; J3475; J3480; J7030; J7120; Q9967; U0002